=== PATIENT | male | born 1985 | race American Indian/Alaskan Native ===

== ENCOUNTER 2019-09-05 02:27 | Emergency (ER) | payer SELFPAY ==
[2019-09-05 03:09] LABS: Basophils % (Auto) 0.3 % (0.0-1.8); Eosinophils # (Auto) 0.1 K/mm3 (0.0-0.4); Eosinophils % (Auto) 2.5 % (0.0-4.3); Hematocrit 36.6 % (35.5-45.6); Hemoglobin 12.5 gm/dl (11.8-15.2); Lymphocytes # (Auto) 0.9 K/mm3 (1.2-5.4); Lymphocytes % (Auto) 14.6 % (13.4-35.0); Mean Corpuscular HGB Conc 34 % (32-34); Mean Corpuscular Volume 84 fl (84-94); Monocytes # (Auto) 0.4 K/mm3 (0.0-0.8); Monocytes % (Auto) 6.9 % (0.0-7.3); Platelet Count 213 K/mm3 (140-440); Red Blood Count 4.38 M/mm3 (3.65-5.03); Red Cell Distribution Width 14.6 % (13.2-15.2)
[2019-09-05 03:22] LABS: Alanine Aminotransferase 10 units/L (7-56); Albumin 4.4 g/dL (3.9-5); BUN/Creatinine Ratio 14; Blood Urea Nitrogen 10 mg/dL (9-20); Calcium 8.6 mg/dL (8.4-10.2); Hemolysis Index 5
[2019-09-05] MEDS ORDERED: SODIUM CHLORIDE 0.9% 1000 ML 1,000 ML IV ONE (03:49)
[2019-09-05] MEDS ORDERED: MORPHINE 2 MG/1 ML INJ IV ONE (03:49)
[2019-09-05] MEDS ORDERED: methylPREDNISolone Sod Succinate 125 MG/2 ML INJ IV ONE (03:49)
[2019-09-05] MEDS ORDERED: KETOROLAC 30 MG/1 ML INJ IV ONE (03:49)
--- NOTE | 2019-09-05 04:02 | Emergency Department Report ---
ED N/V/D HPI - General Chief complaint: Abdominal Pain Stated complaint: VOMITING,BOTH EAR PAIN,SORE NECK,WHITE STOOL Time Seen by Provider: 09/05/19 03:37 Source: patient Mode of arrival: Ambulatory Limitations: No Limitations - History of Present Illness Initial comments: 34-year-old male presents to ED with report of 2 week history of diarrhea. Antionette ent reports history of Crohn's disease and HIV. States he is not currently on treatment for his Crohn's or HIV. Unknown viral load and CD4 count. A reports left lower quadrant pain, nausea or vomiting. Denies fever. Patient reports that his diarrhea is white and frothy. No improvement with imodium. Patient denies history of any abdominal surgeries. MD complaint: nausea, vomiting, diarrhea, abdominal pain -: week(s) (2) Description of Vomiting: food contents, watery Description of Diarrhea: other (white and frothy) Associated Abdominal Pain: Yes Location: LLQ Radiation: none Severity: moderate Quality: cramping Consistency: intermittent Improves with: none Worsens with: none Context: other (hx of Crohn's) Associated Symptoms: nausea/vomiting. denies: fever/chills - Related Data Previous Rx's Medication Instructions Recorded Last Taken Type HYDROcodone/APAP 5-325 [Oakley 1 - 2 each PO Q6HR PRN #14 tablet 01/08/19 Unknown Rx 5/325] Prednisone [predniSONE 10 mg 10 mg PO .TAPER #1 tab.ds.pk 01/08/19 Unknown Rx (6-Day Pack, 21 Tabs)] Promethazine [Phenergan] 25 mg CO Q6HR PRN #5 supp.rect 01/08/19 Unknown Rx Dicyclomine [Bentyl] 20 mg PO QID PRN #20 tablet 09/05/19 Unknown Rx Diphenoxylate/Atropine [Lomotil] 2 tab PO QID PRN #30 tablet 09/05/19 Unknown Rx Promethazine [Phenergan] 25 mg PO Q6HR PRN #20 tab 09/05/19 Unknown Rx traMADol [Ultram] 50 mg PO Q6HR PRN #7 tablet 09/05/19 Unknown Rx Allergies Allergy/AdvReac Type Severity Reaction Status Date / Time ondansetron [From Zofran] AdvReac Unknown Verified 01/08/19 02:21 ED Review of Systems ROS: Stated complaint: VOMITING,BOTH EAR PAIN,SORE NECK,WHITE STOOL Other details as noted in HPI Comment: All other systems reviewed and negative Constitutional: denies: chills, fever Gastrointestinal: abdominal pain, nausea, vomiting, diarrhea ED Past Medical Hx - Past Medical History Previous Medical History?: Yes Hx HIV: Yes (unknown CD4 count) Additional medical history: Crohns Disease - Surgical History Additional Surgical History: Colonoscopy goes to [facility] - Social History Smoking Status: Current Every Day Smoker Substance Use Type: Marijuana - Medications Home Medications: Home Medications Medication Instructions Recorded Confirmed Last Taken Type HYDROcodone/APAP 5-325 [Oakley 1 - 2 each PO Q6HR PRN #14 tablet 01/08/19 Unknown Rx 5/325] Prednisone [predniSONE 10 mg 10 mg PO .TAPER #1 tab.ds.pk 01/08/19 Unknown Rx (6-Day Pack, 21 Tabs)] Promethazine [Phenergan] 25 mg CO Q6HR PRN #5 supp.rect 01/08/19 Unknown Rx Dicyclomine [Bentyl] 20 mg PO QID PRN #20 tablet 09/05/19 Unknown Rx Diphenoxylate/Atropine [Lomotil] 2 tab PO QID PRN #30 tablet 09/05/19 Unknown Rx Promethazine [Phenergan] 25 mg PO Q6HR PRN #20 tab 09/05/19 Unknown Rx traMADol [Ultram] 50 mg PO Q6HR PRN #7 tablet 09/05/19 Unknown Rx ED Physical Exam - General Limitations: No Limitations General appearance: alert, in no apparent distress - Head Head exam: Present: atraumatic, normocephalic - Eye Eye exam: Present: normal appearance - ENT ENT exam: Present: mucous membranes moist - Neck Neck exam: Present: normal inspection - Respiratory Respiratory exam: Present: normal lung sounds bilaterally. Absent: respiratory distress - Cardiovascular Cardiovascular Exam: Present: regular rate, normal rhythm - GI/Abdominal GI/Abdominal exam: Present: soft, tenderness (mild LLQ tenderness). Absent: distended, guarding, rebound - Extremities Exam Extremities exam: Present: normal inspection - Neurological Exam Neurological exam: Present: alert, oriented X3 - Psychiatric Psychiatric exam: Present: normal affect, normal mood - Skin Skin exam: Present: warm, dry, intact, normal color. Absent: rash ED Course Vital Signs 09/05/19 09/05/19 02:31 04:15 Temperature 98.2 F 98 F Pulse Rate 96 H 93 H Respiratory 18 20 Rate Blood Pressure 118/82 Blood Pressure 117/82 [Left] O2 Sat by Pulse 97 99 Oximetry ED Medical Decision Making - Lab Data Result diagrams: 09/05/19 02:48 09/05/19 02:48 - Radiology Data Radiology results: report reviewed, image reviewed - Medical Decision Making Patient is nontoxic appearing. Labs normal, CT scan unremarkable. Vital signs normal. Patient received IV fluids, pain medication here in the ED. Lomotil given. Stool culture sent. Will discharge at this time. Patient states he has a certified court/medical interpreter at [place] that he will be following up with. Return precautions given. - Differential Diagnosis Crohn's flare, cryptosporidia, bowel obstruction Critical care attestation.: If time is entered above; I have spent that time in minutes in the direct care of this critically ill patient, excluding procedure time. ED Disposition Clinical Impression: Vomiting and diarrhea, Abdominal pain Disposition: TO HOME OR SELFCARE Is pt being admited?: No Condition: Stable Instructions: Abdominal Pain (ED), Nutrition Tips for Relief of Diarrhea (ED), Acute Diarrhea (ED) Prescriptions: Dicyclomine [Bentyl] 20 mg PO QID PRN #20 tablet PRN Reason: abdominal pain Diphenoxylate/Atropine [Lomotil] 2 tab PO QID PRN #30 tablet PRN Reason: Diarrhea Promethazine [Phenergan] 25 mg PO Q6HR PRN #20 tab PRN Reason: Nausea traMADol [Ultram] 50 mg PO Q6HR PRN #7 tablet PRN Reason: Pain Referrals: PRIMARY CARE, [Primary Care Provider] - 3-5 Days [facility] [Provider Group] - 3-5 Days Time of Disposition: 05:25
--- NOTE | 2019-09-05 05:05 | Cat Scan Report ---
CT ABDOMEN AND PELVIS WITH CONTRAST INDICATION / CLINICAL INFORMATION: abd pain, diarrhea, hx Crohn's. TECHNIQUE: Axial CT images were obtained through the abdomen and pelvis after 100 mL Omnipaque [address] scans at this location are performed using CT dose reduction for ALARA by means of automated exposure control. COMPARISON: CT abdomen pelvis 01/08/2019 FINDINGS: LOWER CHEST: No significant abnormality. LIVER: No significant abnormality. BILIARY SYSTEM: No significant abnormality. PANCREAS: No significant abnormality. SPLEEN: No significant abnormality. ADRENALS: No significant abnormality. KIDNEYS and URETERS: No significant abnormality. STOMACH / BOWEL: The distal small bowel as well as the colon are prominent and fluid-filled with mild mucosal hyperenhancement. No significant wall thickening or pericolonic inflammatory change noted. T here is no evidence of bowel obstruction. No definite evidence for strictures. PERITONEUM: No free fluid. No free air. No fluid collection. LYMPH NODES: No significant adenopathy. VASCULAR STRUCTURES: No significant abnormality. URINARY BLADDER: No significant abnormality. REPRODUCTIVE ORGANS: No significant abnormality. ADDITIONAL FINDINGS: None. SKELETAL SYSTEM: No significant abnormality. IMPRESSION: 1. Prominent, fluid-filled loops of distal small bowel and colon. Findings may be seen in the setting of a diarrheal illness, which may be either infectious or inflammatory in etiology. No evidence of b owel obstruction or significant perienteric inflammation. Signer Name: Radha Díaz MD Signed: 09/05/2019 5:00 AM Workstation Name: [id number]
[2019-09-05] MEDS ORDERED: DIPHENOXYLATE/ATROPINE TAB PO ONE (05:26)
[2019-09-05 06:15] VITALS: BP 115/79
== END 2019-09-05 06:42 | disposition home or self-care (01) ==
LOC: ED 02:27
DX: R11.2 Nausea with vomiting, unspecified (principal); R19.7 Diarrhea, unspecified; R10.32 Left lower quadrant pain; F17.200 Nicotine dependence, unspecified, uncomplicated; F12.10 Cannabis abuse, uncomplicated; Z79.899 Other long term (current) drug therapy; Z21 Asymptomatic human immunodeficiency virus [HIV] infection status; Z88.8 Allergy status to other drugs, medicaments and biological substances
CPT/HCPCS: 36415; 74177; 80053; 85025; 96361; 96374; 96375; 99284; J1885; J2270; J2930; J7030; Q9967

== ENCOUNTER 2020-09-02 12:39 | Inpatient (IN) | payer MEDICARE ==
--- NOTE | 2020-09-02 14:50 | Emergency Department Report ---
ED Fever HPI - General Chief Complaint: Fever Stated Complaint: CHEST PAIN PUI?: No Time Seen by Provider: 09/02/20 13:02 Source: patient Exam Limitations: no limitations - History of Present Illness Initial Comments: This is a 35-year-old male with history of HIV/AIDS, methamphetamine abuse, Crohn's disease, ulcerative colitis, possible lymphoma who presents with fever chest pain dark stools, enlarged lymph nodes. Patient has been ill for 1 week. He has had intermittent chest pressure sensation, central moderate severity no radiation. Chest pain began 1 week ago. He also has enlarged inflamed lymph nodes in his axillary region and groin. He has had dark stools. According to EMR CD4 count 20. Timing/Duration: week (1) Fever Severity/Quality: subjective Associated Symptoms: chest pain, other (dark stools) ED Review of Systems ROS: Stated complaint: CHEST PAIN Other details as noted in HPI Comment: All other systems reviewed and negative Constitutional: fever, malaise Cardiovascular: chest pain Gastrointestinal: hematochezia. denies: abdominal pain, nausea, vomiting ED Past Medical Hx - Past Medical History Previous Medical History?: Yes Hx Congestive Heart Failure: No Hx Diabetes: No Hx Asthma: No Hx COPD: No Hx HIV: Yes Additional medical history: Crohns Disease. lyphoma - Surgical History Past Surgical History?: Yes Additional Surgical History: Colonoscopy goes to [facility] - Social History Smoking Status: Never Smoker Substance Use Type: None - Medications Home Medications: Home Medications Medication Instructions Recorded Confirmed Last Taken Type Fluconazole [Diflucan TAB] 200 mg PO QDAY #7 tablet 07/17/20 Unknown Rx Sulfamethoxazole/Trimethoprim 1 each PO DAILY #30 tablet 07/17/20 Unknown Rx [Bactrim DS TAB] ED Physical Exam - General Limitations: No Limitations General appearance: alert, in no apparent distress, other (Frail, dry skin, thin hair) - Head Head exam: Present: atraumatic, normocephalic - Eye Eye exam: Present: normal appearance - ENT ENT exam: Present: mucous membranes dry - Neck Neck exam: Present: normal inspection, full ROM - Respiratory Respiratory exam: Present: normal lung sounds bilaterally. Absent: respiratory distress, wheezes, rales, rhonchi - Cardiovascular Cardiovascular Exam: Present: regular rate, normal rhythm, normal heart sounds. Absent: systolic murmur, diastolic murmur, rubs, gallop - GI/Abdominal GI/Abdominal exam: Present: soft, normal bowel sounds. Absent: distended, tenderness, guarding, rebound - Rectal Rectal exam: Present: heme (-) stool (light brown stool) - Extremities Exam Extremities exam: Present: normal inspection - Neurological Exam Neurological exam: Present: alert, oriented X3 - Psychiatric Psychiatric exam: Present: normal affect, normal mood - Skin Skin exam: Present: pallor, other (Dry flaky skin on face). Absent: rash ED Course Vital Signs 09/02/20 12:54 Temperature 99.2 F Pulse Rate 98 H Respiratory 20 Rate Blood Pressure 102/72 O2 Sat by Pulse 96 Oximetry ED Medical Decision Making - Lab Data Result diagrams: 09/02/20 14:21 09/02/20 14:21 - EKG Data EKG shows normal: sinus rhythm, axis, intervals, QRS complexes Rate: normal - EKG Data Interpretation: pericarditis 09/02/20 14:49 EKG obtained 1259 EKG interpreted by me Normal sinus rhythm rate 95 bpm normal axis normal intervals diffuse ST patsy vation in the inferior lateral leads AL depression in the inferior leads - Medical Decision Making Mr. Hong is a 35-year-old male with history of AIDS CD4 count 20 who presents with chest pain, lymphadenopathy, dark stools. EKG shows signs of pericarditis, opportunistic pathogens are possible in this scenario. Echocardiogram cardiac Isis may be beneficial imaging will be beneficial History of dark stools, since December 2018 patient has had steady decline of hemoglobin hematocrit. Suspicious of chronic blood loss versus anemia of chronic disease. Today's stool light brown Hemoccult negative. Critical care attestation.: If time is entered above; I have spent that time in minutes in the direct care of this critically ill patient, excluding procedure time. ED Disposition Clinical Impression: Acute pericarditis, AIDS, Anemia, History of Crohn's disease Disposition: OP ADMIT IP TO THIS HOSP Is pt being admited?: Yes Does the pt Need Aspirin: No Condition: Stable
[2020-09-02 14:58] LABS: Mean Corpuscular HGB Conc 33 % (32-34); Mean Corpuscular Volume 85 fl (84-94); Platelet Count 191 K/mm3 (140-440); Red Blood Count 2.18 M/mm3 (3.65-5.03); Red Cell Distribution Width 14.8 % (13.2-15.2)
[2020-09-02 15:06] LABS: Alanine Aminotransferase 43 units/L (7-56); Albumin 2.9 g/dL (3.9-5); BUN/Creatinine Ratio 20; Blood Urea Nitrogen 12 mg/dL (9-20); Calcium 7.4 mg/dL (8.4-10.2); Hematocrit 18.5 % (35.5-45.6); Hemoglobin 6.2 gm/dl (11.8-15.2); Hemolysis Index 39
[2020-09-02] MEDS ORDERED: SODIUM CHLORIDE 0.9% 1000 ML 1,000 ML IV ONE (15:53)
[2020-09-02] MEDS ORDERED: HYDROcodone/ACETAMINOPHEN 5-325 MG TAB PO ONE (15:53)
--- NOTE | 2020-09-02 16:27 | XRay Report ---
CHEST 1 VIEW INDICATION / CLINICAL INFORMATION: fever HIV. FINDINGS: SUPPORT DEVICES: None. HEART / MEDIASTINUM: No significant abnormality. LUNGS / PLEURA: No significant pulmonary or pleural abnormality. No pneumothorax. ADDITIONAL FINDINGS: No significant additional findings. IMPRESSION: 1. No acute findings. Signer Name: Jarad Samuel MD Signed: 09/02/2020 4:23 PM Workstation Name: [id number]
[2020-09-02 17:24] LABS: Total Cells Counted 100
[2020-09-02 17:25] LABS: Anisocytosis Few
[2020-09-02] MEDS: KETOROLAC 30 MG/1 ML INJ IM PRN (21:17)
[2020-09-03] MEDS ORDERED: SODIUM CHLORIDE 0.9% 500 ML 500 ML IV ONE (02:33)
--- NOTE | 2020-09-03 02:49 | History and Physical Report ---
History of Present Illness Date of examination: 09/02/20 Date of admission: 09/02/20 15:55 Chief complaint: Fever and chest pain for 1 week History of present illness: 35-year-old male with history of HIV/AIDS, methamphetamine abuse, ulcerative colitis and Crohn's disease and possible lymphoma comes in with fever and left- sided chest pain for 1 week. Also dark stools. Chest pain is moderate nonradiating. No diaphoresis no shortness of breath. Is been intermittent and going on for 1 week. Low-grade fever present. No orthopnea. No exacerbating or precipitating factors. - Past Medical History Previous Medical History?: Yes Hx HIV: Yes Additional medical history: Crohns Disease. lymphoma - Surgical History Past Surgical History?: Yes Additional Surgical History: Colonoscopy goes to [facility] - Social History Smoking Status: Never Smoker Substance Use Type: None - Medications Home Medications: Home Medications Medication Instructions Recorded Confirmed Last Taken Type Fluconazole [Diflucan TAB] 200 mg PO QDAY #7 tablet 07/17/20 Unknown Rx Sulfamethoxazole/Trimethoprim 1 each PO DAILY #30 tablet 07/17/20 Unknown Rx [Bactrim DS TAB] Review of Systems ROS: Stated complaint: CHEST PAIN Other details as noted in HPI Comment: All other systems reviewed and negative Constitutional: fever, malaise Cardiovascular: chest pain Gastrointestinal: hematochezia. denies: abdominal pain, nausea, vomiting Medications and Allergies Allergies Allergy/AdvReac Type Severity Reaction Status Date / Time ondansetron [From Zofran] AdvReac Unknown Verified 01/08/19 02:21 Home Medications Medication Instructions Recorded Confirmed Last Taken Type No Known Home Medications [No 09/02/20 09/02/20 Unknown History Reported Home Medications] Active Meds: Active Medications Sodium Chloride (Nacl 0.9% 500 Ml) 500 mls @ 0 mls/hr IV ONCE ONE Stop: 09/03/20 02:34 Ketorolac Tromethamine (Toradol) 15 mg IM Q6HR PRN PRN Reason: Pain Stop: 09/07/20 20:55 Last Admin: 09/02/20 21:17 Dose: 15 mg Documented by: Exam - Constitutional Vitals: Temp Pulse Resp BP Pulse Ox 98.5 F 91 H 20 98/62 100 09/02/20 20:50 09/03/20 00:43 09/03/20 00:43 09/02/20 20:50 09/03/20 00:43 General appearance: Present: no acute distress, well-nourished - EENT Eyes: Present: PERRL ENT: hearing intact, clear oral mucosa - Neck Neck: Present: supple, normal ROM - Respiratory Respiratory effort: normal Respiratory: bilateral: CTA - Cardiovascular Heart rate: 78 Rhythm: regular Heart Sounds: Present: S1 & S2. Absent: rub, click - Extremities Extremities: pulses symmetrical, No edema Peripheral Pulses: within normal limits - Abdominal General gastrointestinal: Present: soft, non-tender, non-distended, normal bowel sounds Male genitourinary: Present: normal - Rectal Rectal Exam: stool brown - Integumentary Integumentary: Present: clear, warm, dry - Musculoskeletal Musculoskeletal: gait normal, strength equal bilaterally - Psychiatric Psychiatric: appropriate mood/affect, intact judgment & insight - Neurologic Neurologic: CNII-XII intact, moves all extremities - Allied Health Allied health notes reviewed: nursing, case management HEART Score - HEART Score History: Moderately suspicious Risk factors: No known risk factors Troponin: Troponin T < 0.010 ng/mL (0.00-0.029) 09/02/20 14:21 Troponin: < normal limit - Critical Actions Critical Actions: 4-6 pts:12-16.6% risk of adverse cardiac event. Should be admitted Results - Labs CBC & Chem 7: 09/02/20 14:21 09/02/20 14:21 Labs: Laboratory Last Values WBC 4.3 K/mm3 (4.5-11.0) L 09/02/20 14:21 RBC 2.18 M/mm3 (3.65-5.03) L 09/02/20 14:21 Hgb 6.2 gm/dl (11.8-15.2) L 09/02/20 14:21 Hct 18.5 % (35.5-45.6) L* 09/02/20 14:21 MCV 85 fl (84-94) 09/02/20 14:21 MCH 28 pg (28-32) 09/02/20 14:21 MCHC 33 % (32-34) 09/02/20 14:21 RDW 14.8 % (13.2-15.2) 09/02/20 14:21 Plt Count 191 K/mm3 (140-440) 09/02/20 14:21 [place] % (Auto) Direct Support Professional Caregiver 09/02/20 14:21 Add Manual Diff Complete 09/02/20 14:21 Total Counted 100 09/02/20 14:21 Seg Neuts % (Manual) 46.0 % (40.0-70.0) 09/02/20 14:21 Band Neutrophils % 0 % 09/02/20 14:21 Lymphocytes % (Manual) 29.0 % (13.4-35.0) 09/02/20 14:21 Reactive Lymphs % (Man) 0 % 09/02/20 14:21 Monocytes % (Manual) 16.0 % (0.0-7.3) H 09/02/20 14:21 Eosinophils % (Manual) 7.0 % (0.0-4.3) H 09/02/20 14:21 Basophils % (Manual) 2.0 % (0.0-1.8) H 09/02/20 14:21 Metamyelocytes % 0 % 09/02/20 14:21 Myelocytes % 0 % 09/02/20 14:21 Promyelocytes % 0 % 09/02/20 14:21 Blast Cells % 0 % 09/02/20 14:21 Nucleated RBC % Not Reportable 09/02/20 14:21 Seg Neutrophils # Man 2.0 K/mm3 (1.8-7.7) 09/02/20 14:21 Band Neutrophils # 0.0 K/mm3 09/02/20 14:21 Lymphocytes # (Manual) 1.2 K/mm3 (1.2-5.4) 09/02/20 14:21 Abs React Lymphs (Man) 0.0 K/mm3 09/02/20 14:21 Monocytes # (Manual) 0.7 K/mm3 (0.0-0.8) 09/02/20 14:21 Eosinophils # (Manual) 0.3 K/mm3 (0.0-0.4) 09/02/20 14:21 Basophils # (Manual) 0.1 K/mm3 (0.0-0.1) 09/02/20 14:21 Metamyelocytes # 0.0 K/mm3 09/02/20 14:21 Myelocytes # 0.0 K/mm3 09/02/20 14:21 Promyelocytes # 0.0 K/mm3 09/02/20 14:21 Blast Cells # 0.0 K/mm3 09/02/20 14:21 WBC Morphology Not Reportable 09/02/20 14:21 Hypersegmented Neuts Not Reportable 09/02/20 14:21 Hyposegmented Neuts Not Reportable 09/02/20 14:21 Hypogranular Neuts Not Reportable 09/02/20 14:21 Smudge Cells Not Reportable 09/02/20 14:21 Toxic Granulation Not Reportable 09/02/20 14:21 Toxic Vacuolation Not Reportable 09/02/20 14:21 Dohle Bodies Not Reportable 09/02/20 14:21 Pelger-Huet Anomaly Not Reportable 09/02/20 14:21 Leah Rods Not Reportable 09/02/20 14:21 Platelet Estimate Not Reportable 09/02/20 14:21 Clumped Platelets Not Reportable 09/02/20 14:21 Plt Clumps, EDTA Not Reportable 09/02/20 14:21 Large Platelets Not Reportable 09/02/20 14:21 Giant Platelets Not Reportable 09/02/20 14:21 Platelet Satelliting Not Reportable 09/02/20 14:21 Plt Morphology Comment Not Reportable 09/02/20 14:21 RBC Morphology Not Reportable 09/02/20 14:21 Dimorphic RBCs Not Reportable 09/02/20 14:21 Polychromasia Not Reportable 09/02/20 14:21 Hypochromasia Not Reportable 09/02/20 14:21 Poikilocytosis Not Reportable 09/02/20 14:21 Anisocytosis Few 09/02/20 14:21 Microcytosis Few 09/02/20 14:21 Macrocytosis Not Reportable 09/02/20 14:21 Spherocytes Not Reportable 09/02/20 14:21 Pappenheimer Bodies Not Reportable 09/02/20 14:21 Sickle Cells Not Reportable 09/02/20 14:21 Target Cells Not Reportable 09/02/20 14:21 Tear Drop Cells Not Reportable 09/02/20 14:21 Ovalocytes Not Reportable 09/02/20 14:21 Helmet Cells Not Reportable 09/02/20 14:21 [place] Bodies Not Reportable 09/02/20 14:21 [place] Rings Not Reportable 09/02/20 14:21 [place] Cells Not Reportable 09/02/20 14:21 Bite Cells Not Reportable 09/02/20 14:21 Crenated Cell Not Reportable 09/02/20 14:21 Elliptocytes Not Reportable 09/02/20 14:21 Acanthocytes (Spur) Not Reportable 09/02/20 14:21 Rouleaux Not Reportable 09/02/20 14:21 Hemoglobin C Crystals Not Reportable 09/02/20 14:21 Schistocytes Not Reportable 09/02/20 14:21 Malaria parasites Not Reportable 09/02/20 14:21 Praveen Bodies Not Reportable 09/02/20 14:21 Hem Pathologist Commnt No 09/02/20 14:21 Sodium 141 mmol/L (137-145) 09/02/20 14:21 Potassium 3.7 mmol/L (3.6-5.0) 09/02/20 14:21 Chloride 109.8 mmol/L (98-107) H 09/02/20 14:21 Carbon Dioxide 22 mmol/L (22-30) 09/02/20 14:21 Anion Gap 13 mmol/L 09/02/20 14:21 BUN 12 mg/dL (9-20) 09/02/20 14:21 Creatinine 0.6 mg/dL (0.8-1.3) L 09/02/20 14:21 Estimated GFR > 60 ml/min 09/02/20 14:21 BUN/Creatinine Ratio 20 % 09/02/20 14:21 Glucose 79 mg/dL (75-100) 09/02/20 14:21 Lactic Acid 1.00 mmol/L (0.7-2.0) 09/02/20 16:44 Calcium 7.4 mg/dL (8.4-10.2) L 09/02/20 14:21 Total Bilirubin 0.30 mg/dL (0.1-1.2) 09/02/20 14:21 AST 42 units/L (5-40) H 09/02/20 14:21 ALT 43 units/L (7-56) 09/02/20 14:21 Alkaline Phosphatase 176 units/L (35-129) H 09/02/20 14:21 Troponin T < 0.010 ng/mL (0.00-0.029) 09/02/20 14:21 Total Protein 6.5 g/dL (6.3-8.2) 09/02/20 14:21 Albumin 2.9 g/dL (3.9-5) L 09/02/20 14:21 Albumin/Globulin Ratio 0.8 % 09/02/20 14:21 Short CBC 09/02/20 Range/Units 14:21 WBC 4.3 L (4.5-11.0) K/mm3 Hgb 6.2 L (11.8-15.2) gm/dl Hct 18.5 L* (35.5-45.6) % Plt Count 191 (140-440) K/mm3 BMP 09/02/20 14:21 Sodium 141 Potassium 3.7 Chloride 109.8 H Carbon Dioxide 22 BUN 12 Creatinine 0.6 L Glucose 79 Calcium 7.4 L Cardiac Enzymes 09/02/20 Range/Units 14:21 Troponin T < 0.010 (0.00-0.029) ng/mL Liver Function 09/02/20 Range/Units 14:21 Total Bilirubin 0.30 (0.1-1.2) mg/dL AST 42 H (5-40) units/L ALT 43 (7-56) units/L Alkaline Phosphatase 176 H (35-129) units/L Albumin 2.9 L (3.9-5) g/dL Microbiology: Microbiology 09/02/20 14:25 Peripheral/Venous Blood Culture - Preliminary Culture in Progress 09/02/20 14:21 Peripheral/Venous Blood Culture - Preliminary Culture in Progress - Imaging and Cardiology Chest x-ray: report reviewed (No acute findings) Solis/IV: Voiding Method Urinal Assessment and Plan Advance Directives: Yes (Full code) VTE prophylaxis?: Chemical Plan of care discussed with patient/family: Yes - Patient Problems (1) SIRS (systemic inflammatory response syndrome) Current Visit: Yes Status: Acute Plan to address problem: Patient has been having fever for 1 day (2) GI bleed Current Visit: Yes Status: Acute Qualifiers: GI bleed type/associated pathology: melena Qualified Code(s): K92.1 - Melena Plan to address problem: Patient has been having dark stools. Possible upper GI bleed hemoglobin is low at 6.2 (3) Febrile illness, acute Current Visit: No Status: Acute Plan to address problem: Etiology unclear Possible pericarditis ID consult (4) Chest pain Current Visit: Yes Status: Acute Qualifiers: Chest pain type: unspecified Qualified Code(s): R07.9 - Chest pain, unspecified Plan to address problem: Serial troponins Nonsteroidal anti-inflammatories Differential diagnosis of pericarditis (5) HIV (human immunodeficiency virus infection) Current Visit: Yes Status: Chronic Qualifiers: HIV symptom status: unspecified Qualified Code(s): B20 - Human immunodeficiency virus [HIV] disease Plan to address problem: To continue antiretrovirals. Patient did not mention any home medications (6) History of Crohn's disease Current Visit: Yes Status: Chronic Plan to address problem: Not on any medication (7) Symptomatic anemia Current Visit: Yes Status: Acute Plan to address problem: Transfuse 1 unit of packed red blood cells GI consult (8) DVT prophylaxis Current Visit: No Status: Acute Plan to address problem: On heparin and GI prophylaxis
[2020-09-03] MEDS ORDERED: ONDANSETRON 4 MG/2 ML INJ IV PRN (02:56)
[2020-09-03] MEDS ORDERED: SODIUM CHLORIDE 0.9% 1000 ML 1,000 ML IV SCH (03:00)
[2020-09-03 03:11] LABS: Bilirubin,Urine NEG (Negative); Blood,Urine NEG (Negative); Color,Urine Yellow (Yellow); Mucus,Urine FEW /HPF
[2020-09-03] MEDS: HYDROmorphone 1 MG/1 ML INJ IV PRN ×3 (04:01→21:43)
[2020-09-03 05:37] LABS: Hematocrit 25.6 % (35.5-45.6); Hemoglobin 8.8 gm/dl (11.8-15.2); Mean Corpuscular HGB Conc 35 % (32-34); Mean Corpuscular Volume 84 fl (84-94); Platelet Count 228 K/mm3 (140-440); Red Blood Count 3.06 M/mm3 (3.65-5.03); Red Cell Distribution Width 14.7 % (13.2-15.2)
[2020-09-03 05:51] LABS: Alanine Aminotransferase 46 units/L (7-56); Albumin 3.1 g/dL (3.9-5); BUN/Creatinine Ratio 17; Blood Urea Nitrogen 10 mg/dL (9-20); Calcium 7.7 mg/dL (8.4-10.2); Hemolysis Index 5
[2020-09-03 06:50] LABS: Band Neutrophils # (Manual) 0.2 K/mm3; Basophils % (Manual) 0 % (0.0-1.8); Total Cells Counted 100
[2020-09-03 06:51] LABS: Anisocytosis Few; Platelet Estimate Consistent w Auto; Stomatocytes Few; Target Cells Few
--- NOTE | 2020-09-03 07:46 | Progress Note ---
Assessment and Plan Assessment and plan: --SIRS (systemic inflammatory response syndrome) Current Visit: Yes Status: Acute Plan to address problem: Patient has been having fever for 1 day Afebrile today closely monitor --GI bleed Current Visit: Yes Status: Acute Plan to address problem: Patient has been having dark stools. Possible upper GI bleed hemoglobin is low at 6.2-8.8 Possible EGD tomorrow --Symptomatic /acute versus chronic blood loss anemia Current Visit: Yes Status: Acute Plan to address problem: Hemoglobin 6.2 Improved to 8.8 Closely monitor, follow GI evaluation recommendation -- Febrile illness, acute Current Visit: No Status: Acute Plan to address problem: Etiology unclear Possible pericarditis ID consult -- Chest pain Current Visit: Yes Status: Acute Plan to address problem: Serial troponins Nonsteroidal anti-inflammatories Differential diagnosis of pericarditis -- HIV (human immunodeficiency virus infection) Current Visit: Yes Status: Chronic Plan to address problem: To continue antiretrovirals. Patient did not mention any home medications --History of Crohn's disease Current Visit: Yes Status: Chronic Plan to address problem: Not on any medication --DVT prophylaxis Current Visit: No Status: Acute Plan to address problem: On heparin and GI prophylaxis Follow clinical practice consultant recommendations Plan of care reviewed with the patient and his nurse History Interval history: I have seen and examined the patient at the bedside this morning Patient's chart and medications reviewed Patient complains of some black stool Pending GI evaluation Vital signs noted Hospitalist Physical - Constitutional Vitals: Temp Pulse Resp BP Pulse Ox 98.5 F 101 H 20 104/65 96 09/02/20 20:50 09/03/20 05:51 09/03/20 00:43 09/03/20 05:51 09/03/20 05:51 General appearance: Present: no acute distress, well-nourished - EENT Eyes: Present: PERRL, EOM intact - Neck Neck: Present: supple, normal ROM - Respiratory Respiratory effort: normal Respiratory: bilateral: diminished, negative: rales, rhonchi, wheezing - Cardiovascular Rhythm: regular Heart Sounds: Present: S1 & S2 - Extremities Extremities: no ischemia, No edema - Abdominal General gastrointestinal: soft, non-tender, non-distended, normal bowel sounds - Integumentary Integumentary: Present: clear, warm - Psychiatric Psychiatric: appropriate mood/affect, cooperative - Neurologic Neurologic: moves all extremities HEART Score - HEART Score Risk factors: No known risk factors Troponin: Troponin T < 0.010 ng/mL (0.00-0.029) 09/03/20 04:39 Troponin: < normal limit - Critical Actions Critical Actions: 4-6 pts:12-16.6% risk of adverse cardiac event. Should be admitted Results - Labs CBC & Chem 7: 09/03/20 04:39 09/03/20 04:39 Labs: Laboratory Last Values WBC 3.3 K/mm3 (4.5-11.0) L 09/03/20 04:39 RBC 3.06 M/mm3 (3.65-5.03) L 09/03/20 04:39 Hgb 8.8 gm/dl (11.8-15.2) L 09/03/20 04:39 Hct 25.6 % (35.5-45.6) L D 09/03/20 04:39 MCV 84 fl (84-94) 09/03/20 04:39 MCH 29 pg (28-32) 09/03/20 04:39 MCHC 35 % (32-34) H 09/03/20 04:39 RDW 14.7 % (13.2-15.2) 09/03/20 04:39 Plt Count 228 K/mm3 (140-440) 09/03/20 04:39 [place] % (Auto) Site Worker 09/03/20 04:39 Eos % (Auto) Site Worker 09/03/20 04:39 Baso % (Auto) Site Worker 09/03/20 04:39 Add Manual Diff Complete 09/03/20 04:39 Total Counted 100 09/03/20 04:39 Seg Neuts % (Manual) 48.0 % (40.0-70.0) 09/03/20 04:39 Band Neutrophils % 5.0 % 09/03/20 04:39 Lymphocytes % (Manual) 24.0 % (13.4-35.0) 09/03/20 04:39 Reactive Lymphs % (Man) 0 % 09/03/20 04:39 Monocytes % (Manual) 4.0 % (0.0-7.3) 09/03/20 04:39 Eosinophils % (Manual) 19.0 % (0.0-4.3) H 09/03/20 04:39 Basophils % (Manual) 0 % (0.0-1.8) 09/03/20 04:39 Metamyelocytes % 0 % 09/03/20 04:39 Myelocytes % 0 % 09/03/20 04:39 Promyelocytes % 0 % 09/03/20 04:39 Blast Cells % 0 % 09/03/20 04:39 Nucleated RBC % Not Reportable 09/03/20 04:39 Seg Neutrophils # Man 1.6 K/mm3 (1.8-7.7) L 09/03/20 04:39 Band Neutrophils # 0.2 K/mm3 09/03/20 04:39 Lymphocytes # (Manual) 0.8 K/mm3 (1.2-5.4) L 09/03/20 04:39 Abs React Lymphs (Man) 0.0 K/mm3 09/03/20 04:39 Monocytes # (Manual) 0.1 K/mm3 (0.0-0.8) 09/03/20 04:39 Eosinophils # (Manual) 0.6 K/mm3 (0.0-0.4) H 09/03/20 04:39 Basophils # (Manual) 0.0 K/mm3 (0.0-0.1) 09/03/20 04:39 Metamyelocytes # 0.0 K/mm3 09/03/20 04:39 Myelocytes # 0.0 K/mm3 09/03/20 04:39 Promyelocytes # 0.0 K/mm3 09/03/20 04:39 Blast Cells # 0.0 K/mm3 09/03/20 04:39 WBC Morphology Not Reportable 09/03/20 04:39 Hypersegmented Neuts Not Reportable 09/03/20 04:39 Hyposegmented Neuts Not Reportable 09/03/20 04:39 Hypogranular Neuts Not Reportable 09/03/20 04:39 Smudge Cells Not Reportable 09/03/20 04:39 Toxic Granulation Not Reportable 09/03/20 04:39 Toxic Vacuolation Not Reportable 09/03/20 04:39 Dohle Bodies Not Reportable 09/03/20 04:39 Pelger-Huet Anomaly Not Reportable 09/03/20 04:39 Leah Rods Not Reportable 09/03/20 04:39 Platelet Estimate Consistent w auto 09/03/20 04:39 Clumped Platelets Not Reportable 09/03/20 04:39 Plt Clumps, EDTA Not Reportable 09/03/20 04:39 Large Platelets Not Reportable 09/03/20 04:39 Giant Platelets Not Reportable 09/03/20 04:39 Platelet Satelliting Not Reportable 09/03/20 04:39 Plt Morphology Comment Not Reportable 09/03/20 04:39 RBC Morphology Not Reportable 09/03/20 04:39 Dimorphic RBCs Not Reportable 09/03/20 04:39 Polychromasia Not Reportable 09/03/20 04:39 Hypochromasia Not Reportable 09/03/20 04:39 Poikilocytosis Not Reportable 09/03/20 04:39 Anisocytosis Few 09/03/20 04:39 Microcytosis Not Reportable 09/03/20 04:39 Macrocytosis Not Reportable 09/03/20 04:39 Spherocytes Not Reportable 09/03/20 04:39 Pappenheimer Bodies Not Reportable 09/03/20 04:39 Sickle Cells Not Reportable 09/03/20 04:39 Target Cells Few 09/03/20 04:39 Tear Drop Cells Not Reportable 09/03/20 04:39 Ovalocytes Not Reportable 09/03/20 04:39 Stomatocytes Few 09/03/20 04:39 Helmet Cells Not Reportable 09/03/20 04:39 Masters-Smyer Bodies Not Reportable 09/03/20 04:39 [place] Rings Not Reportable 09/03/20 04:39 Kaylin Cells Not Reportable 09/03/20 04:39 Bite Cells Not Reportable 09/03/20 04:39 Crenated Cell Not Reportable 09/03/20 04:39 Elliptocytes Not Reportable 09/03/20 04:39 Acanthocytes (Spur) Not Reportable 09/03/20 04:39 Rouleaux Not Reportable 09/03/20 04:39 Hemoglobin C Crystals Not Reportable 09/03/20 04:39 Schistocytes Not Reportable 09/03/20 04:39 Malaria parasites Not Reportable 09/03/20 04:39 Praveen Bodies Not Reportable 09/03/20 04:39 Hem Pathologist Commnt No 09/03/20 04:39 Sodium 136 mmol/L (137-145) L 09/03/20 04:39 Potassium 3.7 mmol/L (3.6-5.0) 09/03/20 04:39 Chloride 100.9 mmol/L (98-107) 09/03/20 04:39 Carbon Dioxide 22 mmol/L (22-30) 09/03/20 04:39 Anion Gap 17 mmol/L 09/03/20 04:39 BUN 10 mg/dL (9-20) 09/03/20 04:39 Creatinine 0.6 mg/dL (0.8-1.3) L 09/03/20 04:39 Estimated GFR > 60 ml/min 09/03/20 04:39 BUN/Creatinine Ratio 17 % 09/03/20 04:39 Glucose 92 mg/dL (75-100) 09/03/20 04:39 Hemoglobin A1c 5.4 % (4-6) 09/03/20 04:39 Lactic Acid 1.00 mmol/L (0.7-2.0) 09/02/20 16:44 Calcium 7.7 mg/dL (8.4-10.2) L 09/03/20 04:39 Total Bilirubin 0.30 mg/dL (0.1-1.2) 09/03/20 04:39 AST 45 units/L (5-40) H 09/03/20 04:39 ALT 46 units/L (7-56) 09/03/20 04:39 Alkaline Phosphatase 211 units/L (35-129) H 09/03/20 04:39 Troponin T < 0.010 ng/mL (0.00-0.029) 09/03/20 04:39 Total Protein 7.0 g/dL (6.3-8.2) 09/03/20 04:39 Albumin 3.1 g/dL (3.9-5) L 09/03/20 04:39 Albumin/Globulin Ratio 0.8 % 09/03/20 04:39 Urine Color Yellow (Yellow) 09/02/20 Unknown Urine Turbidity Clear (Clear) 09/02/20 Unknown Urine pH 6.0 (5.0-7.0) 09/02/20 Unknown Ur Specific [place] 1.020 (1.003-1.030) 09/02/20 Unknown Urine Protein 30 mg/dl mg/dL (Negative) 09/02/20 Unknown Urine Glucose (UA) Neg mg/dL (Negative) 09/02/20 Unknown Urine Ketones Neg mg/dL (Negative) 09/02/20 Unknown Urine Blood Neg (Negative) 09/02/20 Unknown Urine Nitrite Neg (Negative) 09/02/20 Unknown Urine Bilirubin Neg (Negative) 09/02/20 Unknown Urine Urobilinogen 4.0 mg/dL (<2.0) 09/02/20 Unknown Ur Leukocyte Esterase Neg (Negative) 09/02/20 Unknown Urine WBC (Auto) 3.0 /HPF (0.0-6.0) 09/02/20 Unknown Urine RBC (Auto) 1.0 /HPF (0.0-6.0) 09/02/20 Unknown U Epithel Cells (Auto) < 1.0 /HPF (0-13.0) 09/02/20 Unknown Urine Mucus Few /HPF 09/02/20 Unknown Blood Type A POSITIVE 09/03/20 04:45 Antibody Screen Negative 09/03/20 04:45 Crossmatch See Detail 09/03/20 04:45 Microbiology: Microbiology 09/02/20 14:25 Peripheral/Venous Blood Culture - Preliminary Culture in Progress 09/02/20 14:21 Peripheral/Venous Blood Culture - Preliminary Culture in Progress Solis/IV: Voiding Method Urinal Active Medications - Current Medications Current Medications: Generic Name Dose Route Start Last Admin Trade Name Freq PRN Reason Stop Dose Admin Acetaminophen 650 mg 09/03/20 02:56 Tylenol PO Q4H PRN Pain MILD(1-3)/Fever >100.5/ALLEN Heparin Sodium (Porcine) 5,000 unit 09/03/20 10:00 Heparin SUB-Q Q12HR PEACE Hydromorphone HCl 0.5 mg 09/03/20 02:56 09/03/20 04:01 Dilaudid IV 0.5 mg Q3H PRN Administration Pain , Severe (7-10) Sodium Chloride 1,000 mls @ 75 mls/hr 09/03/20 03:00 09/03/20 04:02 Nacl 0.9% 1000 Ml IV 75 mls/hr DIRECT PEACE Administration Ketorolac Tromethamine 15 mg 09/02/20 20:56 09/02/20 21:17 Toradol IM 10/12/20 20:55 15 mg Q6HR PRN Administration Pain Metoclopramide HCl 10 mg 09/03/20 02:56 Reglan IV Q6H PRN Nausea And Vomiting Morphine Sulfate 2 mg 09/03/20 02:56 Morphine IV Q4H PRN Pain, Moderate (4-6) Sodium Chloride 10 ml 09/03/20 10:00 Sodium Chloride Flush Syringe 10 Ml IV BID PEACE Sodium Chloride 10 ml 09/03/20 02:56 Sodium Chloride Flush Syringe 10 Ml IV PRN PRN LINE FLUSH
[2020-09-03] MEDS: HEPARIN 5,000 UNIT/1 ML VIAL SUB-Q SCH ×2 (10:20→20:59)
[2020-09-03] MEDS: MORPHINE 2 MG/1 ML INJ IV PRN (10:32)
--- NOTE | 2020-09-03 11:15 | Consultation ---
History of Present Illness Consult date: 09/03/20 Requesting physician: RORO MCKINNEY Consult reason: other (pericarditis) History of present illness: The pt is a 35-year-old male with a past medical history of HIV/AIDS, methamphetamine abuse, ulcerative colitis and Crohn's disease and possible lymphoma. He is previously unknown to our practice. He presented with c/o fever and left-sided chest pain for 1 week. He describes his chest pain as an intermittent midsternal soreness. Pt also c/o dark stools. He denies any SOB, palpitations, n/v, diaphoresis, dizziness or syncope. Admission labwork significant for H/H 6.2/18.5. Past History Past Medical History: other (as per HPI) Medications and Allergies Allergies Allergy/AdvReac Type Severity Reaction Status Date / Time ondansetron [From Zofran] AdvReac Unknown Verified 01/08/19 02:21 Home Medications Medication Instructions Recorded Confirmed Last Taken Type No Known Home Medications [No 09/02/20 09/02/20 Unknown History Reported Home Medications] Active Meds: Active Medications Acetaminophen (Tylenol) 650 mg PO Q4H PRN PRN Reason: Pain MILD(1-3)/Fever >100.5/ALLEN Heparin Sodium (Porcine) (Heparin) 5,000 unit SUB-Q Q12HR PEACE Last Admin: 09/03/20 10:20 Dose: 5,000 unit Documented by: Hydromorphone HCl (Dilaudid) 0.5 mg IV Q3H PRN PRN Reason: Pain , Severe (7-10) Last Admin: 09/03/20 04:01 Dose: 0.5 mg Documented by: Sodium Chloride (Nacl 0.9% 1000 Ml) 1,000 mls @ 75 mls/hr IV DIRECT PEACE Last Admin: 09/03/20 04:02 Dose: 75 mls/hr Documented by: Ketorolac Tromethamine (Toradol) 15 mg IM Q6HR PRN PRN Reason: Pain Stop: 09/07/20 20:55 Last Admin: 09/02/20 21:17 Dose: 15 mg Documented by: Metoclopramide HCl (Reglan) 10 mg IV Q6H PRN PRN Reason: Nausea And Vomiting Morphine Sulfate (Morphine) 2 mg IV Q4H PRN PRN Reason: Pain, Moderate (4-6) Last Admin: 09/03/20 10:32 Dose: 2 mg Documented by: Sodium Chloride (Sodium Chloride Flush Syringe 10 Ml) 10 ml IV BID PEACE Last Admin: 09/03/20 10:20 Dose: 10 ml Documented by: Sodium Chloride (Sodium Chloride Flush Syringe 10 Ml) 10 ml IV PRN PRN PRN Reason: LINE FLUSH Review of Systems Constitutional: no weight loss, no weight gain, no fever, no chills, no sweats Ears, nose, mouth and throat: no ear pain, no nose pain, no sinus pressure, no sinus pain Cardiovascular: chest pain, no orthopnea, no palpitations, no rapid/irregular heart beat, no edema, no syncope, no lightheadedness, no shortness of breath, no dyspnea on exertion, no high blood pressure Respiratory: no cough, no shortness of breath, no dyspnea on exertion, no c ongestion, no wheezing, no pain on inspiration Gastrointestinal: melena, no abdominal pain, no nausea, no vomiting, no diarrhea, no constipation Genitourinary Male: no dysuria, no hematuria, no flank pain, no discharge, no urinary frequency, no urinary hesitancy Musculoskeletal: no neck stiffness, no neck pain, no shooting arm pain, no arm numbness/tingling, no low back pain, no shooting leg pain Integumentary: no rash, no pruritis, no redness, no sores, no wounds Neurological: no head injury, no paralysis, no weakness, no parathesias, no numbness, no tingling, no seizures, no syncope Psychiatric: no anxiety Endocrine: no cold intolerance, no heat intolerance Hematologic/Lymphatic: no easy bruising Allergic/Immunologic: no urticaria Physical Examination Vital Signs Temp Pulse Resp BP Pulse Ox 99.2 F 98 H 20 102/72 96 09/02/20 12:54 09/02/20 12:54 09/02/20 12:54 09/02/20 12:54 09/02/20 12:54 General appearance: no acute distress HEENT: Positive: PERRL, Normocephaly, Mucus Membranes Moist Neck: Positive: neck supple, trachea midline Cardiac: Positive: Reg Rate and Rhythm, S1/S2 Lungs: Positive: Decreased Breath Sounds Neuro: Positive: Grossly Intact Abdomen: Negative: Tender Skin: Negative: Rash Musculoskeletal: No Pain Extremities: Absent: edema Results 09/03/20 04:39 09/03/20 04:39 Cardiac Enzymes 09/02/20 09/03/20 Range/Units 14:21 04:39 AST 42 H 45 H (5-40) units/L CBC 09/02/20 09/03/20 Range/Units 14:21 04:39 WBC 4.3 L 3.3 L (4.5-11.0) K/mm3 RBC 2.18 L 3.06 L (3.65-5.03) M/mm3 Hgb 6.2 L 8.8 L (11.8-15.2) gm/dl Hct 18.5 L* 25.6 L D (35.5-45.6) % Plt Count 191 228 (140-440) K/mm3 Comprehensive Metabolic Panel 09/02/20 09/03/20 Range/Units 14:21 04:39 Sodium 141 136 L (137-145) mmol/L Potassium 3.7 3.7 (3.6-5.0) mmol/L Chloride 109.8 H 100.9 (98-107) mmol/L Carbon Dioxide 22 22 (22-30) mmol/L BUN 12 10 (9-20) mg/dL Creatinine 0.6 L 0.6 L (0.8-1.3) mg/dL Glucose 79 92 (75-100) mg/dL Calcium 7.4 L 7.7 L (8.4-10.2) mg/dL AST 42 H 45 H (5-40) units/L ALT 43 46 (7-56) units/L Alkaline Phosphatase 176 H 211 H (35-129) units/L Total Protein 6.5 7.0 (6.3-8.2) g/dL Albumin 2.9 L 3.1 L (3.9-5) g/dL - Imaging and Cardiology Echo: pending EKG: report reviewed, image reviewed EKG interpretations - Telemetry EKG Rhythm: Sinus Rhythm - EKG Sinus rhythms and dysrhythmias: sinus rhythm Repolarization changes or abnormalities: early repolarization (normal variant) Assessment and Plan Ned negative for AMI. ECG with NSR, ST changes c/w early repolarization, unchanged from ECG in 2019. Agree with present cardiac management. Obtain echo. Further eval/management of suspected GI bleed and anemia per primary and GI teams. Will follow. The patient has been seen in conjunction with Dr. Blakely who agrees with the assessment and plan of care. - Patient Problems (1) Chest pain Current Visit: Yes Status: Acute Qualifiers: Chest pain type: unspecified Qualified Code(s): R07.9 - Chest pain, unspecified (2) Symptomatic anemia Current Visit: Yes Status: Acute (3) Abnormal ECG Current Visit: Yes Status: Acute (4) GI bleed Current Visit: Yes Status: Acute Qualifiers: GI bleed type/associated pathology: melena Qualified Code(s): K92.1 - Melena (5) HIV (human immunodeficiency virus infection) Current Visit: Yes Status: Chronic Qualifiers: HIV symptom status: unspecified Qualified Code(s): B20 - Human immunodeficiency virus [HIV] disease (6) History of Crohn's disease Current Visit: Yes Status: Chronic
[2020-09-03] MEDS: KETOROLAC 30 MG/1 ML INJ IM PRN (12:48)
[2020-09-03] MEDS: METOCLOPRAMIDE 10 MG/2 ML INJ IV PRN (12:48)
--- NOTE | 2020-09-03 15:46 | Consultation ---
History of Present Illness - Reason for Consult Consult date: 09/03/20 Fever Requesting physician: RORO MCKINNEY - History of Present Illness The patient is a 35-year-old male with HIV/AIDS not on ART, IV methamphetamine abuse, ulcerative colitis, known to us from his previous hospitalization in June 2020. He presented to the emergency room yesterday with complaints of chest pain going on for about 2 weeks. Chest pain has been quite persistent, not positional, not exertional. He felt like he had a low-grade fever as well. On evaluation here, no fever. Chest x-ray did not reveal any pneumonia. EKG showed diffuse ST elevations concerning for acute pericarditis. He also complained of dark stools, labs showed anemia. GI has been consulted. ID was consulted due to fever, h/o HIV. Patient has not gone back to [place] to restart his ART. He used to be on Triumeq but hasn't taken it at least for 2 years. He cannot give me a reason for his noncompliance. For the last 2 weeks, he has also noticed a dry rash on his face, swollen lymph nodes in both his armpits and groin. He is not sexually active. He denies any more IVDU since the last 1 year. Denies smoking or alcohol. He states he lives with his mother. Review of Systems: General: Fever, none here HEENT: no new visual disturbance Respiratory: mild cough, no sputum, hemoptysis or shortness of breath Cardiovascular: + chest pain, no syncope Gastrointestinal: No nausea, vomiting or diarrhea. Reports dark stools Genitourinary: No dysuria or hematuria Musculoskeletal: No new or worsening neck pain or back pain Neurologic: No headaches, seizures Hematologic: No easy bruising or bleeding Endocrine: No night sweats or acute weight loss Skin: Dry scaly rash on face Psychiatric: No suicidal or homicidal ideation Past History Past Medical History: other (as per HPI) Medications and Allergies Allergies Allergy/AdvReac Type Severity Reaction Status Date / Time ondansetron [From Zofran] AdvReac Unknown Verified 01/08/19 02:21 Home Medications Medication Instructions Recorded Confirmed Last Taken Type No Known Home Medications [No 09/02/20 09/02/20 Unknown History Reported Home Medications] Active Meds: Active Medications Acetaminophen (Tylenol) 650 mg PO Q4H PRN PRN Reason: Pain MILD(1-3)/Fever >100.5/ALLEN Heparin Sodium (Porcine) (Heparin) 5,000 unit SUB-Q Q12HR PEACE Last Admin: 09/03/20 10:20 Dose: 5,000 unit Documented by: Hydromorphone HCl (Dilaudid) 0.5 mg IV Q3H PRN PRN Reason: Pain , Severe (7-10) Last Admin: 09/03/20 04:01 Dose: 0.5 mg Documented by: Sodium Chloride (Nacl 0.9% 1000 Ml) 1,000 mls @ 75 mls/hr IV DIRECT PEACE Last Admin: 09/03/20 04:02 Dose: 75 mls/hr Documented by: Fluconazole (Diflucan) 200 mls @ 100 mls/hr IV Q24HR PEACE; Protocol Stop: 09/24/20 15:59 Ketorolac Tromethamine (Toradol) 15 mg IM Q6HR PRN PRN Reason: Pain Stop: 09/07/20 20:55 Last Admin: 09/03/20 12:48 Dose: 15 mg Documented by: Metoclopramide HCl (Reglan) 10 mg IV Q6H PRN PRN Reason: Nausea And Vomiting Last Admin: 09/03/20 12:48 Dose: 10 mg Documented by: Morphine Sulfate (Morphine) 2 mg IV Q4H PRN PRN Reason: Pain, Moderate (4-6) Last Admin: 09/03/20 10:32 Dose: 2 mg Documented by: Sodium Chloride (Sodium Chloride Flush Syringe 10 Ml) 10 ml IV BID PEACE Last Admin: 09/03/20 10:20 Dose: 10 ml Documented by: Sodium Chloride (Sodium Chloride Flush Syringe 10 Ml) 10 ml IV PRN PRN PRN Reason: LINE FLUSH Physical Examination - Physical Exam Narrative exam: Physical Exam: Constitutional: Alert, cooperative. No acute distress Head, Ears, Nose: Normocephalic, atraumatic. External ears, nose normal Eyes: Conjunctivae/corneas clear. No icterus. No ptosis. Neck: Supple, no meningeal signs Oral: Extensive thrush around the uvula and pharynx Cardiovascular: S1, S2 normal. Respiratory: Good air entry, clear to auscultation bilaterally GI: Soft, non-tender; bowel sounds normal. No peritoneal signs Musculoskeletal: No pedal edema, no cyanosis. Skin: Dry scaly rash on face Hem/Lymphatic: Bilateral axillary and groin tender lymphadenopathy Psych: Mood ok. Affect flat Neurological: Awake, alert, oriented. No gross abnormality - Constitutional Vitals: Vital Signs Temp Pulse Resp BP Pulse Ox 98.0 F 96 H 20 107/72 99 09/03/20 11:40 09/03/20 11:40 09/03/20 12:48 09/03/20 11:40 09/03/20 11:40 Temperature -Last 24 Hours Temperature 98.0 F Temperature 98.5 F Results - Labs CBC & Chem 7: 09/03/20 04:39 09/03/20 04:39 Labs: Abnormal lab results 09/02/20 09/03/20 09/03/20 Range/Units 14:21 04:39 04:39 WBC 3.3 L (4.5-11.0) K/mm3 RBC 3.06 L (3.65-5.03) M/mm3 Hgb 8.8 L (11.8-15.2) gm/dl Hct 25.6 L D (35.5-45.6) % MCHC 35 H (32-34) % Monocytes % (Manual) 16.0 H (0.0-7.3) % Eosinophils % (Manual) 7.0 H 19.0 H (0.0-4.3) % Basophils % (Manual) 2.0 H (0.0-1.8) % Seg Neutrophils # Man 1.6 L (1.8-7.7) K/mm3 Lymphocytes # (Manual) 0.8 L (1.2-5.4) K/mm3 Eosinophils # (Manual) 0.6 H (0.0-0.4) K/mm3 Sodium 136 L (137-145) mmol/L Creatinine 0.6 L (0.8-1.3) mg/dL Calcium 7.7 L (8.4-10.2) mg/dL AST 45 H (5-40) units/L Alkaline Phosphatase 211 H (35-129) units/L Albumin 3.1 L (3.9-5) g/dL Crossmatch 09/03/20 Range/Units 04:45 WBC (4.5-11.0) K/mm3 RBC (3.65-5.03) M/mm3 Hgb (11.8-15.2) gm/dl Hct (35.5-45.6) % MCHC (32-34) % Monocytes % (Manual) (0.0-7.3) % Eosinophils % (Manual) (0.0-4.3) % Basophils % (Manual) (0.0-1.8) % Seg Neutrophils # Man (1.8-7.7) K/mm3 Lymphocytes # (Manual) (1.2-5.4) K/mm3 Eosinophils # (Manual) (0.0-0.4) K/mm3 Sodium (137-145) mmol/L Creatinine (0.8-1.3) mg/dL Calcium (8.4-10.2) mg/dL AST (5-40) units/L Alkaline Phosphatase (35-129) units/L Albumin (3.9-5) g/dL Crossmatch See Detail - Imaging and Cardiology Chest x-ray: report reviewed, image reviewed (no pneumonia) Assessment and Plan Cultures: 09/02/2020 blood culture: No growth A/P: 35-year-old male with HIV/AIDS not on ART, IV methamphetamine abuse, ulcerative colitis, known to us from his previous hospitalization in June 2020. He presented to the emergency room with complaints of chest pain going on for about 2 weeks: #Fever, acute pericarditis: Cardiology on board. Follow-up echocardiogram. Infectious v/s inflammatory #HIV/AIDS: Not on ART. Last viral load/HIV PCR in EMR was 622K in 06/2020 with CD4 count of 8 (3%). Originally diagnosed in 2006, has not gone back to [place] to restart his ART. He used to be on Triumeq but hasn't taken it at least for 2 years. He cannot give me a reason for his noncompliance. #Leukopenia: probably from AIDS. Rule out CMV viremia. #Polysubstance abuse: check Utox. Patient reports last use was 1 year ago. #Lymphadenopathy: will obtain CT chest, abdomen and pelvis with IV contrast to evaluate. Infectious v/s malignancy. Patient states a few years ago, in [facility], he was told he had lymphoma, was advised to follow up with an oncologist but never did. #Oropharyngeal candidiasis: severe, treat for possible esophagitis as well. #Cough: CXR without pneumonia, not hypoxic, so PJP less likely, f/u CT chest Recs: AFB blood culture TB QuantiFERON gold ordered Histoplasma urinary antigen Follow-up echocardiogram Serum cryptococcal antigen CMV DNA PCR quantitative recheck HIV RNA PCR, CD4 count, Genotype CT chest, abdomen, pelvis with IV contrast to eval lymphadenopathy Fluconazole 400 mg daily x 3 weeks Guarded prognosis Bassem Caballero MD, FACP [facility], [place] O: [phone] F: [phone]
--- NOTE | 2020-09-03 17:13 | Gastroenterology Consultation ---
History of Present Illness - Reason for Consult Consult date: 09/03/20 melena Requesting physician: RORO MCKINNEY - History of Present Illness This is a 35 yo male with pmh of HIV/AIDS not on ART, substance abuse, and Ulcerative colitis admitted overnight for chest pain and dark stools. Patient reports having chest pain for the past 2 weeks. Noticed dark stools for the past 2-3 days. Last stool this morning was brown. He has on-going low grade fever and felt swollen lymph nodes. Reports intermittent red blood in the stools for the past 1 year. Reports lower abdominal pain. He previously followed with GI clinic at [place] but has not seen them for over 1 year. Has never been on medication for UC. Last colonoscopy 3 years ago. Currently only take ibuprofen for bodyache daily. Denies any smoking or alcohol use. Lives with his mother. Medication list reviewed. Past History Past Medical History: other (as per HPI) Medications and Allergies Allergies Allergy/AdvReac Type Severity Reaction Status Date / Time ondansetron [From Zofran] AdvReac Unknown Verified 01/08/19 02:21 Home Medications Medication Instructions Recorded Confirmed Last Taken Type No Known Home Medications [No 09/02/20 09/02/20 Unknown History Reported Home Medications] Active Meds: Active Medications Acetaminophen (Tylenol) 650 mg PO Q4H PRN PRN Reason: Pain MILD(1-3)/Fever >100.5/ALLEN Heparin Sodium (Porcine) (Heparin) 5,000 unit SUB-Q Q12HR PEACE Last Admin: 09/03/20 10:20 Dose: 5,000 unit Documented by: Hydromorphone HCl (Dilaudid) 0.5 mg IV Q3H PRN PRN Reason: Pain , Severe (7-10) Last Admin: 09/03/20 04:01 Dose: 0.5 mg Documented by: Sodium Chloride (Nacl 0.9% 1000 Ml) 1,000 mls @ 75 mls/hr IV DIRECT PEACE Last Admin: 09/03/20 04:02 Dose: 75 mls/hr Documented by: Fluconazole (Diflucan) 200 mls @ 100 mls/hr IV Q24HR PEACE; Protocol Stop: 09/24/20 15:59 Ketorolac Tromethamine (Toradol) 15 mg IM Q6HR PRN PRN Reason: Pain Stop: 09/07/20 20:55 Last Admin: 09/03/20 12:48 Dose: 15 mg Documented by: Metoclopramide HCl (Reglan) 10 mg IV Q6H PRN PRN Reason: Nausea And Vomiting Last Admin: 09/03/20 12:48 Dose: 10 mg Documented by: Morphine Sulfate (Morphine) 2 mg IV Q4H PRN PRN Reason: Pain, Moderate (4-6) Last Admin: 09/03/20 10:32 Dose: 2 mg Documented by: Sodium Chloride (Sodium Chloride Flush Syringe 10 Ml) 10 ml IV BID PEACE Last Admin: 09/03/20 10:20 Dose: 10 ml Documented by: Sodium Chloride (Sodium Chloride Flush Syringe 10 Ml) 10 ml IV PRN PRN PRN Reason: LINE FLUSH Review of Systems - Review of Systems Constitutional: weight loss, anorexia, fatigue, weakness, poor appetite Cardiovascular: chest pain Gastrointestinal: abdominal pain, nausea, melena, hematochezia, no vomiting Rectal: pain, bleeding Neurological: weakness Psychiatric: anxiety Hematologic/Lymphatic: easy bruising Exam - Constitutional Vital Signs: Temp Pulse Resp BP Pulse Ox 98.0 F 96 H 20 107/72 99 09/03/20 11:40 09/03/20 11:40 09/03/20 12:48 09/03/20 11:40 09/03/20 11:40 General appearance: no acute distress - EENT Eyes: EOM intact ENT: hearing intact - Neck Neck: supple - Respiratory Respiratory effort: normal - Cardiovascular Rhythm: regular Heart Sounds: Present: S1 & S2 - Gastrointestinal General gastrointestinal: Present: soft, non-tender, non-distended - Neurologic Neurological: alert and oriented x3 - Labs CBC & Chem 7: 09/03/20 04:39 09/03/20 04:39 Lab Results: Laboratory Results - last 24 hr 09/02/20 09/02/20 09/02/20 14:21 16:44 Unknown WBC RBC Hgb Hct MCV MCH MCHC RDW Plt Count [place] % (Auto) Eos % (Auto) Baso % (Auto) Add Manual Diff Complete Total Counted 100 Seg Neuts % (Manual) 46.0 Band Neutrophils % 0 Lymphocytes % (Manual) 29.0 Reactive Lymphs % (Man) 0 Monocytes % (Manual) 16.0 H Eosinophils % (Manual) 7.0 H Basophils % (Manual) 2.0 H Metamyelocytes % 0 Myelocytes % 0 Promyelocytes % 0 Blast Cells % 0 Nucleated RBC % Not Reportable Seg Neutrophils # Man 2.0 Band Neutrophils # 0.0 Lymphocytes # (Manual) 1.2 Abs React Lymphs (Man) 0.0 Monocytes # (Manual) 0.7 Eosinophils # (Manual) 0.3 Basophils # (Manual) 0.1 Metamyelocytes # 0.0 Myelocytes # 0.0 Promyelocytes # 0.0 Blast Cells # 0.0 WBC Morphology Not Reportable Hypersegmented Neuts Not Reportable Hyposegmented Neuts Not Reportable Hypogranular Neuts Not Reportable Smudge Cells Not Reportable Toxic Granulation Not Reportable Toxic Vacuolation Not Reportable Dohle Bodies Not Reportable Pelger-Huet Anomaly Not Reportable Leah Rods Not Reportable Platelet Estimate Not Reportable Clumped Platelets Not Reportable Plt Clumps, EDTA Not Reportable Large Platelets Not Reportable Giant Platelets Not Reportable Platelet Satelliting Not Reportable Plt Morphology Comment Not Reportable RBC Morphology Not Reportable Dimorphic RBCs Not Reportable Polychromasia Not Reportable Hypochromasia Not Reportable Poikilocytosis Not Reportable Anisocytosis Few Microcytosis Few Macrocytosis Not Reportable Spherocytes Not Reportable Pappenheimer Bodies Not Reportable Sickle Cells Not Reportable Target Cells Not Reportable Tear Drop Cells Not Reportable Ovalocytes Not Reportable Stomatocytes Helmet Cells Not Reportable [place] Bodies Not Reportable [place] Rings Not Reportable [place] Cells Not Reportable Bite Cells Not Reportable Crenated Cell Not Reportable Elliptocytes Not Reportable Acanthocytes (Spur) Not Reportable Rouleaux Not Reportable Hemoglobin C Crystals Not Reportable Schistocytes Not Reportable Malaria parasites Not Reportable Praveen Bodies Not Reportable Hem Pathologist Commnt No Sodium Potassium Chloride Carbon Dioxide Anion Gap BUN Creatinine Estimated GFR BUN/Creatinine Ratio Glucose Hemoglobin A1c Lactic Acid 1.00 Calcium Total Bilirubin AST ALT Alkaline Phosphatase Troponin T Total Protein Albumin Albumin/Globulin Ratio Urine Color Yellow Urine Turbidity Clear Urine pH 6.0 Ur Specific [place] 1.020 Urine Protein 30 mg/dl Urine Glucose (UA) Neg Urine Ketones Neg Urine Blood Neg Urine Nitrite Neg Urine Bilirubin Neg Urine Urobilinogen 4.0 Ur Leukocyte Esterase Neg Urine WBC (Auto) 3.0 Urine RBC (Auto) 1.0 U Epithel Cells (Auto) < 1.0 Urine Mucus Few Blood Type Antibody Screen Crossmatch 09/03/20 09/03/20 09/03/20 04:39 04:39 04:39 WBC 3.3 L RBC 3.06 L Hgb 8.8 L Hct 25.6 L D MCV 84 MCH 29 MCHC 35 H RDW 14.7 Plt Count 228 [place] % (Auto) Office Machine Embossograph Operator Eos % (Auto) Office Machine Embossograph Operator Baso % (Auto) Office Machine Embossograph Operator Add Manual Diff Complete Total Counted 100 Seg Neuts % (Manual) 48.0 Band Neutrophils % 5.0 Lymphocytes % (Manual) 24.0 Reactive Lymphs % (Man) 0 Monocytes % (Manual) 4.0 Eosinophils % (Manual) 19.0 H Basophils % (Manual) 0 Metamyelocytes % 0 Myelocytes % 0 Promyelocytes % 0 Blast Cells % 0 Nucleated RBC % Not Reportable Seg Neutrophils # Man 1.6 L Band Neutrophils # 0.2 Lymphocytes # (Manual) 0.8 L Abs React Lymphs (Man) 0.0 Monocytes # (Manual) 0.1 Eosinophils # (Manual) 0.6 H Basophils # (Manual) 0.0 Metamyelocytes # 0.0 Myelocytes # 0.0 Promyelocytes # 0.0 Blast Cells # 0.0 WBC Morphology Not Reportable Hypersegmented Neuts Not Reportable Hyposegmented Neuts Not Reportable Hypogranular Neuts Not Reportable Smudge Cells Not Reportable Toxic Granulation Not Reportable Toxic Vacuolation Not Reportable Dohle Bodies Not Reportable Pelger-Huet Anomaly Not Reportable Leah Rods Not Reportable Platelet Estimate Consistent w auto Clumped Platelets Not Reportable Plt Clumps, EDTA Not Reportable Large Platelets Not Reportable Giant Platelets Not Reportable Platelet Satelliting Not Reportable Plt Morphology Comment Not Reportable RBC Morphology Not Reportable Dimorphic RBCs Not Reportable Polychromasia Not Reportable Hypochromasia Not Reportable Poikilocytosis Not Reportable Anisocytosis Few Microcytosis Not Reportable Macrocytosis Not Reportable Spherocytes Not Reportable Pappenheimer Bodies Not Reportable Sickle Cells Not Reportable Target Cells Few Tear Drop Cells Not Reportable Ovalocytes Not Reportable Stomatocytes Few Helmet Cells Not Reportable [place] Bodies Not Reportable [place] Rings Not Reportable [place] Cells Not Reportable Bite Cells Not Reportable Crenated Cell Not Reportable Elliptocytes Not Reportable Acanthocytes (Spur) Not Reportable Rouleaux Not Reportable Hemoglobin C Crystals Not Reportable Schistocytes Not Reportable Malaria parasites Not Reportable Praveen Bodies Not Reportable Hem Pathologist Commnt No Sodium 136 L Potassium 3.7 Chloride 100.9 Carbon Dioxide 22 Anion Gap 17 BUN 10 Creatinine 0.6 L Estimated GFR > 60 BUN/Creatinine Ratio 17 Glucose 92 Hemoglobin A1c 5.4 Lactic Acid Calcium 7.7 L Total Bilirubin 0.30 AST 45 H ALT 46 Alkaline Phosphatase 211 H Troponin T Total Protein 7.0 Albumin 3.1 L Albumin/Globulin Ratio 0.8 Urine Color Urine Turbidity Urine pH Ur Specific [place] Urine Protein Urine Glucose (UA) Urine Ketones Urine Blood Urine Nitrite Urine Bilirubin Urine Urobilinogen Ur Leukocyte Esterase Urine WBC (Auto) Urine RBC (Auto) U Epithel Cells (Auto) Urine Mucus Blood Type Antibody Screen Crossmatch 09/03/20 09/03/20 09/03/20 04:39 04:45 16:07 WBC RBC Hgb Hct MCV MCH MCHC RDW Plt Count [place] % (Auto) Eos % (Auto) Baso % (Auto) Add Manual Diff Total Counted Seg Neuts % (Manual) Band Neutrophils % Lymphocytes % (Manual) Reactive Lymphs % (Man) Monocytes % (Manual) Eosinophils % (Manual) Basophils % (Manual) Metamyelocytes % Myelocytes % Promyelocytes % Blast Cells % Nucleated RBC % Seg Neutrophils # Man Band Neutrophils # Lymphocytes # (Manual) Abs React Lymphs (Man) Monocytes # (Manual) Eosinophils # (Manual) Basophils # (Manual) Metamyelocytes # Myelocytes # Promyelocytes # Blast Cells # WBC Morphology Hypersegmented Neuts Hyposegmented Neuts Hypogranular Neuts Smudge Cells Toxic Granulation Toxic Vacuolation Dohle Bodies Pelger-Huet Anomaly Leah Rods Platelet Estimate Clumped Platelets Plt Clumps, EDTA Large Platelets Giant Platelets Platelet Satelliting Plt Morphology Comment RBC Morphology Dimorphic RBCs Polychromasia Hypochromasia Poikilocytosis Anisocytosis Microcytosis Macrocytosis Spherocytes Pappenheimer Bodies Sickle Cells Target Cells Tear Drop Cells Ovalocytes Stomatocytes Helmet Cells [place] Bodies [place] Rings [place] Cells Bite Cells Crenated Cell Elliptocytes Acanthocytes (Spur) Rouleaux Hemoglobin C Crystals Schistocytes Malaria parasites Praveen Bodies Hem Pathologist Commnt Sodium Potassium Chloride Carbon Dioxide Anion Gap BUN Creatinine Estimated GFR BUN/Creatinine Ratio Glucose Hemoglobin A1c Lactic Acid Calcium Total Bilirubin AST ALT Alkaline Phosphatase Troponin T < 0.010 < 0.010 Total Protein Albumin Albumin/Globulin Ratio Urine Color Urine Turbidity Urine pH Ur Specific [place] Urine Protein Urine Glucose (UA) Urine Ketones Urine Blood Urine Nitrite Urine Bilirubin Urine Urobilinogen Ur Leukocyte Esterase Urine WBC (Auto) Urine RBC (Auto) U Epithel Cells (Auto) Urine Mucus Blood Type A POSITIVE Antibody Screen Negative Crossmatch See Detail Assessment and Plan This is a 35 yo male with pmh of HIV/AIDS not on ART, substance abuse, and Ulcerative colitis admitted overnight for chest pain and dark stools. # Melena # Anemia - ddx including upper GI bleed, PUD, gastritis, infectious process. - patient getting CT chest/abdomen/pelvis for work up for possible lymphoma (per patient, he was diagnosed in the past). Patient also undergoing work up for possible pericarditis. - HD stable. - Hgb at 6.2 to 8. # Chest pain - cardiology on board for work up for possible pericarditis. # HIV/AIDS - noncompliance and no follow up. not on ARV - ID on board. Rec - cont with PPI IV - tentatively plan for EGD tomorrow. Will need to follow up on CT results. - NPO ELLEN.
[2020-09-03] MEDS: FLUCONAZOLE 400 MG 200 ML IV SCH (18:07)
[2020-09-03] MEDS: PANTOPRAZOLE 40 MG INJ IV SCH (20:59)
--- NOTE | 2020-09-03 21:34 | Cat Scan Report ---
CT CHEST, ABDOMEN, AND PELVIS WITH IV CONTRAST INDICATION / CLINICAL INFORMATION: AIDS, lymphadenopathy. TECHNIQUE: Axial CT images were obtained through the chest, abdomen, and pelvis after 100 cc Omnipaque [address] scans at this location are performed using CT dose reduction for ALARA by means of aut omated exposure control. COMPARISON: None available. FINDINGS: HEART: No significant abnormality. THORACIC AORTA: No significant abnormality. MEDIASTINUM and NEREIDA: Mild mucosal thickening involving the mid to distal esophagus. LUNGS: No acute air space or interstitial disease. PLEURA: No significant pleural effusion. No pneumothorax. ADDITIONAL CHEST FINDINGS: None. LIVER: No significant abnormality. GALLBLADDER: No significant abnormality. BILE DUCTS: No significant abnormality. PANCREAS: No significant abnormality. SPLEEN: No significant abnormality. ADRENALS: No significant abnormality. RIGHT KIDNEY / URETER: No significant abnormality. LEFT KIDNEY / URETER: No significant abnormality. STOMACH and SMALL BOWEL: No significant abnormality. COLON: No significant abnormality. Moderate rectal stool burden. APPENDIX: No significant abnormality. PERITONEUM: No free fluid. No free air. No fluid collection. LYMPH NODES: Prominent inguinal lymph nodes are seen bilaterally, the largest on the right measuring 1.1 cm in short axis. AORTA and ARTERIES: No significant abnormality. IVC and VEINS: No significant abnormality. URINARY BLADDER: No significant abnormality. REPRODUCTIVE ORGANS: No significant abnormality. ADDITIONAL FINDINGS: None. SKELETAL SYSTEM: No significant abnormality. No osseous lesion. IMPRESSION: 1. No acute abnormality within the chest, abdomen, or pelvis. 2. Prominent inguinal lymph nodes as described above. 3. Mild because of thickening involving the mid to distal esophagus, likely reflecting chronic gastro esophageal reflux. Signer Name: Glynn Guardado MD Signed: 09/03/2020 9:29 PM Workstation Name: [id number]
[2020-09-03] MEDS: ACETAMINOPHEN 325 MG TAB PO PRN (22:18)
[2020-09-04] MEDS: FLUCONAZOLE 400 MG 200 ML IV SCH (09:02)
[2020-09-04 09:14] LABS: Hematocrit 22.9 % (35.5-45.6); Hemoglobin 8.1 gm/dl (11.8-15.2); Mean Corpuscular HGB Conc 35 % (32-34); Mean Corpuscular Volume 81 fl (84-94); Platelet Count 232 K/mm3 (140-440); Red Blood Count 2.81 M/mm3 (3.65-5.03); Red Cell Distribution Width 14.7 % (13.2-15.2)
[2020-09-04 09:27] LABS: Blood Urea Nitrogen 7 mg/dL (9-20); Calcium 8.3 mg/dL (8.4-10.2); Hemolysis Index 6
[2020-09-04 09:30] LABS: BUN/Creatinine Ratio 10
--- NOTE | 2020-09-04 09:34 | Anesthesia Day of Surgery ---
Anesthesia Day of Surgery - Day of Surgery Patient Examined: Yes Patient H&P Reviewed: Yes Patient is NPO: Yes
--- NOTE | 2020-09-04 09:39 | Anesthesia Consultation ---
Anesthesia Consult and Med Hx Date of service: 09/04/20 - Airway Anesthetic Teeth Evaluation: Poor, Chipped ROM Head & Neck: Adequate Mental/Hyoid Distance: Adequate Mallampati Class: Class II Intubation Access Assessment: Probably Good - Pre-Operative Health Status ASA Pre-Surgery Classification: ASA3 Proposed Anesthetic Plan: MAC - Pulmonary Hx Asthma: No Hx Respiratory Symptoms: Yes SOB: Yes COPD: No Hx Pneumonia: No - Cardiovascular System Hx Angina: Yes (Has some chest pain-pericarditis? ECHO negative for pericardial effusion) - Central Nervous System Hx Seizures: Yes (Not on any meds.) Hx Back Pain: Yes Hx Psychiatric Problems: No - Gastrointestinal Hx Ulcer: Yes (GI bleed; ulcerative colitis) - Endocrine Hx End Stage Renal Disease: No Hx Thyroid Disease: Yes (Hyper in the past) - Hematic Hx Anemia: Yes (Came in Hgb 6.2 ) - Other Systems Hx Substance Use: Yes Hx Cancer: Yes (Lymphoma) - Additional Comments Anesthesia Medical History Comments: The pt is a 35-year-old male with a past medical history of HIV/AIDS, methamphetamine abuse, ulcerative colitis and Crohn's disease and possible lymphoma. He is previously unknown to our practice. He presented with c/o fever and left-sided chest pain for 1 week. He describes his chest pain as an intermittent midsternal soreness. Pt also c/o dark stools. He denies any SOB, palpitations, n/v, diaphoresis, dizziness or syncope. Admission labwork significant for H/H 6.2/18.5.
[2020-09-04] MEDS ORDERED: propofoL 200 MG/20 ML VIAL IV ONE ×2 (09:57→10:23)
[2020-09-04] MEDS ORDERED: LIDOCAINE MPF (2%) 20 MG/1 ML VIAL 5 ML ONE (09:57)
--- NOTE | 2020-09-04 10:00 | Progress Note ---
Assessment and Plan tte reviewed - EF 55-60%, borderline LVH, no pericardial effusion. Ned negative for AMI. ECG with NSR, ST changes c/w early repolarization, unchanged from ECG in 2019. No apparent clinical evidence of acute pericarditis at this time. Currently stable cardiac status. Further eval/management of suspected GI bleed and anemia per primary and GI teams. Nothing further to add from cardiac perspective at this time. Will sign off. Recommend pt follow up in our office with Dr. Blakely within 2 weeks of discharge ([phone]). The patient has been seen in conjunction with Dr. Blakely who agrees with the assessment and plan of care. - Patient Problems (1) Chest pain Current Visit: Yes Status: Acute Qualifiers: Chest pain type: unspecified Qualified Code(s): R07.9 - Chest pain, unspecified (2) Symptomatic anemia Current Visit: Yes Status: Acute (3) Abnormal ECG Current Visit: Yes Status: Acute (4) GI bleed Current Visit: Yes Status: Acute Qualifiers: GI bleed type/associated pathology: melena Qualified Code(s): K92.1 - Melena (5) HIV (human immunodeficiency virus infection) Current Visit: Yes Status: Chronic Qualifiers: HIV symptom status: unspecified Qualified Code(s): B20 - Human immunode ficiency virus [HIV] disease (6) History of Crohn's disease Current Visit: Yes Status: Chronic Subjective Date of service: 09/04/20 Principal diagnosis: anemia Interval history: pt for endoscopy today, no current complaints. tele reviewed - in SR HR 100s with bout of ST noted overnight. Objective Last Vital Signs Temp 98.7 F 09/04/20 05:37 Pulse 91 H 09/04/20 05:37 Resp 18 09/04/20 05:37 BP 100/62 09/04/20 05:37 Pulse Ox 95 09/04/20 05:37 - Physical Examination General: No Apparent Distress HEENT: Positive: PERRL, Normocephaly, Mucus Membranes Moist Neck: Positive: neck supple, trachea midline Cardiac: Positive: Reg Rate and Rhythm, S1/S2 Lungs: Positive: Decreased Breath Sounds Neuro: Positive: Grossly Intact Abdomen: Negative: Tender Skin: Negative: Rash Musculoskeletal: No Pain Extremities: Absent: edema - Labs and Meds CBC 09/04/20 Range/Units 08:56 WBC 2.9 L (4.5-11.0) K/mm3 RBC 2.81 L (3.65-5.03) M/mm3 Hgb 8.1 L (11.8-15.2) gm/dl Hct 22.9 L (35.5-45.6) % Plt Count 232 (140-440) K/mm3 Comprehensive Metabolic Panel 09/04/20 Range/Units 08:56 Sodium 137 (137-145) mmol/L Potassium 3.4 L (3.6-5.0) mmol/L Chloride 100.4 (98-107) mmol/L Carbon Dioxide 21 L (22-30) mmol/L BUN 7 L (9-20) mg/dL Creatinine 0.7 L (0.8-1.3) mg/dL Glucose 84 (75-100) mg/dL Calcium 8.3 L (8.4-10.2) mg/dL - Imaging and Cardiology EKG: report reviewed, image reviewed Echo: pending - EKG Sinus rhythms and dysrhythmias: sinus rhythm Repolarization changes or abnormalities: early repolarization (normal variant)
[2020-09-04 10:22] LABS: Band Neutrophils # (Manual) 0.4 K/mm3; Basophils % (Manual) 0 % (0.0-1.8); Dohle Bodies Few; Hypochromasia 1+; Large Platelets Few; Platelet Estimate Consistent w Auto; Target Cells Few; Total Cells Counted 100
--- NOTE | 2020-09-04 10:43 | Operative Report ---
Operative Report Operative Report: Date:09/04/2020 Pre procedure diagnosis:anemia, melena Post procedure diagnosis:gastritis, erosive esophagitis with esophageal ulcerations Procedure: Esophagogastroduodenoscopy Endoscopist: Carlin Goldberg MD Medications: Per anesthesia- see separate records for details Complications:none Estimated blood loss: None After careful discussion of the nature and purpose of the procedure, details of the technique, risks, benefits and alternatives, the patient gave consent. The patient was placed in the left lateral decubitus position and medicated by anesthesia- see separate records for details. The tip of the olympus video upper scope was passed per orum under direct view through the mouth and into the esophagus, stomach and duodenum. The scope was advanced to the secondportion of the duodenum without difficulty. The second portion of the duodenumwasnormal. The bulb revealed normal findings. The scope was withdrawn back into the stomach and the stomach gently insufflated with air. The antrum revealed erythematous mucosa with nonbleeding erosions. Biopsies obtained. The scope was then retroflexed and partially withdrawn to inspect the proximal stomach. The cardia, fundus and body were normal. The scope was then withdrawn in the forward view. The EG junction was at 40 cm. There was moderate erosive esophagitis with extensive overlying thick exudate material and underlying shallow ulcerations from 25 cm from the incisor to distal esophagus. No active bleeding noted. Multiple biopsies were obtained and brushing obtained. The procedure was well tolerated and the patient was observed in the GI recovery unit. IMPRESSION: 1. Mild antral erythema. 2. Moderate erosive esophagitis with extensive thick overlying exudate material and underlying shallow ulcerations. Biopsies and brushing obtained for pathology. Ddx including shima esophagitis vs viral including CMV vs HSV. 3. Normal duodenum exam. Plan: 1. Resume clear liquid diet. 2. Cont with PPI 3. Monitor H/H. 4. Follow up pathology results. 5. Patient already on treatment for shima. 6. Spoke with Dr. Caballero with ID regarding findings. Carlin Zurita (Annamarie Goldberg MD [facility]
--- NOTE | 2020-09-04 11:49 | Post Anesthesia Evaluation ---
- Post Anesthesia Evaluation Patient Participated: Yes Airway Patent: Yes Stable Respiratory Function: Yes Nausea/Vomiting: No Temp > 96.8F: Yes Pain Manageable: Yes Adequeate Hydration: Yes Anesthesia Complications: No Block Receding Appropriately: Not Applicable Patient on Ventilator: No
[2020-09-04] MEDS: PANTOPRAZOLE 40 MG INJ IV SCH ×2 (12:02→21:04)
[2020-09-04] MEDS: MORPHINE 2 MG/1 ML INJ IV PRN ×2 (12:03→21:13)
[2020-09-04] MEDS: METOCLOPRAMIDE 10 MG/2 ML INJ IV PRN ×2 (12:03→21:13)
[2020-09-04] MEDS: SODIUM CHLORIDE 0.9% 1000 ML 1,000 ML IV SCH (12:23)
[2020-09-04] MEDS: HEPARIN 5,000 UNIT/1 ML VIAL SUB-Q SCH ×2 (12:24→21:04)
--- NOTE | 2020-09-04 13:03 | Progress Note ---
Assessment and Plan Cultures: 09/02/2020 blood culture: No growth A/P: 35-year-old male with HIV/AIDS not on ART, IV methamphetamine abuse, ulcerative colitis, known to us from his previous hospitalization in June 2020. He presented to the emergency room with complaints of chest pain going on for about 2 weeks: #Fever, ?acute pericarditis: Cardiology on board. TTE unremarkable, not consist ent with pericarditis, EKG findings thought to be chronic and early re- polarization. Chest pain probably from severe esophagitis. #HIV/AIDS: Not on ART. Last viral load/HIV PCR in EMR was 622K in 06/2020 with CD4 count of 8 (3%). Originally diagnosed in 2006, has not gone back to [place] to restart his ART. He used to be on Triumeq but hasn't taken it at least for 2 years. He cannot give me a reason for his noncompliance. #Leukopenia: probably from AIDS. Rule out CMV viremia. #Polysubstance abuse: check Utox. Patient reports last use was 1 year ago. #Lymphadenopathy: Patient states a few years ago, in [facility], he was told he had lymphoma, was advised to follow up with an oncologist but never did. CT chest abdomen pelvis here only showed mild inguinal lymphadenopathy, no other concerning findings. ?from untreated HIV in which case it should improve with treatment. Can watch for now, patient denies any weight loss. #Oropharyngeal candidiasis / ulcerative esophagitis: severe, treat for possible esophagitis as well. S/P EGD by GI, discussed findings, "erosive esophagitis with extensive thick overlying exudate material and underlying shallow ulcerations. Biopsies and brushing obtained for pathology. Ddx including shima esophagitis vs viral including CMV vs HSV" #Cough: CXR without pneumonia, not hypoxic, so PJP less likely. Recs: F/U AFB blood culture, TB QuantiFERON gold, Histoplasma urinary antigen, Serum cryptococcal antigen f/u CMV DNA PCR quantitative f/u HIV RNA PCR, CD4 count, Genotype Continue IV Fluconazole 400 mg daily x 3 weeks IV Ganciclovir 5 mg/kg q12 hrs started (empiric coverage for CMV and HSV) F/U EGD biopsies, brushings and immunohistochemical staining Guarded prognosis Bassem Caballero MD, FACP [facility] ([facility] O: [phone] F: [phone] Subjective Date of service: 09/04/20 Principal diagnosis: anemia Interval history: No fever. Had EGD. Chest pain still present. Objective - Exam Narrative Exam: Physical Exam: Constitutional: Alert, cooperative. No acute distress Head, Ears, Nose: Normocephalic, atraumatic. External ears, nose normal Eyes: Conjunctivae/corneas clear. No icterus. No ptosis. Neck: Supple, no meningeal signs Oral: Extensive thrush around the uvula and pharynx Cardiovascular: S1, S2 normal. Respiratory: Good air entry, clear to auscultation bilaterally GI: Soft, non-tender; bowel sounds normal. No peritoneal signs Musculoskeletal: No pedal edema, no cyanosis. Skin: Dry scaly rash on face Hem/Lymphatic: Bilateral axillary and groin tender lymphadenopathy Psych: Mood ok. Affect flat Neurological: Awake, alert, oriented. No gross abnormality - Constitutional Vitals: Vital Signs Temp Pulse Resp BP Pulse Ox 98.1 F 97 H 20 106/70 98 09/04/20 10:33 09/04/20 11:00 09/04/20 12:03 09/04/20 11:00 09/04/20 11:00 Temperature -Last 24 Hours Temperature 98.1 F Temperature 98.8 F Temperature 98.8 F Temperature 98.7 F Temperature 100.7 F Temperature 99.0 F - Labs CBC & Chem 7: 09/04/20 08:56 09/04/20 08:56 Labs: Abnormal lab results 09/04/20 09/04/20 Range/Units 08:56 08:56 WBC 2.9 L (4.5-11.0) K/mm3 RBC 2.81 L (3.65-5.03) M/mm3 Hgb 8.1 L (11.8-15.2) gm/dl Hct 22.9 L (35.5-45.6) % MCV 81 L (84-94) fl MCHC 35 H (32-34) % Eosinophils % (Manual) 5.0 H (0.0-4.3) % Seg Neutrophils # Man 1.7 L (1.8-7.7) K/mm3 Lymphocytes # (Manual) 0.5 L (1.2-5.4) K/mm3 Potassium 3.4 L (3.6-5.0) mmol/L Carbon Dioxide 21 L (22-30) mmol/L BUN 7 L (9-20) mg/dL Creatinine 0.7 L (0.8-1.3) mg/dL Calcium 8.3 L (8.4-10.2) mg/dL
[2020-09-04] MEDS: ACETAMINOPHEN 325 MG TAB PO PRN ×2 (15:09→21:24)
[2020-09-04] MEDS: GANCICLOVIR SODIUM IV SCH ×2 (15:11→22:00)
[2020-09-04] MEDS: SODIUM CHLORIDE 0.9% IV SCH ×2 (15:11→22:00)
[2020-09-04] MEDS: SULFAMETHOXAZOLE/TRIMETHOPRIM 800/160MG DS TAB PO SCH (15:11)
--- NOTE | 2020-09-04 17:00 | Progress Note ---
Assessment and Plan Assessment and plan: --SIRS (systemic inflammatory response syndrome) Current Visit: Yes Status: Acute Plan to address problem: Patient has been having fever for 1 day Afebrile today closely monitor --GI bleed Current Visit: Yes Status: Acute Plan to address problem: Patient has been having dark stools. Possible upper GI bleed hemoglobin is low at 6.2-8.8 s/p EGD; -Mild antral erythema -Moderate erosive esophagitis with shallow ulcerations Biopsies done, possible [place] esophagitis versus viral CMV versus HSV Normal duodenum --Oropharyngeal candidiasis: Ulcerative esophagitis; Current Visit: Yes Status: Acute Plan to address problem: I will continue IV Protonix twice daily IV fluconazole 400 daily x 3 weeks IV ganciclovir, pretreatment for CMV/HSV per ID --Symptomatic /acute versus chronic blood loss anemia Current Visit: Yes Status: Acute Plan to address problem: Hemoglobin 6.2 Improved to 8.8-8.1 Closely monitor H/H, transfuse as needed -- Febrile illness, acute Current Visit: No Status: Acute Plan to address problem: Secondary to an underlying HIV -- Chest pain Current Visit: Yes Status: Acute Plan to address problem: Serial troponins Nonsteroidal anti-inflammatories Differential diagnosis of pericarditis -- HIV (human immunodeficiency virus infection) Current Visit: Yes Status: Chronic Plan to address problem: Management per ID --History of Crohn's disease Current Visit: Yes Status: Chronic Plan to address problem: Not on any medication GI following --DVT prophylaxis Current Visit: No Status: Acute Plan to address problem: On heparin and GI prophylaxis Closely monitor the patient and adjust management as needed Patient is critically ill with multiple medical problems Poor prognosis Consults and recommendations noted and appreciated Plan of care reviewed with the patient and his nurse History Interval history: I have seen and examined the patient at the bedside Patient's chart and medications reviewed Patient feels slightly better Had EGD today erosive esophagitis, biopsied for CMV and HSV Vital signs noted Hospitalist Physical - Constitutional Vitals: Temp Pulse Resp BP Pulse Ox 99.5 F 109 H 18 110/72 100 09/04/20 15:09 09/04/20 15:09 09/04/20 15:09 09/04/20 15:09 09/04/20 15:09 General appearance: Present: no acute distress, cachectic - EENT Eyes: Present: PERRL, EOM intact - Neck Neck: Present: supple, normal ROM - Respiratory Respiratory effort: normal Respiratory: bilateral: diminished, rhonchi, negative: rales, wheezing - Cardiovascular Rhythm: regular Heart Sounds: Present: S1 & S2 - Extremities Extremities: no ischemia, No edema - Abdominal General gastrointestinal: soft, non-tender, non-distended, normal bowel sounds - Integumentary Integumentary: Present: clear, warm - Psychiatric Psychiatric: appropriate mood/affect, cooperative - Neurologic Neurologic: moves all extremities HEART Score - HEART Score Risk factors: No known risk factors Troponin: Troponin T < 0.010 ng/mL (0.00-0.029) 09/03/20 16:07 Troponin: < normal limit - Critical Actions Critical Actions: 4-6 pts:12-16.6% risk of adverse cardiac event. Should be admitted Results - Labs CBC & Chem 7: 09/04/20 08:56 10 08:56 Labs: Laboratory Last Values WBC 2.9 K/mm3 (4.5-11.0) L 09/04/20 08:56 RBC 2.81 M/mm3 (3.65-5.03) L 09/04/20 08:56 Hgb 8.1 gm/dl (11.8-15.2) L 09/04/20 08:56 Hct 22.9 % (35.5-45.6) L 09/04/20 08:56 MCV 81 fl (84-94) L 09/04/20 08:56 MCH 29 pg (28-32) 09/04/20 08:56 MCHC 35 % (32-34) H 09/04/20 08:56 RDW 14.7 % (13.2-15.2) 09/04/20 08:56 Plt Count 232 K/mm3 (140-440) 09/04/20 08:56 [place] % (Auto) Lug Breaker And Wire Puller 09/04/20 08:56 Eos % (Auto) Lug Breaker And Wire Puller 09/03/20 04:39 Baso % (Auto) Lug Breaker And Wire Puller 09/03/20 04:39 Add Manual Diff Complete 09/04/20 08:56 Total Counted 100 09/04/20 08:56 Seg Neuts % (Manual) 57.0 % (40.0-70.0) 09/04/20 08:56 Band Neutrophils % 15.0 % 09/04/20 08:56 Lymphocytes % (Manual) 17.0 % (13.4-35.0) 09/04/20 08:56 Reactive Lymphs % (Man) 0 % 09/04/20 08:56 Monocytes % (Manual) 6.0 % (0.0-7.3) 09/04/20 08:56 Eosinophils % (Manual) 5.0 % (0.0-4.3) H 09/04/20 08:56 Basophils % (Manual) 0 % (0.0-1.8) 09/04/20 08:56 Metamyelocytes % 0 % 09/04/20 08:56 Myelocytes % 0 % 09/04/20 08:56 Promyelocytes % 0 % 09/04/20 08:56 Blast Cells % 0 % 09/04/20 08:56 Nucleated RBC % Not Reportable 09/04/20 08:56 Seg Neutrophils # Man 1.7 K/mm3 (1.8-7.7) L 09/04/20 08:56 Band Neutrophils # 0.4 K/mm3 09/04/20 08:56 Lymphocytes # (Manual) 0.5 K/mm3 (1.2-5.4) L 09/04/20 08:56 Abs React Lymphs (Man) 0.0 K/mm3 09/04/20 08:56 Monocytes # (Manual) 0.2 K/mm3 (0.0-0.8) 09/04/20 08:56 Eosinophils # (Manual) 0.1 K/mm3 (0.0-0.4) 09/04/20 08:56 Basophils # (Manual) 0.0 K/mm3 (0.0-0.1) 09/04/20 08:56 Metamyelocytes # 0.0 K/mm3 09/04/20 08:56 Myelocytes # 0.0 K/mm3 09/04/20 08:56 Promyelocytes # 0.0 K/mm3 09/04/20 08:56 Blast Cells # 0.0 K/mm3 09/04/20 08:56 WBC Morphology Not Reportable 09/04/20 08:56 Hypersegmented Neuts Not Reportable 09/04/20 08:56 Hyposegmented Neuts Not Reportable 09/04/20 08:56 Hypogranular Neuts Not Reportable 09/04/20 08:56 Smudge Cells Not Reportable 09/04/20 08:56 Toxic Granulation Not Reportable 09/04/20 08:56 Toxic Vacuolation Not Reportable 09/04/20 08:56 Dohle Bodies Few 09/04/20 08:56 Pelger-Huet Anomaly Not Reportable 09/04/20 08:56 Leah Rods Not Reportable 09/04/20 08:56 Platelet Estimate Consistent w auto 09/04/20 08:56 Clumped Platelets Not Reportable 09/04/20 08:56 Plt Clumps, EDTA Not Reportable 09/04/20 08:56 Large Platelets Few 09/04/20 08:56 Giant Platelets Not Reportable 09/04/20 08:56 Platelet Satelliting Not Reportable 09/04/20 08:56 Plt Morphology Comment Not Reportable 09/04/20 08:56 RBC Morphology Not Reportable 09/04/20 08:56 Dimorphic RBCs Not Reportable 09/04/20 08:56 Polychromasia Not Reportable 09/04/20 08:56 Hypochromasia 1+ 09/04/20 08:56 Poikilocytosis Not Reportable 09/04/20 08:56 Anisocytosis Not Reportable 09/04/20 08:56 Microcytosis Not Reportable 09/04/20 08:56 Macrocytosis Not Reportable 09/04/20 08:56 Spherocytes Not Reportable 09/04/20 08:56 Pappenheimer Bodies Not Reportable 09/04/20 08:56 Sickle Cells Not Reportable 09/04/20 08:56 Target Cells Few 09/04/20 08:56 Tear Drop Cells Not Reportable 09/04/20 08:56 Ovalocytes Not Reportable 09/04/20 08:56 Stomatocytes Few 09/03/20 04:39 Helmet Cells Not Reportable 09/04/20 08:56 Masters-[place] Bodies Not Reportable 09/04/20 08:56 [place] Rings Not Reportable 09/04/20 08:56 [place] Cells Not Reportable 09/04/20 08:56 Bite Cells Not Reportable 09/04/20 08:56 Crenated Cell Not Reportable 09/04/20 08:56 Elliptocytes Not Reportable 09/04/20 08:56 Acanthocytes (Spur) Not Reportable 09/04/20 08:56 Rouleaux Not Reportable 09/04/20 08:56 Hemoglobin C Crystals Not Reportable 09/04/20 08:56 Schistocytes Not Reportable 09/04/20 08:56 Malaria parasites Not Reportable 09/04/20 08:56 Praveen Bodies Not Reportable 09/04/20 08:56 Hem Pathologist Commnt No 09/04/20 08:56 Sodium 137 mmol/L (137-145) 09/04/20 08:56 Potassium 3.4 mmol/L (3.6-5.0) L 09/04/20 08:56 Chloride 100.4 mmol/L (98-107) 09/04/20 08:56 Carbon Dioxide 21 mmol/L (22-30) L 09/04/20 08:56 Anion Gap 19 mmol/L 09/04/20 08:56 BUN 7 mg/dL (9-20) L 09/04/20 08:56 Creatinine 0.7 mg/dL (0.8-1.3) L 09/04/20 08:56 Estimated GFR > 60 ml/min 09/04/20 08:56 BUN/Creatinine Ratio 10 % 09/04/20 08:56 Glucose 84 mg/dL (75-100) 09/04/20 08:56 Hemoglobin A1c 5.4 % (4-6) 09/03/20 04:39 Lactic Acid 1.00 mmol/L (0.7-2.0) 09/02/20 16:44 Calcium 8.3 mg/dL (8.4-10.2) L 09/04/20 08:56 Total Bilirubin 0.30 mg/dL (0.1-1.2) 09/03/20 04:39 AST 45 units/L (5-40) H 09/03/20 04:39 ALT 46 units/L (7-56) 09/03/20 04:39 Alkaline Phosphatase 211 units/L (35-129) H 09/03/20 04:39 Troponin T < 0.010 ng/mL (0.00-0.029) 09/03/20 16:07 Total Protein 7.0 g/dL (6.3-8.2) 09/03/20 04:39 Albumin 3.1 g/dL (3.9-5) L 09/03/20 04:39 Albumin/Globulin Ratio 0.8 % 09/03/20 04:39 Urine Color Yellow (Yellow) 09/02/20 Unknown Urine Turbidity Clear (Clear) 09/02/20 Unknown Urine pH 6.0 (5.0-7.0) 09/02/20 Unknown Ur Specific [place] 1.020 (1.003-1.030) 09/02/20 Unknown Urine Protein 30 mg/dl mg/dL (Negative) 09/02/20 Unknown Urine Glucose (UA) Neg mg/dL (Negative) 09/02/20 Unknown Urine Ketones Neg mg/dL (Negative) 09/02/20 Unknown Urine Blood Neg (Negative) 09/02/20 Unknown Urine Nitrite Neg (Negative) 09/02/20 Unknown Urine Bilirubin Neg (Negative) 09/02/20 Unknown Urine Urobilinogen 4.0 mg/dL (<2.0) 09/02/20 Unknown Ur Leukocyte Esterase Neg (Negative) 09/02/20 Unknown Urine WBC (Auto) 3.0 /HPF (0.0-6.0) 09/02/20 Unknown Urine RBC (Auto) 1.0 /HPF (0.0-6.0) 09/02/20 Unknown U Epithel Cells (Auto) < 1.0 /HPF (0-13.0) 09/02/20 Unknown Urine Mucus Few /HPF 09/02/20 Unknown Nasal Screen MRSA (PCR) Negative (Negative) 09/03/20 16:15 Blood Type A POSITIVE 09/03/20 04:45 Antibody Screen Negative 09/03/20 04:45 Crossmatch See Detail 09/03/20 04:45 Microbiology: Microbiology 09/02/20 14:21 Peripheral/Venous Blood Culture - Preliminary NO GROWTH AFTER 48 HOURS 09/02/20 14:25 Peripheral/Venous Blood Culture - Preliminary NO GROWTH AFTER 48 HOURS 09/03/20 Unknown Serum Cryptococcal Antigen - Final - Diagnostic Impressions Diagnostic Impressions: Echocardiogram 09/03/20 03:02 Transthoracic Echocardiogram Indication: Chest pain BP: 104/65 HR: 99 Conclusions *EF 55-60% *BORDERLINE LVH * " DILITATION OF ASCENDING AORTA Findings Left Ventricle: The left ventricular chamber size is normal. Global left ventricular wall motion and contractility are within normal limits. Global left ventricular systolic function is normal. The estimated ejection fraction is 55-60%. Left Atrium: The left atrial chamber size is normal. Right Ventricle: The right ventricular cavity size is normal. Right Atrium: The right atrial cavity size is normal. Aortic Valve: The aortic valve leaflets are mildly thickened. There is no evidence of aortic regurgitation. Mitral Valve: The mitral valve leaflets are mildly thickened. There is trace of mitral regurgitation. Tricuspid Valve: The tricuspid valve leaflets are normal. There is trace tricuspid regurgitation. Pulmonic Valve: The pulmonic valve appears normal. Pericardium: There is no pericardial effusion. Aorta: The aorta appears normal. Venous: The inferior vena cava appears normal. Measurements Chambers 2D Name Value Normal Range IVSd (2D) 0.97 cm (0.6 - 1.1) LVPWd (2D) 0.92 cm (0.6 - 1.1) LVIDd (2D) 4.82 cm (3.7 - 5.6) LVIDs (2D) 3.72 cm (2 - 3.8) LV FS (2D) 22.74 % - EF Teichholz (2D) 45.64 % - Ao root diameter (2D) 3.28 cm (2 - 3.7) Volumes/Mass Name Value Normal Range LA ESV SP 4CH (A/L) 16.99 ml - LA ESV SP 2CH (A/L) 26.74 ml - LA ESV BP (A/L) 21.5 ml - LA ESV BP (A/L) index 11.69 ml/m2 - LA ESV SP 4CH (MOD) 14.97 ml - LA ESV SP 2CH (MOD) 26.16 ml - LA ESV BP (MOD) 19.6 ml - LA ESV BP (MOD) index 10.65 ml/m2 - Diastolic/Systolic Function Name Value Normal Range MV E-wave Vmax 0.76 m/sec - MV deceleration time 201.48 msec - MV A-wave Vmax 0.59 m/sec - MV E:A ratio 1.29 ratio - Aortic Valve Name Value Normal Range AV Vmax 1.46 m/sec - AV VTI 24.66 cm - AV peak gradient 8.49 mmHg - AV mean gradient 5.25 mmHg - LVOT diameter 2.1 cm - LVOT Vmax 1.17 m/sec - LVOT VTI 19.28 cm - LVOT peak gradient 5.44 mmHg - LVOT mean gradient 3.38 mmHg - SV LVOT 66.49 ml - KOLE (continuity Vmax) 2.76 cm2 - KOLE (continuity VTI) 2.7 cm2 - Pulmonic Valve/Qp:Qs Name Value Normal Range PV Vmax 0.86 m/sec - PV peak gradient 2.98 mmHg - PV acceleration time 110.37 msec - Solis/IV: Voiding Method Toilet Active Medications - Current Medications Current Medications: Generic Name Dose Route Start Last Admin Trade Name Freq PRN Reason Stop Dose Admin Acetaminophen 650 mg 09/03/20 02:56 09/04/20 15:09 Tylenol PO 650 mg Q4H PRN Administration Pain MILD(1-3)/Fever >100.5/ALLEN Heparin Sodium (Porcine) 5,000 unit 09/03/20 10:00 09/04/20 12:24 Heparin SUB-Q 5,000 unit Q12HR PEACE Administration Hydromorphone HCl 0.5 mg 09/03/20 02:56 09/03/20 21:43 Dilaudid IV 0.5 mg Q3H PRN Administration Pain , Severe (7-10) Fluconazole 200 mls @ 100 mls/hr 09/03/20 16:00 09/04/20 09:02 Diflucan IV 09/24/20 15:59 100 mls/hr Q24HR PEACE Administration Protocol Sodium Chloride 1,000 mls @ 50 mls/hr 09/04/20 10:00 09/04/20 12:23 Nacl 0.9% 1000 Ml IV 50 mls/hr DIRECT PEACE Administration Ganciclovir Sodium 350 mg/ 250 mls @ 100 mls/hr 09/04/20 14:00 09/04/20 15:11 Sodium Chloride IV 100 mls/hr Q12HR PEACE Administration Ketorolac Tromethamine 15 mg 09/02/20 20:56 09/03/20 12:48 Toradol IM 09/07/20 20:55 15 mg Q6HR PRN Administration Pain Metoclopramide HCl 10 mg 09/03/20 02:56 09/04/20 12:03 Reglan IV 10 mg Q6H PRN Administration Nausea And Vomiting Morphine Sulfate 2 mg 09/03/20 02:56 10/09/20 12:03 Morphine IV 2 mg Q4H PRN Administration Pain, Moderate (4-6) Pantoprazole Sodium 40 mg 09/03/20 22:00 09/04/20 12:02 Protonix IV 40 mg BID PEACE Administration Sodium Chloride 10 ml 09/03/20 10:00 09/04/20 12:03 Sodium Chloride Flush Syringe 10 Ml IV 10 ml BID PEACE Administration Sodium Chloride 10 ml 09/03/20 02:56 Sodium Chloride Flush Syringe 10 Ml IV PRN PRN LINE FLUSH Trimethoprim/Sulfamethoxazole 1 each 09/04/20 14:00 09/04/20 15:11 Bactrim Ds PO 1 each DAILY PEACE Administration
[2020-09-04] MEDS: HYDROmorphone 1 MG/1 ML INJ IV PRN (18:16)
[2020-09-05] MEDS: HYDROmorphone 1 MG/1 ML INJ IV PRN (07:46)
[2020-09-05] MEDS: MORPHINE 2 MG/1 ML INJ IV PRN ×4 (07:53→20:17)
[2020-09-05] MEDS: ACETAMINOPHEN 325 MG TAB PO PRN ×4 (07:58→20:16)
[2020-09-05] MEDS: METOCLOPRAMIDE 10 MG/2 ML INJ IV PRN ×2 (08:25→20:55)
[2020-09-05] MEDS: HEPARIN 5,000 UNIT/1 ML VIAL SUB-Q SCH ×2 (09:15→21:00)
[2020-09-05] MEDS: PANTOPRAZOLE 40 MG INJ IV SCH ×2 (09:15→21:00)
[2020-09-05] MEDS: SULFAMETHOXAZOLE/TRIMETHOPRIM 800/160MG DS TAB PO SCH (09:15)
--- NOTE | 2020-09-05 09:20 | Gastroenterology Progress Note ---
Assessment and Plan 1. Odynophagia/chest pain 2. HIV/AIDS 3. Anemia/melena - stable H/H without signs of overt gi bleeding EGD with severe esophagitis with ulcerations suggestive of infectious etiology especially in setting of IC state. f/u path from endoscopy. ID following and on empiric tx for shima, cmv and hsv. cont clears/diet as tolerated. will sign off, please call as needed. Subjective Date of service: 09/05/20 Principal diagnosis: anemia Interval history: pt with continued odynophagia/chest/abd pain with oral intake. no overt gi bleeding Objective - Constitutional Vitals: Temp Pulse Resp BP Pulse Ox 98.4 F 88 17 94/56 98 09/05/20 04:46 09/05/20 04:46 09/05/20 04:46 09/05/20 04:46 09/05/20 04:46 General appearance: no acute distress - Respiratory Respiratory effort: normal Respiratory: bilateral: CTA - Cardiovascular Rhythm: regular Heart Sounds: Present: S1 & S2 - Gastrointestinal General gastrointestinal: Present: soft, non-tender, non-distended - Labs CBC & Chem 7: 09/04/20 08:56 09/04/20 08:56 Labs: Laboratory Results - last 24 hr 09/03/20 09/04/20 09/04/20 04:45 08:56 08:56 Add Manual Diff Complete Total Counted 100 Seg Neuts % (Manual) 57.0 Band Neutrophils % 15.0 Lymphocytes % (Manual) 17.0 Reactive Lymphs % (Man) 0 Monocytes % (Manual) 6.0 Eosinophils % (Manual) 5.0 H Basophils % (Manual) 0 Metamyelocytes % 0 Myelocytes % 0 Promyelocytes % 0 Blast Cells % 0 Nucleated RBC % Not Reportable Seg Neutrophils # Man 1.7 L Band Neutrophils # 0.4 Lymphocytes # (Manual) 0.5 L Abs React Lymphs (Man) 0.0 Monocytes # (Manual) 0.2 Eosinophils # (Manual) 0.1 Basophils # (Manual) 0.0 Metamyelocytes # 0.0 Myelocytes # 0.0 Promyelocytes # 0.0 Blast Cells # 0.0 WBC Morphology Not Reportable Hypersegmented Neuts Not Reportable Hyposegmented Neuts Not Reportable Hypogranular Neuts Not Reportable Smudge Cells Not Reportable Toxic Granulation Not Reportable Toxic Vacuolation Not Reportable Dohle Bodies Few Pelger-Huet Anomaly Not Reportable Leah Rods Not Reportable Platelet Estimate Consistent w auto Clumped Platelets Not Reportable Plt Clumps, EDTA Not Reportable Large Platelets Few Giant Platelets Not Reportable Platelet Satelliting Not Reportable Plt Morphology Comment Not Reportable RBC Morphology Not Reportable Dimorphic RBCs Not Reportable Polychromasia Not Reportable Hypochromasia 1+ Poikilocytosis Not Reportable Anisocytosis Not Reportable Microcytosis Not Reportable Macrocytosis Not Reportable Spherocytes Not Reportable Pappenheimer Bodies Not Reportable Sickle Cells Not Reportable Target Cells Few Tear Drop Cells Not Reportable Ovalocytes Not Reportable Helmet Cells Not Reportable [place] Bodies Not Reportable [place] Rings Not Reportable [place] Cells Not Reportable Bite Cells Not Reportable Crenated Cell Not Reportable Elliptocytes Not Reportable Acanthocytes (Spur) Not Reportable Rouleaux Not Reportable Hemoglobin C Crystals Not Reportable Schistocytes Not Reportable Malaria parasites Not Reportable Praveen Bodies Not Reportable Hem Pathologist Commnt No Sodium 137 Potassium 3.4 L Chloride 100.4 Carbon Dioxide 21 L Anion Gap 19 BUN 7 L Creatinine 0.7 L Estimated GFR > 60 BUN/Creatinine Ratio 10 Glucose 84 Calcium 8.3 L Crossmatch See Detail
[2020-09-05] MEDS: FLUCONAZOLE 400 MG 200 ML IV SCH (09:23)
--- NOTE | 2020-09-05 09:40 | Progress Note ---
Assessment and Plan Assessment and plan: --SIRS (systemic inflammatory response syndrome) Current Visit: Yes Status: Acute Plan to address problem: Patient has been having fever for 1 day Afebrile today closely monitor --GI bleed Current Visit: Yes Status: Acute Plan to address problem: Patient has been having dark stools. Possible upper GI bleed hemoglobin is low at 6.2-8.8 s/p EGD; -Mild antral erythema -Moderate erosive esophagitis with shallow ulcerations Biopsies done, possible [place] esophagitis versus viral CMV versus HSV Normal duodenum --Oropharyngeal candidiasis: Ulcerative esophagitis; Current Visit: Yes Status: Acute Plan to address problem: I will continue IV Protonix twice daily IV fluconazole 400 daily x 3 weeks IV ganciclovir, pretreatment for CMV/HSV per ID --Symptomatic /acute versus chronic blood loss anemia Current Visit: Yes Status: Acute Plan to address problem: Hemoglobin 6.2 Improved to 8.8-8.1 Closely monitor H/H, transfuse as needed -- Febrile illness, acute Current Visit: No Status: Acute Plan to address problem: Secondary to an underlying HIV -- Chest pain Current Visit: Yes Status: Acute Plan to address problem: Serial troponins Nonsteroidal anti-inflammatories Differential diagnosis of pericarditis -- HIV (human immunodeficiency virus infection) Current Visit: Yes Status: Chronic Plan to address problem: Management per ID --History of Crohn's disease Current Visit: Yes Status: Chronic Plan to address problem: Not on any medication GI following --DVT prophylaxis Current Visit: No Status: Acute Plan to address problem: On heparin and GI prophylaxis Closely monitor the patient and adjust management as needed Patient is critically ill with multiple medical problems Poor prognosis Consults and recommendations noted and appreciated Plan of care reviewed with the patient and his nurse History Interval history: I have seen and examined the patient at the bedside this morning Patient's chart and medications reviewed Patient complains of some pain asked for more pain medications Vital signs noted Hospitalist Physical - Constitutional Vitals: Temp Pulse Resp BP Pulse Ox 98.4 F 88 17 94/56 98 09/05/20 04:46 09/05/20 04:46 09/05/20 04:46 09/05/20 04:46 09/05/20 04:46 General appearance: Present: no acute distress, cachectic - EENT Eyes: Present: PERRL, EOM intact - Neck Neck: Present: supple, normal ROM - Respiratory Respiratory effort: normal Respiratory: bilateral: diminished, rhonchi, negative: rales, wheezing - Cardiovascular Rhythm: regular Heart Sounds: Present: S1 & S2 - Extremities Extremities: no ischemia, No edema - Abdominal General gastrointestinal: soft, non-tender, non-distended, normal bowel sounds - Integumentary Integumentary: Present: clear, warm - Psychiatric Psychiatric: appropriate mood/affect, cooperative - Neurologic Neurologic: moves all extremities HEART Score - HEART Score Risk factors: No known risk factors Troponin: Troponin T < 0.010 ng/mL (0.00-0.029) 09/03/20 16:07 Troponin: < normal limit - Critical Actions Critical Actions: 4-6 pts:12-16.6% risk of adverse cardiac event. Should be admitted Results - Labs CBC & Chem 7: 09/04/20 08:56 09/04/20 08:56 Labs: Laboratory Last Values WBC 2.9 K/mm3 (4.5-11.0) L 09/04/20 08:56 RBC 2.81 M/mm3 (3.65-5.03) L 09/04/20 08:56 Hgb 8.1 gm/dl (11.8-15.2) L 09/04/20 08:56 Hct 22.9 % (35.5-45.6) L 09/04/20 08:56 MCV 81 fl (84-94) L 09/04/20 08:56 MCH 29 pg (28-32) 09/04/20 08:56 MCHC 35 % (32-34) H 09/04/20 08:56 RDW 14.7 % (13.2-15.2) 09/04/20 08:56 Plt Count 232 K/mm3 (140-440) 09/04/20 08:56 Schleicher % (Auto) Pool Hand 09/04/20 08:56 Eos % (Auto) Pool Hand 09/03/20 04:39 Baso % (Auto) Pool Hand 09/03/20 04:39 Add Manual Diff Complete 09/04/20 08:56 Total Counted 100 09/04/20 08:56 Seg Neuts % (Manual) 57.0 % (40.0-70.0) 09/04/20 08:56 Band Neutrophils % 15.0 % 09/04/20 08:56 Lymphocytes % (Manual) 17.0 % (13.4-35.0) 09/04/20 08:56 Reactive Lymphs % (Man) 0 % 09/04/20 08:56 Monocytes % (Manual) 6.0 % (0.0-7.3) 09/04/20 08:56 Eosinophils % (Manual) 5.0 % (0.0-4.3) H 09/04/20 08:56 Basophils % (Manual) 0 % (0.0-1.8) 09/04/20 08:56 Metamyelocytes % 0 % 09/04/20 08:56 Myelocytes % 0 % 09/04/20 08:56 Promyelocytes % 0 % 09/04/20 08:56 Blast Cells % 0 % 09/04/20 08:56 Nucleated RBC % Not Reportable 09/04/20 08:56 Seg Neutrophils # Man 1.7 K/mm3 (1.8-7.7) L 09/04/20 08:56 Band Neutrophils # 0.4 K/mm3 09/04/20 08:56 Lymphocytes # (Manual) 0.5 K/mm3 (1.2-5.4) L 09/04/20 08:56 Abs React Lymphs (Man) 0.0 K/mm3 09/04/20 08:56 Monocytes # (Manual) 0.2 K/mm3 (0.0-0.8) 09/04/20 08:56 Eosinophils # (Manual) 0.1 K/mm3 (0.0-0.4) 09/04/20 08:56 Basophils # (Manual) 0.0 K/mm3 (0.0-0.1) 09/04/20 08:56 Metamyelocytes # 0.0 K/mm3 09/04/20 08:56 Myelocytes # 0.0 K/mm3 09/04/20 08:56 Promyelocytes # 0.0 K/mm3 09/04/20 08:56 Blast Cells # 0.0 K/mm3 09/04/20 08:56 WBC Morphology Not Reportable 09/04/20 08:56 Hypersegmented Neuts Not Reportable 09/04/20 08:56 Hyposegmented Neuts Not Reportable 09/04/20 08:56 Hypogranular Neuts Not Reportable 09/04/20 08:56 Smudge Cells Not Reportable 09/04/20 08:56 Toxic Granulation Not Reportable 09/04/20 08:56 Toxic Vacuolation Not Reportable 09/04/20 08:56 Dohle Bodies Few 09/04/20 08:56 Pelger-Huet Anomaly Not Reportable 09/04/20 08:56 Leah Rods Not Reportable 09/04/20 08:56 Platelet Estimate Consistent w auto 09/04/20 08:56 Clumped Platelets Not Reportable 09/04/20 08:56 Plt Clumps, EDTA Not Reportable 09/04/20 08:56 Large Platelets Few 09/04/20 08:56 Giant Platelets Not Reportable 09/04/20 08:56 Platelet Satelliting Not Reportable 09/04/20 08:56 Plt Morphology Comment Not Reportable 09/04/20 08:56 RBC Morphology Not Reportable 09/04/20 08:56 Dimorphic RBCs Not Reportable 09/04/20 08:56 Polychromasia Not Reportable 09/04/20 08:56 Hypochromasia 1+ 09/04/20 08:56 Poikilocytosis Not Reportable 09/04/20 08:56 Anisocytosis Not Reportable 09/04/20 08:56 Microcytosis Not Reportable 09/04/20 08:56 Macrocytosis Not Reportable 09/04/20 08:56 Spherocytes Not Reportable 09/04/20 08:56 Pappenheimer Bodies Not Reportable 09/04/20 08:56 Sickle Cells Not Reportable 09/04/20 08:56 Target Cells Few 09/04/20 08:56 Tear Drop Cells Not Reportable 09/04/20 08:56 Ovalocytes Not Reportable 09/04/20 08:56 Stomatocytes Few 09/03/20 04:39 Helmet Cells Not Reportable 09/04/20 08:56 Masters-Dennison Bodies Not Reportable 09/04/20 08:56 [place] Rings Not Reportable 09/04/20 08:56 Potter Cells Not Reportable 09/04/20 08:56 Bite Cells Not Reportable 09/04/20 08:56 Crenated Cell Not Reportable 09/04/20 08:56 Elliptocytes Not Reportable 09/04/20 08:56 Acanthocytes (Spur) Not Reportable 09/04/20 08:56 Rouleaux Not Reportable 09/04/20 08:56 Hemoglobin C Crystals Not Reportable 09/04/20 08:56 Schistocytes Not Reportable 09/04/20 08:56 Malaria parasites Not Reportable 09/04/20 08:56 Praveen Bodies Not Reportable 09/04/20 08:56 Hem Pathologist Commnt No 09/04/20 08:56 Sodium 137 mmol/L (137-145) 09/04/20 08:56 Potassium 3.4 mmol/L (3.6-5.0) L 09/04/20 08:56 Chloride 100.4 mmol/L (98-107) 09/04/20 08:56 Carbon Dioxide 21 mmol/L (22-30) L 09/04/20 08:56 Anion Gap 19 mmol/L 09/04/20 08:56 BUN 7 mg/dL (9-20) L 09/04/20 08:56 Creatinine 0.7 mg/dL (0.8-1.3) L 09/04/20 08:56 Estimated GFR > 60 ml/min 09/04/20 08:56 BUN/Creatinine Ratio 10 % 09/04/20 08:56 Glucose 84 mg/dL (75-100) 09/04/20 08:56 Hemoglobin A1c 5.4 % (4-6) 09/03/20 04:39 Lactic Acid 1.00 mmol/L (0.7-2.0) 09/02/20 16:44 Calcium 8.3 mg/dL (8.4-10.2) L 09/04/20 08:56 Total Bilirubin 0.30 mg/dL (0.1-1.2) 09/03/20 04:39 AST 45 units/L (5-40) H 09/03/20 04:39 ALT 46 units/L (7-56) 09/03/20 04:39 Alkaline Phosphatase 211 units/L (35-129) H 09/03/20 04:39 Troponin T < 0.010 ng/mL (0.00-0.029) 09/03/20 16:07 Total Protein 7.0 g/dL (6.3-8.2) 09/03/20 04:39 Albumin 3.1 g/dL (3.9-5) L 09/03/20 04:39 Albumin/Globulin Ratio 0.8 % 09/03/20 04:39 Urine Color Yellow (Yellow) 09/02/20 Unknown Urine Turbidity Clear (Clear) 09/02/20 Unknown Urine pH 6.0 (5.0-7.0) 09/02/20 Unknown Ur Specific [place] 1.020 (1.003-1.030) 09/02/20 Unknown Urine Protein 30 mg/dl mg/dL (Negative) 09/02/20 Unknown Urine Glucose (UA) Neg mg/dL (Negative) 09/02/20 Unknown Urine Ketones Neg mg/dL (Negative) 09/02/20 Unknown Urine Blood Neg (Negative) 09/02/20 Unknown Urine Nitrite Neg (Negative) 09/02/20 Unknown Urine Bilirubin Neg (Negative) 09/02/20 Unknown Urine Urobilinogen 4.0 mg/dL (<2.0) 09/02/20 Unknown Ur Leukocyte Esterase Neg (Negative) 09/02/20 Unknown Urine WBC (Auto) 3.0 /HPF (0.0-6.0) 09/02/20 Unknown Urine RBC (Auto) 1.0 /HPF (0.0-6.0) 09/02/20 Unknown U Epithel Cells (Auto) < 1.0 /HPF (0-13.0) 09/02/20 Unknown Urine Mucus Few /HPF 09/02/20 Unknown Nasal Screen MRSA (PCR) Negative (Negative) 09/03/20 16:15 Blood Type A POSITIVE 09/03/20 04:45 Antibody Screen Negative 09/03/20 04:45 Crossmatch See Detail 09/03/20 04:45 Microbiology: Microbiology 09/02/20 14:21 Peripheral/Venous Blood Culture - Preliminary NO GROWTH AFTER 48 HOURS 09/02/20 14:25 Peripheral/Venous Blood Culture - Preliminary NO GROWTH AFTER 48 HOURS 09/03/20 Unknown Serum Cryptococcal Antigen - Final - Diagnostic Impressions Diagnostic Impressions: Echocardiogram 09/03/20 03:02 Transthoracic Echocardiogram Indication: Chest pain BP: 104/65 HR: 99 Conclusions *EF 55-60% *BORDERLINE LVH * " DILITATION OF ASCENDING AORTA Findings Left Ventricle: The left ventricular chamber size is normal. Global left ventricular wall motion and contractility are within normal limits. Global left ventricular systolic function is normal. The estimated ejection fraction is 55-60%. Left Atrium: The left atrial chamber size is normal. Right Ventricle: The right ventricular cavity size is normal. Right Atrium: The right atrial cavity size is normal. Aortic Valve: The aortic valve leaflets are mildly thickened. There is no evidence of aortic regurgitation. Mitral Valve: The mitral valve leaflets are mildly thickened. There is trace of mitral regurgitation. Tricuspid Valve: The tricuspid valve leaflets are normal. There is trace tricuspid regurgitation. Pulmonic Valve: The pulmonic valve appears normal. Pericardium: There is no pericardial effusion. Aorta: The aorta appears normal. Venous: The inferior vena cava appears normal. Measurements Chambers 2D Name Value Normal Range IVSd (2D) 0.97 cm (0.6 - 1.1) LVPWd (2D) 0.92 cm (0.6 - 1.1) LVIDd (2D) 4.82 cm (3.7 - 5.6) LVIDs (2D) 3.72 cm (2 - 3.8) LV FS (2D) 22.74 % - EF Teichholz (2D) 45.64 % - Ao root diameter (2D) 3.28 cm (2 - 3.7) Volumes/Mass Name Value Normal Range LA ESV SP 4CH (A/L) 16.99 ml - LA ESV SP 2CH (A/L) 26.74 ml - LA ESV BP (A/L) 21.5 ml - LA ESV BP (A/L) index 11.69 ml/m2 - LA ESV SP 4CH (MOD) 14.97 ml - LA ESV SP 2CH (MOD) 26.16 ml - LA ESV BP (MOD) 19.6 ml - LA ESV BP (MOD) index 10.65 ml/m2 - Diastolic/Systolic Function Name Value Normal Range MV E-wave Vmax 0.76 m/sec - MV deceleration time 201.48 msec - MV A-wave Vmax 0.59 m/sec - MV E:A ratio 1.29 ratio - Aortic Valve Name Value Normal Range AV Vmax 1.46 m/sec - AV VTI 24.66 cm - AV peak gradient 8.49 mmHg - AV mean gradient 5.25 mmHg - LVOT diameter 2.1 cm - LVOT Vmax 1.17 m/sec - LVOT VTI 19.28 cm - LVOT peak gradient 5.44 mmHg - LVOT mean gradient 3.38 mmHg - SV LVOT 66.49 ml - KOLE (continuity Vmax) 2.76 cm2 - KOLE (continuity VTI) 2.7 cm2 - Pulmonic Valve/Qp:Qs Name Value Normal Range PV Vmax 0.86 m/sec - PV peak gradient 2.98 mmHg - PV acceleration time 110.37 msec - Solis/IV: Voiding Method Diaper IV Catheter Type [Right Peripheral IV Forearm] Active Medications - Current Medications Current Medications: Generic Name Dose Route Start Last Admin Trade Name Freq PRN Reason Stop Dose Admin Acetaminophen 650 mg 09/03/20 02:56 09/05/20 07:58 Tylenol PO 650 mg Q4H PRN Administration Pain MILD(1-3)/Fever >100.5/ALLEN Heparin Sodium (Porcine) 5,000 unit 09/03/20 10:00 09/05/20 09:15 Heparin SUB-Q 5,000 unit Q12HR PEACE Administration Hydromorphone HCl 0.5 mg 09/03/20 02:56 09/04/20 18:16 Dilaudid IV 0.5 mg Q3H PRN Administration Pain , Severe (7-10) Fluconazole 200 mls @ 100 mls/hr 09/03/20 16:00 09/05/20 09:23 Diflucan IV 09/24/20 15:59 100 mls/hr Q24HR PEACE Administration Protocol Sodium Chloride 1,000 mls @ 50 mls/hr 09/04/20 10:00 09/04/20 12:23 Nacl 0.9% 1000 Ml IV 50 mls/hr DIRECT PEACE Administration Ganciclovir Sodium 350 mg/ 250 mls @ 100 mls/hr 09/04/20 14:00 09/04/20 22:00 Sodium Chloride IV 100 mls/hr Q12HR PEACE Administration Ketorolac Tromethamine 15 mg 09/02/20 20:56 09/03/20 12:48 Toradol IM 09/07/20 20:55 15 mg Q6HR PRN Administration Pain Metoclopramide HCl 10 mg 09/03/20 02:56 09/05/20 08:25 Reglan IV 10 mg Q6H PRN Administration Nausea And Vomiting Morphine Sulfate 2 mg 09/03/20 02:56 10/10/20 07:53 Morphine IV 2 mg Q4H PRN Administration Pain, Moderate (4-6) Pantoprazole Sodium 40 mg 09/03/20 22:00 09/05/20 09:15 Protonix IV 40 mg BID PEACE Administration Sodium Chloride 10 ml 09/03/20 10:00 09/04/20 12:03 Sodium Chloride Flush Syringe 10 Ml IV 10 ml BID PEACE Administration Sodium Chloride 10 ml 09/03/20 02:56 Sodium Chloride Flush Syringe 10 Ml IV PRN PRN LINE FLUSH Trimethoprim/Sulfamethoxazole 1 each 09/04/20 14:00 09/05/20 09:15 Bactrim Ds PO 1 each DAILY PEACE Administration
[2020-09-05] MEDS: GANCICLOVIR SODIUM IV SCH ×2 (12:08→21:01)
[2020-09-05] MEDS: SODIUM CHLORIDE 0.9% IV SCH ×2 (12:08→21:01)
[2020-09-06] MEDS: MORPHINE 2 MG/1 ML INJ IV PRN ×5 (02:15→22:30)
[2020-09-06] MEDS: SODIUM CHLORIDE 0.9% 1000 ML 1,000 ML IV SCH (02:19)
[2020-09-06] MEDS: ACETAMINOPHEN 325 MG TAB PO PRN ×4 (04:19→20:02)
[2020-09-06 06:20] LABS: Hematocrit 25.5 % (35.5-45.6); Hemoglobin 8.6 gm/dl (11.8-15.2); Mean Corpuscular HGB Conc 34 % (32-34); Mean Corpuscular Volume 83 fl (84-94); Platelet Count 262 K/mm3 (140-440); Red Blood Count 3.07 M/mm3 (3.65-5.03); Red Cell Distribution Width 14.5 % (13.2-15.2)
[2020-09-06 06:27] LABS: Blood Urea Nitrogen 6 mg/dL (9-20); Calcium 8.3 mg/dL (8.4-10.2); Hemolysis Index 16
[2020-09-06 06:36] LABS: BUN/Creatinine Ratio 9
[2020-09-06 07:23] LABS: Anisocytosis 1+; Band Neutrophils # (Manual) 0.3 K/mm3; Basophils % (Manual) 0 % (0.0-1.8); Platelet Estimate Consistent w Auto; Target Cells 1+; Total Cells Counted 100
[2020-09-06] MEDS: FLUCONAZOLE 400 MG 200 ML IV SCH (09:34)
[2020-09-06] MEDS: HEPARIN 5,000 UNIT/1 ML VIAL SUB-Q SCH ×2 (09:36→22:32)
[2020-09-06] MEDS: PANTOPRAZOLE 40 MG INJ IV SCH ×2 (09:36→22:32)
[2020-09-06] MEDS: SULFAMETHOXAZOLE/TRIMETHOPRIM 800/160MG DS TAB PO SCH (09:36)
[2020-09-06] MEDS ORDERED: POTASSIUM CHLORIDE ER 20 MEQ TAB PO ONE (11:07)
--- NOTE | 2020-09-06 11:14 | Progress Note ---
Assessment and Plan Assessment and plan: --Hypokalemia; Current Visit: Yes Status: Acute Plan to address problem: Replenish with oral KCl follow electrolytes -Hyponatremia; Current Visit: Yes Status: Acute Plan to address problem: Gentle hydration, monitor electrolytes --SIRS (systemic inflammatory response syndrome) Current Visit: Yes Status: Acute Plan to address problem: Patient has been having fever for 1 day. Afebrile today closely monitor --GI bleed Current Visit: Yes Status: Acute Plan to address problem: Patient has been having dark stools. Possible upper GI bleed hemoglobin is low at 6.2-8.8 s/p EGD; -Mild antral erythema -Moderate erosive esophagitis with shallow ulcerations Biopsies done, possible [place] esophagitis versus viral CMV versus HSV Normal duodenum --Oropharyngeal candidiasis: Ulcerative esophagitis; Current Visit: Yes Status: Acute Plan to address problem: I will continue IV Protonix twice daily IV fluconazole 400 daily x 3 weeks IV ganciclovir, pretreatment for CMV/HSV per ID --Symptomatic /acute versus chronic blood loss anemia Current Visit: Yes Status: Acute Plan to address problem: Hemoglobin 6.2 Improved to 8.8-8.1 Closely monitor H/H, transfuse as needed -- Febrile illness, acute Current Visit: No Status: Acute Plan to address problem: Secondary to an underlying HIV -- Chest pain Current Visit: Yes Status: Acute Plan to address problem: Serial troponins Nonsteroidal anti-inflammatories Differential diagnosis of pericarditis -- HIV (human immunodeficiency virus infection) Current Visit: Yes Status: Chronic Plan to address problem: Management per ID --History of Crohn's disease Current Visit: Yes Status: Chronic Plan to address problem: Not on any medication GI following --DVT prophylaxis Current Visit: No Status: Acute Plan to address problem: On heparin and GI prophylaxis Closely monitor the patient and adjust management as needed Patient is critically ill with multiple medical problems Poor prognosis Consults and recommendations noted and appreciated Plan of care reviewed with the patient and his nurse 09/06; hypokalemia corrected with KCl, hyponatremia, gentle hydration with normal saline Monitor electrolytes, patient is on ganciclovir and IV Diflucan for total 3 weeks per ID History Interval history: I have seen and examined the patient at the bedside this morning Patient's chart and medications reviewed Patient feels better, mild hypokalemia and hyponatremia on labs Vital signs noted Hospitalist Physical - Constitutional Vitals: Temp Pulse Resp BP Pulse Ox 99.1 F 99 H 18 118/75 98 09/06/20 04:14 09/06/20 04:15 09/06/20 04:14 09/06/20 04:14 09/06/20 04:15 General appearance: Present: no acute distress, cachectic - EENT Eyes: Present: PERRL, EOM intact - Neck Neck: Present: supple, normal ROM - Respiratory Respiratory effort: normal Respiratory: bilateral: diminished, rales, rhonchi, negative: wheezing - Cardiovascular Rhythm: regular Heart Sounds: Present: S1 & S2 - Extremities Extremities: no ischemia, No edema - Abdominal General gastrointestinal: soft, non-tender, non-distended, normal bowel sounds - Integumentary Integumentary: Present: clear, warm - Psychiatric Psychiatric: appropriate mood/affect - Neurologic Neurologic: moves all extremities HEART Score - HEART Score Risk factors: No known risk factors Troponin: Troponin T < 0.010 ng/mL (0.00-0.029) 09/03/20 16:07 Troponin: < normal limit - Critical Actions Critical Actions: 4-6 pts:12-16.6% risk of adverse cardiac event. Should be admitted Results - Labs CBC & Chem 7: 09/06/20 05:04 09/06/20 05:04 Labs: Laboratory Last Values WBC 3.3 K/mm3 (4.5-11.0) L 09/06/20 05:04 RBC 3.07 M/mm3 (3.65-5.03) L 09/06/20 05:04 Hgb 8.6 gm/dl (11.8-15.2) L 09/06/20 05:04 Hct 25.5 % (35.5-45.6) L 09/06/20 05:04 MCV 83 fl (84-94) L 09/06/20 05:04 MCH 28 pg (28-32) 09/06/20 05:04 MCHC 34 % (32-34) 09/06/20 05:04 RDW 14.5 % (13.2-15.2) 09/06/20 05:04 Plt Count 262 K/mm3 (140-440) 09/06/20 05:04 [place] % (Auto) Chrome Cleaner 09/06/20 05:04 Eos % (Auto) Chrome Cleaner 09/03/20 04:39 Baso % (Auto) Chrome Cleaner 09/03/20 04:39 Add Manual Diff Complete 09/06/20 05:04 Total Counted 100 09/06/20 05:04 Seg Neuts % (Manual) 51.0 % (40.0-70.0) 09/06/20 05:04 Band Neutrophils % 8.0 % 09/06/20 05:04 Lymphocytes % (Manual) 19.0 % (13.4-35.0) 09/06/20 05:04 Reactive Lymphs % (Man) 0 % 09/06/20 05:04 Monocytes % (Manual) 18.0 % (0.0-7.3) H 09/06/20 05:04 Eosinophils % (Manual) 4.0 % (0.0-4.3) 09/06/20 05:04 Basophils % (Manual) 0 % (0.0-1.8) 09/06/20 05:04 Metamyelocytes % 0 % 09/06/20 05:04 Myelocytes % 0 % 09/06/20 05:04 Promyelocytes % 0 % 09/06/20 05:04 Blast Cells % 0 % 09/06/20 05:04 Nucleated RBC % Not Reportable 09/06/20 05:04 Seg Neutrophils # Man 1.7 K/mm3 (1.8-7.7) L 09/06/20 05:04 Band Neutrophils # 0.3 K/mm3 09/06/20 05:04 Lymphocytes # (Manual) 0.6 K/mm3 (1.2-5.4) L 09/06/20 05:04 Abs React Lymphs (Man) 0.0 K/mm3 09/06/20 05:04 Monocytes # (Manual) 0.6 K/mm3 (0.0-0.8) 09/06/20 05:04 Eosinophils # (Manual) 0.1 K/mm3 (0.0-0.4) 09/06/20 05:04 Basophils # (Manual) 0.0 K/mm3 (0.0-0.1) 09/06/20 05:04 Metamyelocytes # 0.0 K/mm3 09/06/20 05:04 Myelocytes # 0.0 K/mm3 09/06/20 05:04 Promyelocytes # 0.0 K/mm3 09/06/20 05:04 Blast Cells # 0.0 K/mm3 09/06/20 05:04 WBC Morphology Not Reportable 09/06/20 05:04 Hypersegmented Neuts Not Reportable 09/06/20 05:04 Hyposegmented Neuts Not Reportable 09/06/20 05:04 Hypogranular Neuts Not Reportable 09/06/20 05:04 Smudge Cells Not Reportable 09/06/20 05:04 Toxic Granulation Not Reportable 09/06/20 05:04 Toxic Vacuolation Not Reportable 09/06/20 05:04 Dohle Bodies Not Reportable 09/06/20 05:04 Pelger-Huet Anomaly Not Reportable 09/06/20 05:04 Leah Rods Not Reportable 09/06/20 05:04 Platelet Estimate Consistent w auto 09/06/20 05:04 Clumped Platelets Not Reportable 09/06/20 05:04 Plt Clumps, EDTA Not Reportable 09/06/20 05:04 Large Platelets Not Reportable 09/06/20 05:04 Giant Platelets Not Reportable 09/06/20 05:04 Platelet Satelliting Not Reportable 09/06/20 05:04 Plt Morphology Comment Not Reportable 09/06/20 05:04 RBC Morphology Not Reportable 09/06/20 05:04 Dimorphic RBCs Not Reportable 09/06/20 05:04 Polychromasia Not Reportable 09/06/20 05:04 Hypochromasia Not Reportable 09/06/20 05:04 Poikilocytosis Not Reportable 09/06/20 05:04 Anisocytosis 1+ 09/06/20 05:04 Microcytosis Not Reportable 09/06/20 05:04 Macrocytosis Not Reportable 09/06/20 05:04 Spherocytes Not Reportable 09/06/20 05:04 Pappenheimer Bodies Not Reportable 09/06/20 05:04 Sickle Cells Not Reportable 09/06/20 05:04 Target Cells 1+ 09/06/20 05:04 Tear Drop Cells Not Reportable 09/06/20 05:04 Ovalocytes Not Reportable 09/06/20 05:04 Stomatocytes Few 09/03/20 04:39 Helmet Cells Not Reportable 09/06/20 05:04 [place] Bodies Not Reportable 09/06/20 05:04 [place] Rings Not Reportable 09/06/20 05:04 [place] Cells Not Reportable 09/06/20 05:04 Bite Cells Not Reportable 09/06/20 05:04 Crenated Cell Not Reportable 09/06/20 05:04 Elliptocytes Not Reportable 09/06/20 05:04 Acanthocytes (Spur) Not Reportable 09/06/20 05:04 Rouleaux Not Reportable 09/06/20 05:04 Hemoglobin C Crystals Not Reportable 09/06/20 05:04 Schistocytes Not Reportable 09/06/20 05:04 Malaria parasites Not Reportable 09/06/20 05:04 Praveen Bodies Not Reportable 09/06/20 05:04 Hem Pathologist Commnt No 09/06/20 05:04 Sodium 132 mmol/L (137-145) L 09/06/20 05:04 Potassium 3.3 mmol/L (3.6-5.0) L 09/06/20 05:04 Chloride 96.4 mmol/L (98-107) L 09/06/20 05:04 Carbon Dioxide 22 mmol/L (22-30) 09/06/20 05:04 Anion Gap 17 mmol/L 09/06/20 05:04 BUN 6 mg/dL (9-20) L 09/06/20 05:04 Creatinine 0.7 mg/dL (0.8-1.3) L 09/06/20 05:04 Estimated GFR > 60 ml/min 09/06/20 05:04 BUN/Creatinine Ratio 9 % 09/06/20 05:04 Glucose 84 mg/dL (75-100) 09/06/20 05:04 Hemoglobin A1c 5.4 % (4-6) 09/03/20 04:39 Lactic Acid 1.00 mmol/L (0.7-2.0) 09/02/20 16:44 Calcium 8.3 mg/dL (8.4-10.2) L 09/06/20 05:04 Total Bilirubin 0.30 mg/dL (0.1-1.2) 09/03/20 04:39 AST 45 units/L (5-40) H 09/03/20 04:39 ALT 46 units/L (7-56) 09/03/20 04:39 Alkaline Phosphatase 211 units/L (35-129) H 09/03/20 04:39 Troponin T < 0.010 ng/mL (0.00-0.029) 09/03/20 16:07 Total Protein 7.0 g/dL (6.3-8.2) 09/03/20 04:39 Albumin 3.1 g/dL (3.9-5) L 09/03/20 04:39 Albumin/Globulin Ratio 0.8 % 09/03/20 04:39 Urine Color Yellow (Yellow) 09/02/20 Unknown Urine Turbidity Clear (Clear) 09/02/20 Unknown Urine pH 6.0 (5.0-7.0) 09/02/20 Unknown Ur Specific [place] 1.020 (1.003-1.030) 09/02/20 Unknown Urine Protein 30 mg/dl mg/dL (Negative) 09/02/20 Unknown Urine Glucose (UA) Neg mg/dL (Negative) 09/02/20 Unknown Urine Ketones Neg mg/dL (Negative) 09/02/20 Unknown Urine Blood Neg (Negative) 09/02/20 Unknown Urine Nitrite Neg (Negative) 09/02/20 Unknown Urine Bilirubin Neg (Negative) 09/02/20 Unknown Urine Urobilinogen 4.0 mg/dL (<2.0) 09/02/20 Unknown Ur Leukocyte Esterase Neg (Negative) 09/02/20 Unknown Urine WBC (Auto) 3.0 /HPF (0.0-6.0) 09/02/20 Unknown Urine RBC (Auto) 1.0 /HPF (0.0-6.0) 09/02/20 Unknown U Epithel Cells (Auto) < 1.0 /HPF (0-13.0) 09/02/20 Unknown Urine Mucus Few /HPF 09/02/20 Unknown Nasal Screen MRSA (PCR) Negative (Negative) 09/03/20 16:15 Blood Type A POSITIVE 09/03/20 04:45 Antibody Screen Negative 09/03/20 04:45 Crossmatch See Detail 09/03/20 04:45 Microbiology: Microbiology 09/02/20 14:25 Peripheral/Venous Blood Culture - Preliminary NO GROWTH AFTER 72 HOURS 09/02/20 14:21 Peripheral/Venous Blood Culture - Preliminary NO GROWTH AFTER 72 HOURS - Diagnostic Impressions Diagnostic Impressions: Echocardiogram 09/03/20 03:02 Transthoracic Echocardiogram Indication: Chest pain BP: 104/65 HR: 99 Conclusions *EF 55-60% *BORDERLINE LVH * " DILITATION OF ASCENDING AORTA Findings Left Ventricle: The left ventricular chamber size is normal. Global left ventricular wall motion and contractility are within normal limits. Global left ventricular systolic function is normal. The estimated ejection fraction is 55-60%. Left Atrium: The left atrial chamber size is normal. Right Ventricle: The right ventricular cavity size is normal. Right Atrium: The right atrial cavity size is normal. Aortic Valve: The aortic valve leaflets are mildly thickened. There is no evidence of aortic regurgitation. Mitral Valve: The mitral valve leaflets are mildly thickened. There is trace of mitral regurgitation. Tricuspid Valve: The tricuspid valve leaflets are normal. There is trace tricuspid regurgitation. Pulmonic Valve: The pulmonic valve appears normal. Pericardium: There is no pericardial effusion. Aorta: The aorta appears normal. Venous: The inferior vena cava appears normal. Measurements Chambers 2D Name Value Normal Range IVSd (2D) 0.97 cm (0.6 - 1.1) LVPWd (2D) 0.92 cm (0.6 - 1.1) LVIDd (2D) 4.82 cm (3.7 - 5.6) LVIDs (2D) 3.72 cm (2 - 3.8) LV FS (2D) 22.74 % - EF Teichholz (2D) 45.64 % - Ao root diameter (2D) 3.28 cm (2 - 3.7) Volumes/Mass Name Value Normal Range LA ESV SP 4CH (A/L) 16.99 ml - LA ESV SP 2CH (A/L) 26.74 ml - LA ESV BP (A/L) 21.5 ml - LA ESV BP (A/L) index 11.69 ml/m2 - LA ESV SP 4CH (MOD) 14.97 ml - LA ESV SP 2CH (MOD) 26.16 ml - LA ESV BP (MOD) 19.6 ml - LA ESV BP (MOD) index 10.65 ml/m2 - Diastolic/Systolic Function Name Value Normal Range MV E-wave Vmax 0.76 m/sec - MV deceleration time 201.48 msec - MV A-wave Vmax 0.59 m/sec - MV E:A ratio 1.29 ratio - Aortic Valve Name Value Normal Range AV Vmax 1.46 m/sec - AV VTI 24.66 cm - AV peak gradient 8.49 mmHg - AV mean gradient 5.25 mmHg - LVOT diameter 2.1 cm - LVOT Vmax 1.17 m/sec - LVOT VTI 19.28 cm - LVOT peak gradient 5.44 mmHg - LVOT mean gradient 3.38 mmHg - SV LVOT 66.49 ml - KOLE (continuity Vmax) 2.76 cm2 - KOLE (continuity VTI) 2.7 cm2 - Pulmonic Valve/Qp:Qs Name Value Normal Range PV Vmax 0.86 m/sec - PV peak gradient 2.98 mmHg - PV acceleration time 110.37 msec - Solis/IV: Voiding Method Urinal IV Catheter Type [Right Peripheral IV Forearm] Active Medications - Current Medications Current Medications: Generic Name Dose Route Start Last Admin Trade Name Freq PRN Reason Stop Dose Admin Acetaminophen 650 mg 09/03/20 02:56 09/06/20 08:29 Tylenol PO 650 mg Q4H PRN Administration Pain MILD(1-3)/Fever >100.5/ALLEN Heparin Sodium (Porcine) 5,000 unit 09/03/20 10:00 09/06/20 09:36 Heparin SUB-Q 5,000 unit Q12HR PEACE Administration Hydromorphone HCl 0.5 mg 09/03/20 02:56 09/04/20 18:16 Dilaudid IV 0.5 mg Q3H PRN Administration Pain , Severe (7-10) Fluconazole 200 mls @ 100 mls/hr 09/03/20 16:00 09/06/20 09:34 Diflucan IV 09/24/20 15:59 100 mls/hr Q24HR PEACE Administration Protocol Sodium Chloride 1,000 mls @ 100 mls/hr 09/04/20 10:00 09/06/20 02:19 Nacl 0.9% 1000 Ml IV 50 mls/hr DIRECT PEACE Administration Ganciclovir Sodium 350 mg/ 250 mls @ 100 mls/hr 09/04/20 14:00 09/05/20 21:01 Sodium Chloride IV 100 mls/hr Q12HR PEACE Administration Ketorolac Tromethamine 15 mg 09/02/20 20:56 09/03/20 12:48 Toradol IM 09/07/20 20:55 15 mg Q6HR PRN Administration Pain Metoclopramide HCl 10 mg 09/03/20 02:56 09/05/20 20:55 Reglan IV 10 mg Q6H PRN Administration Nausea And Vomiting Morphine Sulfate 2 mg 09/03/20 02:56 09/06/20 08:29 Morphine IV 2 mg Q4H PRN Administration Pain, Moderate (4-6) Pantoprazole Sodium 40 mg 09/03/20 22:00 09/06/20 09:36 Protonix IV 40 mg BID PEACE Administration Potassium Chloride 40 meq 09/06/20 11:07 K-Dur PO 09/06/20 11:08 ONCE ONE Sodium Chloride 10 ml 09/03/20 10:00 09/05/20 21:12 Sodium Chloride Flush Syringe 10 Ml IV 10 ml BID PEACE Administration Sodium Chloride 10 ml 09/03/20 02:56 Sodium Chloride Flush Syringe 10 Ml IV PRN PRN LINE FLUSH Trimethoprim/Sulfamethoxazole 1 each 09/04/20 14:00 09/06/20 09:36 Bactrim Ds PO 1 each DAILY PEACE Administration
[2020-09-06] MEDS: SODIUM CHLORIDE 0.9% IV SCH ×2 (11:36→22:31)
[2020-09-06] MEDS: GANCICLOVIR SODIUM IV SCH ×2 (11:36→22:31)
[2020-09-06] MEDS: METOCLOPRAMIDE 10 MG/2 ML INJ IV PRN (18:09)
[2020-09-07] MEDS: SODIUM CHLORIDE 0.9% 1000 ML 1,000 ML IV SCH ×2 (01:39→22:36)
[2020-09-07] MEDS: ACETAMINOPHEN 325 MG TAB PO PRN ×3 (01:56→11:38)
[2020-09-07] MEDS: MORPHINE 2 MG/1 ML INJ IV PRN ×3 (04:33→19:33)
[2020-09-07] MEDS: KETOROLAC 30 MG/1 ML INJ IM PRN ×2 (07:36→17:26)
--- NOTE | 2020-09-07 08:27 | Progress Note ---
Assessment and Plan Assessment and plan: --Hypokalemia; Current Visit: Yes Status: Acute Plan to address problem: Replenish with oral KCl follow electrolytes -Hyponatremia; Current Visit: Yes Status: Acute Plan to address problem: Gentle hydration, monitor electrolytes --SIRS (systemic inflammatory response syndrome) Current Visit: Yes Status: Acute Plan to address problem: Patient has been having fever for 1 day. Afebrile today closely monitor --GI bleed Current Visit: Yes Status: Acute Plan to address problem: Patient has been having dark stools. Possible upper GI bleed hemoglobin is low at 6.2-8.8 s/p EGD; -Mild antral erythema -Moderate erosive esophagitis with shallow ulcerations Biopsies done, possible [place] esophagitis versus viral CMV versus HSV Normal duodenum --Oropharyngeal candidiasis: Ulcerative esophagitis; Current Visit: Yes Status: Acute Plan to address problem: I will continue IV Protonix twice daily IV fluconazole 400 daily x 3 weeks IV ganciclovir, pretreatment for CMV/HSV per ID --Symptomatic /acute versus chronic blood loss anemia Current Visit: Yes Status: Acute Plan to address problem: Hemoglobin 6.2 Improved to 8.8-8.1 Closely monitor H/H, transfuse as needed -- Febrile illness, acute Current Visit: No Status: Acute Plan to address problem: Secondary to an underlying HIV -- Chest pain/noncardiac, probably secondary to GERD Current Visit: Yes Status: Acute Plan to address problem: Elevated by cardiology Noncardiac chest pain Probably secondary to GERD,Protonix No evidence of pericarditis -- HIV/AIDS Current Visit: Yes Status: Chronic Plan to address problem: Management per ID --History of Crohn's disease Current Visit: Yes Status: Chronic Plan to address problem: Not on any medication GI following --DVT prophylaxis Current Visit: No Status: Acute Plan to address problem: On heparin and GI prophylaxis Closely monitor the patient and adjust management as needed Patient is critically ill with multiple medical problems Poor prognosis Consults and recommendations noted and appreciated Plan of care reviewed with the patient and his nurse 09/06; hypokalemia corrected with KCl, hyponatremia, gentle hydration with normal saline Monitor electrolytes, patient is on ganciclovir and IV Diflucan for total 3 weeks per ID 09/07; patient feels slightly better, receiving ganciclovir and Diflucan, for total 3 weeks Check with case management, discharge planning ID following History Interval history: I have seen and examined the patient at the bedside Patient's chart and medications reviewed Patient feels slightly better No new complaints Vital signs noted Hospitalist Physical - Constitutional Vitals: Temp Pulse Resp BP Pulse Ox 98.8 F 87 18 96/55 99 09/07/20 04:21 09/07/20 04:21 09/07/20 05:03 09/07/20 04:21 09/07/20 04:21 General appearance: Present: no acute distress, cachectic - EENT Eyes: Present: PERRL, EOM intact - Neck Neck: Present: supple, normal ROM - Respiratory Respiratory effort: normal Respiratory: bilateral: diminished, negative: rales, rhonchi, wheezing - Cardiovascular Rhythm: regular Heart Sounds: Present: S1 & S2 - Extremities Extremities: no ischemia, No edema - Abdominal General gastrointestinal: soft, non-tender, non-distended, normal bowel sounds - Integumentary Integumentary: Present: clear, warm - Psychiatric Psychiatric: appropriate mood/affect, cooperative - Neurologic Neurologic: moves all extremities HEART Score - HEART Score Risk factors: No known risk factors Troponin: Troponin T < 0.010 ng/mL (0.00-0.029) 09/03/20 16:07 Troponin: < normal limit - Critical Actions Critical Actions: 4-6 pts:12-16.6% risk of adverse cardiac event. Should be admitted Results - Labs CBC & Chem 7: 09/06/20 05:04 09/06/20 05:04 Labs: Laboratory Last Values WBC 3.3 K/mm3 (4.5-11.0) L 09/06/20 05:04 RBC 3.07 M/mm3 (3.65-5.03) L 09/06/20 05:04 Hgb 8.6 gm/dl (11.8-15.2) L 09/06/20 05:04 Hct 25.5 % (35.5-45.6) L 09/06/20 05:04 MCV 83 fl (84-94) L 09/06/20 05:04 MCH 28 pg (28-32) 09/06/20 05:04 MCHC 34 % (32-34) 09/06/20 05:04 RDW 14.5 % (13.2-15.2) 09/06/20 05:04 Plt Count 262 K/mm3 (140-440) 09/06/20 05:04 Butts % (Auto) Director Video 09/06/20 05:04 Eos % (Auto) Director Video 09/03/20 04:39 Baso % (Auto) Director Video 09/03/20 04:39 Add Manual Diff Complete 09/06/20 05:04 Total Counted 100 09/06/20 05:04 Seg Neuts % (Manual) 51.0 % (40.0-70.0) 09/06/20 05:04 Band Neutrophils % 8.0 % 09/06/20 05:04 Lymphocytes % (Manual) 19.0 % (13.4-35.0) 09/06/20 05:04 Reactive Lymphs % (Man) 0 % 09/06/20 05:04 Monocytes % (Manual) 18.0 % (0.0-7.3) H 09/06/20 05:04 Eosinophils % (Manual) 4.0 % (0.0-4.3) 09/06/20 05:04 Basophils % (Manual) 0 % (0.0-1.8) 09/06/20 05:04 Metamyelocytes % 0 % 09/06/20 05:04 Myelocytes % 0 % 09/06/20 05:04 Promyelocytes % 0 % 09/06/20 05:04 Blast Cells % 0 % 09/06/20 05:04 Nucleated RBC % Not Reportable 09/06/20 05:04 Seg Neutrophils # Man 1.7 K/mm3 (1.8-7.7) L 09/06/20 05:04 Band Neutrophils # 0.3 K/mm3 09/06/20 05:04 Lymphocytes # (Manual) 0.6 K/mm3 (1.2-5.4) L 09/06/20 05:04 Abs React Lymphs (Man) 0.0 K/mm3 09/06/20 05:04 Monocytes # (Manual) 0.6 K/mm3 (0.0-0.8) 09/06/20 05:04 Eosinophils # (Manual) 0.1 K/mm3 (0.0-0.4) 09/06/20 05:04 Basophils # (Manual) 0.0 K/mm3 (0.0-0.1) 09/06/20 05:04 Metamyelocytes # 0.0 K/mm3 09/06/20 05:04 Myelocytes # 0.0 K/mm3 09/06/20 05:04 Promyelocytes # 0.0 K/mm3 09/06/20 05:04 Blast Cells # 0.0 K/mm3 09/06/20 05:04 WBC Morphology Not Reportable 09/06/20 05:04 Hypersegmented Neuts Not Reportable 09/06/20 05:04 Hyposegmented Neuts Not Reportable 09/06/20 05:04 Hypogranular Neuts Not Reportable 09/06/20 05:04 Smudge Cells Not Reportable 09/06/20 05:04 Toxic Granulation Not Reportable 09/06/20 05:04 Toxic Vacuolation Not Reportable 09/06/20 05:04 Dohle Bodies Not Reportable 09/06/20 05:04 Pelger-Huet Anomaly Not Reportable 09/06/20 05:04 Leah Rods Not Reportable 09/06/20 05:04 Platelet Estimate Consistent w auto 09/06/20 05:04 Clumped Platelets Not Reportable 09/06/20 05:04 Plt Clumps, EDTA Not Reportable 09/06/20 05:04 Large Platelets Not Reportable 09/06/20 05:04 Giant Platelets Not Reportable 09/06/20 05:04 Platelet Satelliting Not Reportable 09/06/20 05:04 Plt Morphology Comment Not Reportable 09/06/20 05:04 RBC Morphology Not Reportable 09/06/20 05:04 Dimorphic RBCs Not Reportable 09/06/20 05:04 Polychromasia Not Reportable 09/06/20 05:04 Hypochromasia Not Reportable 09/06/20 05:04 Poikilocytosis Not Reportable 09/06/20 05:04 Anisocytosis 1+ 09/06/20 05:04 Microcytosis Not Reportable 09/06/20 05:04 Macrocytosis Not Reportable 09/06/20 05:04 Spherocytes Not Reportable 09/06/20 05:04 Pappenheimer Bodies Not Reportable 09/06/20 05:04 Sickle Cells Not Reportable 09/06/20 05:04 Target Cells 1+ 09/06/20 05:04 Tear Drop Cells Not Reportable 09/06/20 05:04 Ovalocytes Not Reportable 09/06/20 05:04 Stomatocytes Few 09/03/20 04:39 Helmet Cells Not Reportable 09/06/20 05:04 Masters-Blacklake Bodies Not Reportable 09/06/20 05:04 [place] Rings Not Reportable 09/06/20 05:04 Kaylin Cells Not Reportable 09/06/20 05:04 Bite Cells Not Reportable 09/06/20 05:04 Crenated Cell Not Reportable 09/06/20 05:04 Elliptocytes Not Reportable 09/06/20 05:04 Acanthocytes (Spur) Not Reportable 09/06/20 05:04 Rouleaux Not Reportable 09/06/20 05:04 Hemoglobin C Crystals Not Reportable 09/06/20 05:04 Schistocytes Not Reportable 09/06/20 05:04 Malaria parasites Not Reportable 09/06/20 05:04 Praveen Bodies Not Reportable 09/06/20 05:04 Hem Pathologist Commnt No 09/06/20 05:04 Sodium 132 mmol/L (137-145) L 09/06/20 05:04 Potassium 3.3 mmol/L (3.6-5.0) L 09/06/20 05:04 Chloride 96.4 mmol/L (98-107) L 09/06/20 05:04 Carbon Dioxide 22 mmol/L (22-30) 09/06/20 05:04 Anion Gap 17 mmol/L 09/06/20 05:04 BUN 6 mg/dL (9-20) L 09/06/20 05:04 Creatinine 0.7 mg/dL (0.8-1.3) L 09/06/20 05:04 Estimated GFR > 60 ml/min 09/06/20 05:04 BUN/Creatinine Ratio 9 % 09/06/20 05:04 Glucose 84 mg/dL (75-100) 09/06/20 05:04 Hemoglobin A1c 5.4 % (4-6) 09/03/20 04:39 Lactic Acid 1.00 mmol/L (0.7-2.0) 09/02/20 16:44 Calcium 8.3 mg/dL (8.4-10.2) L 09/06/20 05:04 Total Bilirubin 0.30 mg/dL (0.1-1.2) 09/03/20 04:39 AST 45 units/L (5-40) H 09/03/20 04:39 ALT 46 units/L (7-56) 09/03/20 04:39 Alkaline Phosphatase 211 units/L (35-129) H 09/03/20 04:39 Troponin T < 0.010 ng/mL (0.00-0.029) 09/03/20 16:07 Total Protein 7.0 g/dL (6.3-8.2) 09/03/20 04:39 Albumin 3.1 g/dL (3.9-5) L 09/03/20 04:39 Albumin/Globulin Ratio 0.8 % 09/03/20 04:39 Urine Color Yellow (Yellow) 09/02/20 Unknown Urine Turbidity Clear (Clear) 09/02/20 Unknown Urine pH 6.0 (5.0-7.0) 09/02/20 Unknown Ur Specific [place] 1.020 (1.003-1.030) 09/02/20 Unknown Urine Protein 30 mg/dl mg/dL (Negative) 09/02/20 Unknown Urine Glucose (UA) Neg mg/dL (Negative) 09/02/20 Unknown Urine Ketones Neg mg/dL (Negative) 09/02/20 Unknown Urine Blood Neg (Negative) 09/02/20 Unknown Urine Nitrite Neg (Negative) 09/02/20 Unknown Urine Bilirubin Neg (Negative) 09/02/20 Unknown Urine Urobilinogen 4.0 mg/dL (<2.0) 09/02/20 Unknown Ur Leukocyte Esterase Neg (Negative) 09/02/20 Unknown Urine WBC (Auto) 3.0 /HPF (0.0-6.0) 09/02/20 Unknown Urine RBC (Auto) 1.0 /HPF (0.0-6.0) 09/02/20 Unknown U Epithel Cells (Auto) < 1.0 /HPF (0-13.0) 09/02/20 Unknown Urine Mucus Few /HPF 09/02/20 Unknown Nasal Screen MRSA (PCR) Negative (Negative) 09/03/20 16:15 Blood Type A POSITIVE 09/03/20 04:45 Antibody Screen Negative 09/03/20 04:45 Crossmatch See Detail 09/03/20 04:45 Microbiology: Microbiology 09/02/20 14:25 Peripheral/Venous Blood Culture - Preliminary NO GROWTH AFTER 4 DAYS 09/02/20 14:21 Peripheral/Venous Blood Culture - Preliminary NO GROWTH AFTER 4 DAYS - Diagnostic Impressions Diagnostic Impressions: Echocardiogram 09/03/20 03:02 Transthoracic Echocardiogram Indication: Chest pain BP: 104/65 HR: 99 Conclusions *EF 55-60% *BORDERLINE LVH * " DILITATION OF ASCENDING AORTA Findings Left Ventricle: The left ventricular chamber size is normal. Global left ventricular wall motion and contractility are within normal limits. Global left ventricular systolic function is normal. The estimated ejection fraction is 55-60%. Left Atrium: The left atrial chamber size is normal. Right Ventricle: The right ventricular cavity size is normal. Right Atrium: The right atrial cavity size is normal. Aortic Valve: The aortic valve leaflets are mildly thickened. There is no evidence of aortic regurgitation. Mitral Valve: The mitral valve leaflets are mildly thickened. There is trace of mitral regurgitation. Tricuspid Valve: The tricuspid valve leaflets are normal. There is trace tricuspid regurgitation. Pulmonic Valve: The pulmonic valve appears normal. Pericardium: There is no pericardial effusion. Aorta: The aorta appears normal. Venous: The inferior vena cava appears normal. Measurements Chambers 2D Name Value Normal Range IVSd (2D) 0.97 cm (0.6 - 1.1) LVPWd (2D) 0.92 cm (0.6 - 1.1) LVIDd (2D) 4.82 cm (3.7 - 5.6) LVIDs (2D) 3.72 cm (2 - 3.8) LV FS (2D) 22.74 % - EF Teichholz (2D) 45.64 % - Ao root diameter (2D) 3.28 cm (2 - 3.7) Volumes/Mass Name Value Normal Range LA ESV SP 4CH (A/L) 16.99 ml - LA ESV SP 2CH (A/L) 26.74 ml - LA ESV BP (A/L) 21.5 ml - LA ESV BP (A/L) index 11.69 ml/m2 - LA ESV SP 4CH (MOD) 14.97 ml - LA ESV SP 2CH (MOD) 26.16 ml - LA ESV BP (MOD) 19.6 ml - LA ESV BP (MOD) index 10.65 ml/m2 - Diastolic/Systolic Function Name Value Normal Range MV E-wave Vmax 0.76 m/sec - MV deceleration time 201.48 msec - MV A-wave Vmax 0.59 m/sec - MV E:A ratio 1.29 ratio - Aortic Valve Name Value Normal Range AV Vmax 1.46 m/sec - AV VTI 24.66 cm - AV peak gradient 8.49 mmHg - AV mean gradient 5.25 mmHg - LVOT diameter 2.1 cm - LVOT Vmax 1.17 m/sec - LVOT VTI 19.28 cm - LVOT peak gradient 5.44 mmHg - LVOT mean gradient 3.38 mmHg - SV LVOT 66.49 ml - KOLE (continuity Vmax) 2.76 cm2 - KOLE (continuity VTI) 2.7 cm2 - Pulmonic Valve/Qp:Qs Name Value Normal Range PV Vmax 0.86 m/sec - PV peak gradient 2.98 mmHg - PV acceleration time 110.37 msec - Solis/IV: Voiding Method Urinal IV Catheter Type [Right Peripheral IV Forearm] Active Medications - Current Medications Current Medications: Generic Name Dose Route Start Last Admin Trade Name Freq PRN Reason Stop Dose Admin Acetaminophen 650 mg 09/03/20 02:56 09/07/20 07:26 Tylenol PO 650 mg Q4H PRN Administration Pain MILD(1-3)/Fever >100.5/ALLEN Heparin Sodium (Porcine) 5,000 unit 09/03/20 10:00 09/06/20 22:32 Heparin SUB-Q 5,000 unit Q12HR PEACE Administration Hydromorphone HCl 0.5 mg 09/03/20 02:56 09/04/20 18:16 Dilaudid IV 0.5 mg Q3H PRN Administration Pain , Severe (7-10) Fluconazole 200 mls @ 100 mls/hr 09/03/20 16:00 09/06/20 09:34 Diflucan IV 09/24/20 15:59 100 mls/hr Q24HR PEACE Administration Protocol Sodium Chloride 1,000 mls @ 100 mls/hr 09/04/20 10:00 09/07/20 01:39 Nacl 0.9% 1000 Ml IV 50 mls/hr DIRECT PEACE Administration Ganciclovir Sodium 350 mg/ 250 mls @ 100 mls/hr 09/04/20 14:00 09/06/20 22:31 Sodium Chloride IV 100 mls/hr Q12HR PEACE Administration Ketorolac Tromethamine 15 mg 09/02/20 20:56 09/07/20 07:36 Toradol IM 09/07/20 20:55 15 mg Q6HR PRN Administration Pain Metoclopramide HCl 10 mg 09/03/20 02:56 09/06/20 18:09 Reglan IV 10 mg Q6H PRN Administration Nausea And Vomiting Morphine Sulfate 2 mg 09/03/20 02:56 09/07/20 04:33 Morphine IV 2 mg Q4H PRN Administration Pain, Moderate (4-6) Pantoprazole Sodium 40 mg 09/03/20 22:00 09/06/20 22:32 Protonix IV 40 mg BID PEACE Administration Sodium Chloride 10 ml 09/03/20 10:00 09/06/20 22:32 Sodium Chloride Flush Syringe 10 Ml IV 10 ml BID PEACE Administration Sodium Chloride 10 ml 09/03/20 02:56 Sodium Chloride Flush Syringe 10 Ml IV PRN PRN LINE FLUSH Trimethoprim/Sulfamethoxazole 1 each 09/04/20 14:00 09/06/20 09:36 Bactrim Ds PO 1 each DAILY PEACE Administration
[2020-09-07] MEDS: SODIUM CHLORIDE 0.9% IV SCH ×2 (10:00→22:32)
[2020-09-07] MEDS: GANCICLOVIR SODIUM IV SCH ×2 (10:00→22:32)
[2020-09-07] MEDS: HEPARIN 5,000 UNIT/1 ML VIAL SUB-Q SCH ×2 (10:01→22:30)
[2020-09-07] MEDS: SULFAMETHOXAZOLE/TRIMETHOPRIM 800/160MG DS TAB PO SCH (10:01)
[2020-09-07] MEDS: PANTOPRAZOLE 40 MG TAB PO SCH ×2 (10:01→15:56)
[2020-09-07] MEDS: FLUCONAZOLE 400 MG 200 ML IV SCH (11:38)
--- NOTE | 2020-09-07 13:05 | Progress Note ---
Assessment and Plan Cultures: 09/02/2020 blood culture: No growth A/P: 35-year-old male with HIV/AIDS not on ART, IV methamphetamine abuse, ulcerative colitis, known to us from his previous hospitalization in June 2020. He presented to the emergency room with complaints of chest pain going on for about 2 weeks: #Fever, ?acute pericarditis: Cardiology on board. TTE unremarkable, not consist ent with pericarditis, EKG findings thought to be chronic and early re- polarization. Chest pain probably from severe esophagitis. #HIV/AIDS: Not on ART. Last viral load/HIV PCR in EMR was 622K in 06/2020 with CD4 count of 8 (3%). Originally diagnosed in 2006, has not gone back to [place] to restart his ART. He used to be on Triumeq but hasn't taken it at least for 2 years. He cannot give me a reason for his noncompliance. #Leukopenia: probably from AIDS. Rule out CMV viremia. #Polysubstance abuse: check Utox. Patient reports last use was 1 year ago. #Lymphadenopathy: Patient states a few years ago, in [facility], he was told he had lymphoma, was advised to follow up with an oncologist but never did. CT chest abdomen pelvis here only showed mild inguinal lymphadenopathy, no other concerning findings. ?from untreated HIV in which case it should improve with treatment. Can watch for now, patient denies any weight loss. #Oropharyngeal candidiasis / ulcerative esophagitis: severe, treat for possible esophagitis as well. S/P EGD by GI, discussed findings, "erosive esophagitis with extensive thick overlying exudate material and underlying shallow ulcerations. Biopsies and brushing obtained for pathology. Ddx including shima esophagitis vs viral including CMV vs HSV" #Cough: CXR without pneumonia, not hypoxic, so PJP less likely. Recs: F/U AFB blood culture, TB QuantiFERON gold, Histoplasma urinary antigen. f/u CMV DNA PCR quantitative f/u HIV RNA PCR, CD4 count, Genotype Continue IV Fluconazole 400 mg daily x 3 weeks IV Ganciclovir 5 mg/kg q12 hrs started (empiric coverage for CMV and HSV). Could DC with valganciclovir if patient improved. F/U EGD biopsies, brushings and immunohistochemical staining Guarded prognosis Patient should follow up with Dr. Caballero or myself in clinic to establish care for HIV treatment. Juan Diaz MD [facility] ([facility]) M: [phone] O: [phone] F: [phone] Subjective Date of service: 09/07/20 Principal diagnosis: anemia Interval history: Afebrile, normal white count. No acute change today. Objective - Exam Narrative Exam: Constitutional: Alert, cooperative. No acute distress Head, Ears, Nose: Normocephalic, atraumatic. Eyes: Conjunctivae/corneas clear. No icterus. No ptosis. Neck: Supple, no meningeal signs Oral: Extensive thrush around the uvula and pharynx Cardiovascular: S1, S2 normal. Respiratory: Good air entry, clear to auscultation bilaterally GI: Soft, non-tender; bowel sounds normal. No peritoneal signs Musculoskeletal: No pedal edema, no cyanosis. Skin: Dry scaly rash on face Hem/Lymphatic: Bilateral axillary and groin tender lymphadenopathy Psych: Mood ok. Affect flat Neurological: Awake, alert, oriented. No gross abnormality - Constitutional Vitals: Vital Signs Temp Pulse Resp BP Pulse Ox 98.8 F 87 18 96/55 99 09/07/20 04:21 09/07/20 04:21 09/07/20 05:03 09/07/20 04:21 09/07/20 04:21 Temperature -Last 24 Hours Temperature 98.8 F Temperature 98.5 F Temperature 98.3 F - Labs CBC & Chem 7: 09/06/20 05:04 09/06/20 05:04
[2020-09-07] MEDS ORDERED: MAGNESIUM HYDROXIDE (MOM) ORAL LIQD UDC PO ONE (16:00)
[2020-09-07] MEDS: METOCLOPRAMIDE 10 MG/2 ML INJ IV PRN (17:27)
[2020-09-07] MEDS: HYDROmorphone 1 MG/1 ML INJ IV PRN (22:35)
[2020-09-08] MEDS ORDERED: MAGNESIUM HYDROXIDE (MOM) ORAL LIQD UDC PO PRN (00:32)
[2020-09-08] MEDS: PANTOPRAZOLE 40 MG TAB PO SCH ×2 (08:05→15:30)
[2020-09-08] MEDS: SULFAMETHOXAZOLE/TRIMETHOPRIM 800/160MG DS TAB PO SCH (09:36)
[2020-09-08] MEDS: FLUCONAZOLE 400 MG 200 ML IV SCH (09:37)
[2020-09-08] MEDS: HEPARIN 5,000 UNIT/1 ML VIAL SUB-Q SCH ×2 (09:44→21:37)
[2020-09-08] MEDS: MORPHINE 2 MG/1 ML INJ IV PRN ×2 (10:00→21:36)
--- NOTE | 2020-09-08 10:10 | Progress Note ---
Assessment and Plan Cultures: 09/02/2020 blood culture: No growth Serum Crypto negative A/P: 35-year-old male with HIV/AIDS not on ART, IV methamphetamine abuse, ulcerative colitis, known to us from his previous hospitalization in June 2020. He presented to the emergency room with complaints of chest pain going on for about 2 weeks: #Fever, ?acute pericarditis: Cardiology on board. TTE unremarkable, not consistent with pericarditis, EKG findings thought to be chronic and early re-polarization. Chest pain probably from severe esophagitis. #HIV/AIDS: Not on ART. Last viral load/HIV PCR in EMR was 622K in 06/2020 with CD4 count of 8 (3%). Originally diagnosed in 2006, has not gone back to [place] to restart his ART. He used to be on Triumeq but hasn't taken it at least for 2 years. He cannot give me a reason for his noncompliance. #Leukopenia: probably from AIDS. Rule out CMV viremia. #Polysubstance abuse: check Utox. Patient reports last use was 1 year ago. #Lymphadenopathy: Patient states a few years ago, in [facility], he was told he had lymphoma, was advised to follow up with an oncologist but never did. CT chest abdomen pelvis here only showed mild inguinal lymphadenopathy, no other concerning findings. ?from untreated HIV in which case it should improve with treatment. Can watch for now, patient denies any weight loss. #Oropharyngeal candidiasis / ulcerative esophagitis: severe, treat for possible esophagitis as well. S/P EGD by GI, discussed findings, pathology with numerous bacteria and some spores and hyphae #Cough: CXR without pneumonia, not hypoxic, so PJP less likely. Recs: F/U AFB blood culture, TB QuantiFERON gold, Histoplasma urinary antigen. f/u CMV DNA PCR quantitative f/u HIV RNA PCR, CD4 count, Genotype Continue IV Fluconazole 400 mg daily x 3 weeks IV Ganciclovir 5 mg/kg q12 hrs started (empiric coverage for CMV and HSV). Could DC with valganciclovir if patient improved, still awaiting immunohistochemical stains Added Augmentin due to bacterial colonies present. F/U EGD biopsies, brushings and immunohistochemical staining Guarded prognosis If patient tolerating PO ok to DC on fluconazole PO 400mg q24h, valganciclovir 900mg q12h, and Augmentin 875/125mg q12h to complete 3 weeks therapy and discharge. Patient should follow up with Dr. Caballero or myself in clinic to establish care for HIV treatment. Juan Diaz MD [facility] ([facility]) M: [phone] O: [phone] F: [phone] Subjective Date of service: 09/08/20 Principal diagnosis: anemia Interval history: Afebrile, stable mild leukopenia 3.3. No other complaints at this time. Objective - Exam Narrative Exam: Constitutional: Alert, cooperative. No acute distress Head, Ears, Nose: Normocephalic, atraumatic. Eyes: Conjunctivae/corneas clear. No icterus. No ptosis. Neck: Supple, no meningeal signs Oral: Extensive thrush around the uvula and pharynx Cardiovascular: S1, S2 normal. Respiratory: Good air entry, clear to auscultation bilaterally GI: Soft, non-tender; bowel sounds normal. No peritoneal signs Musculoskeletal: No pedal edema, no cyanosis, R underarm excoriation Skin: Dry scaly rash on face Hem/Lymphatic: Bilateral axillary and groin tender lymphadenopathy Psych: Mood ok. Affect flat Neurological: Awake, alert, oriented. No gross abnormality - Constitutional Vitals: Vital Signs Temp Pulse Resp BP Pulse Ox 98.3 F 80 20 102/62 99 09/08/20 04:29 09/08/20 04:29 09/08/20 10:00 09/08/20 04:29 09/08/20 04:29 Temperature -Last 24 Hours Temperature 98.3 F Temperature 99.0 F Temperature 99.0 F Temperature 98.4 F - Labs CBC & Chem 7: 09/06/20 05:04 09/06/20 05:04
--- NOTE | 2020-09-08 10:30 | Progress Note ---
Assessment and Plan Assessment and plan: --Hypokalemia; Current Visit: Yes Status: Acute Plan to address problem: Replenish with oral KCl follow electrolytes -Hyponatremia; Current Visit: Yes Status: Acute Plan to address problem: Gentle hydration, monitor electrolytes --SIRS (systemic inflammatory response syndrome) Current Visit: Yes Status: Acute Plan to address problem: Patient has been having fever for 1 day. Afebrile today closely monitor --GI bleed Current Visit: Yes Status: Acute Plan to address problem: Patient has been having dark stools. Possible upper GI bleed hemoglobin is low at 6.2-8.8 s/p EGD; -Mild antral erythema -Moderate erosive esophagitis with shallow ulcerations Biopsies done, possible [place] esophagitis versus viral CMV versus HSV Normal duodenum --Oropharyngeal candidiasis: Ulcerative esophagitis; Current Visit: Yes Status: Acute Plan to address problem: I will continue IV Protonix twice daily IV fluconazole 400 daily x 3 weeks IV ganciclovir, pretreatment for CMV/HSV per ID --Symptomatic /acute versus chronic blood loss anemia Current Visit: Yes Status: Acute Plan to address problem: Hemoglobin 6.2 Improved to 8.8-8.1 Closely monitor H/H, transfuse as needed -- Febrile illness, acute Current Visit: No Status: Acute Plan to address problem: Secondary to an underlying HIV -- Chest pain/noncardiac, probably secondary to GERD Current Visit: Yes Status: Acute Plan to address problem: Elevated by cardiology Noncardiac chest pain Probably secondary to GERD,Protonix No evidence of pericarditis -- HIV/AIDS Current Visit: Yes Status: Chronic Plan to address problem: Management per ID --History of Crohn's disease Current Visit: Yes Status: Chronic Plan to address problem: Not on any medication GI following --DVT prophylaxis Current Visit: No Status: Acute Plan to address problem: On heparin and GI prophylaxis Closely monitor the patient and adjust management as needed Patient is critically ill with multiple medical problems Poor prognosis Consults and recommendations noted and appreciated Plan of care reviewed with the patient and his nurse 09/06; hypokalemia corrected with KCl, hyponatremia, gentle hydration with normal saline Monitor electrolytes, patient is on ganciclovir and IV Diflucan for total 3 weeks per ID 09/07; patient feels slightly better, receiving ganciclovir and Diflucan, for total 3 weeks Check with case management, discharge planning ID following 09/08; patient is on IV ganciclovir and Diflucan History Interval history: I have seen and examined the patient at the bedside Patient's chart and medications reviewed Patient feels slightly better complains of some pain all over the body Vital signs noted Hospitalist Physical - Constitutional Vitals: Temp Pulse Resp BP Pulse Ox 98.3 F 80 20 102/62 99 09/08/20 04:29 09/08/20 04:29 09/08/20 10:00 09/08/20 04:29 09/08/20 04:29 General appearance: Present: no acute distress, well-nourished - EENT Eyes: Present: PERRL, EOM intact - Neck Neck: Present: supple, normal ROM - Respiratory Respiratory effort: normal Respiratory: bilateral: diminished, negative: rales, rhonchi, wheezing - Cardiovascular Rhythm: regular Heart Sounds: Present: S1 & S2 - Extremities Extremities: no ischemia, No edema - Abdominal General gastrointestinal: soft, non-tender, non-distended, normal bowel sounds - Integumentary Integumentary: Present: clear, warm - Psychiatric Psychiatric: appropriate mood/affect, cooperative - Neurologic Neurologic: moves all extremities HEART Score - HEART Score Risk factors: No known risk factors Troponin: Troponin T < 0.010 ng/mL (0.00-0.029) 09/03/20 16:07 Troponin: < normal limit - Critical Actions Critical Actions: 4-6 pts:12-16.6% risk of adverse cardiac event. Should be admitted Results - Labs CBC & Chem 7: 09/08/20 14:01 09/08/20 14:01 Labs: Laboratory Last Values WBC 3.3 K/mm3 (4.5-11.0) L 09/06/20 05:04 RBC 3.07 M/mm3 (3.65-5.03) L 09/06/20 05:04 Hgb 8.6 gm/dl (11.8-15.2) L 09/06/20 05:04 Hct 25.5 % (35.5-45.6) L 09/06/20 05:04 MCV 83 fl (84-94) L 09/06/20 05:04 MCH 28 pg (28-32) 09/06/20 05:04 MCHC 34 % (32-34) 09/06/20 05:04 RDW 14.5 % (13.2-15.2) 09/06/20 05:04 Plt Count 262 K/mm3 (140-440) 09/06/20 05:04 Chase % (Auto) Weaver Needle Loom 09/06/20 05:04 Eos % (Auto) Weaver Needle Loom 09/03/20 04:39 Baso % (Auto) Weaver Needle Loom 09/03/20 04:39 Add Manual Diff Complete 09/06/20 05:04 Total Counted 100 09/06/20 05:04 Seg Neuts % (Manual) 51.0 % (40.0-70.0) 09/06/20 05:04 Band Neutrophils % 8.0 % 09/06/20 05:04 Lymphocytes % (Manual) 19.0 % (13.4-35.0) 09/06/20 05:04 Reactive Lymphs % (Man) 0 % 09/06/20 05:04 Monocytes % (Manual) 18.0 % (0.0-7.3) H 09/06/20 05:04 Eosinophils % (Manual) 4.0 % (0.0-4.3) 09/06/20 05:04 Basophils % (Manual) 0 % (0.0-1.8) 09/06/20 05:04 Metamyelocytes % 0 % 09/06/20 05:04 Myelocytes % 0 % 09/06/20 05:04 Promyelocytes % 0 % 09/06/20 05:04 Blast Cells % 0 % 09/06/20 05:04 Nucleated RBC % Not Reportable 09/06/20 05:04 Seg Neutrophils # Man 1.7 K/mm3 (1.8-7.7) L 09/06/20 05:04 Band Neutrophils # 0.3 K/mm3 09/06/20 05:04 Lymphocytes # (Manual) 0.6 K/mm3 (1.2-5.4) L 09/06/20 05:04 Abs React Lymphs (Man) 0.0 K/mm3 09/06/20 05:04 Monocytes # (Manual) 0.6 K/mm3 (0.0-0.8) 09/06/20 05:04 Eosinophils # (Manual) 0.1 K/mm3 (0.0-0.4) 09/06/20 05:04 Basophils # (Manual) 0.0 K/mm3 (0.0-0.1) 09/06/20 05:04 Metamyelocytes # 0.0 K/mm3 09/06/20 05:04 Myelocytes # 0.0 K/mm3 09/06/20 05:04 Promyelocytes # 0.0 K/mm3 09/06/20 05:04 Blast Cells # 0.0 K/mm3 09/06/20 05:04 WBC Morphology Not Reportable 09/06/20 05:04 Hypersegmented Neuts Not Reportable 09/06/20 05:04 Hyposegmented Neuts Not Reportable 09/06/20 05:04 Hypogranular Neuts Not Reportable 09/06/20 05:04 Smudge Cells Not Reportable 09/06/20 05:04 Toxic Granulation Not Reportable 09/06/20 05:04 Toxic Vacuolation Not Reportable 09/06/20 05:04 Dohle Bodies Not Reportable 09/06/20 05:04 Pelger-Huet Anomaly Not Reportable 09/06/20 05:04 Leah Rods Not Reportable 09/06/20 05:04 Platelet Estimate Consistent w auto 09/06/20 05:04 Clumped Platelets Not Reportable 09/06/20 05:04 Plt Clumps, EDTA Not Reportable 09/06/20 05:04 Large Platelets Not Reportable 09/06/20 05:04 Giant Platelets Not Reportable 09/06/20 05:04 Platelet Satelliting Not Reportable 09/06/20 05:04 Plt Morphology Comment Not Reportable 09/06/20 05:04 RBC Morphology Not Reportable 09/06/20 05:04 Dimorphic RBCs Not Reportable 09/06/20 05:04 Polychromasia Not Reportable 09/06/20 05:04 Hypochromasia Not Reportable 09/06/20 05:04 Poikilocytosis Not Reportable 09/06/20 05:04 Anisocytosis 1+ 09/06/20 05:04 Microcytosis Not Reportable 09/06/20 05:04 Macrocytosis Not Reportable 09/06/20 05:04 Spherocytes Not Reportable 09/06/20 05:04 Pappenheimer Bodies Not Reportable 09/06/20 05:04 Sickle Cells Not Reportable 09/06/20 05:04 Target Cells 1+ 09/06/20 05:04 Tear Drop Cells Not Reportable 09/06/20 05:04 Ovalocytes Not Reportable 09/06/20 05:04 Stomatocytes Few 09/03/20 04:39 Helmet Cells Not Reportable 09/06/20 05:04 Masters-Pierson Bodies Not Reportable 09/06/20 05:04 [place] Rings Not Reportable 09/06/20 05:04 [place] Cells Not Reportable 09/06/20 05:04 Bite Cells Not Reportable 09/06/20 05:04 Crenated Cell Not Reportable 09/06/20 05:04 Elliptocytes Not Reportable 09/06/20 05:04 Acanthocytes (Spur) Not Reportable 09/06/20 05:04 Rouleaux Not Reportable 09/06/20 05:04 Hemoglobin C Crystals Not Reportable 09/06/20 05:04 Schistocytes Not Reportable 09/06/20 05:04 Malaria parasites Not Reportable 09/06/20 05:04 Praveen Bodies Not Reportable 09/06/20 05:04 Hem Pathologist Commnt No 09/06/20 05:04 Sodium 132 mmol/L (137-145) L 09/06/20 05:04 Potassium 3.3 mmol/L (3.6-5.0) L 09/06/20 05:04 Chloride 96.4 mmol/L (98-107) L 09/06/20 05:04 Carbon Dioxide 22 mmol/L (22-30) 09/06/20 05:04 Anion Gap 17 mmol/L 09/06/20 05:04 BUN 6 mg/dL (9-20) L 09/06/20 05:04 Creatinine 0.7 mg/dL (0.8-1.3) L 09/06/20 05:04 Estimated GFR > 60 ml/min 09/06/20 05:04 BUN/Creatinine Ratio 9 % 09/06/20 05:04 Glucose 84 mg/dL (75-100) 09/06/20 05:04 Hemoglobin A1c 5.4 % (4-6) 09/03/20 04:39 Lactic Acid 1.00 mmol/L (0.7-2.0) 09/02/20 16:44 Calcium 8.3 mg/dL (8.4-10.2) L 09/06/20 05:04 Total Bilirubin 0.30 mg/dL (0.1-1.2) 09/03/20 04:39 AST 45 units/L (5-40) H 09/03/20 04:39 ALT 46 units/L (7-56) 09/03/20 04:39 Alkaline Phosphatase 211 units/L (35-129) H 09/03/20 04:39 Troponin T < 0.010 ng/mL (0.00-0.029) 09/03/20 16:07 Total Protein 7.0 g/dL (6.3-8.2) 09/03/20 04:39 Albumin 3.1 g/dL (3.9-5) L 09/03/20 04:39 Albumin/Globulin Ratio 0.8 % 09/03/20 04:39 Urine Color Yellow (Yellow) 09/02/20 Unknown Urine Turbidity Clear (Clear) 09/02/20 Unknown Urine pH 6.0 (5.0-7.0) 09/02/20 Unknown Ur Specific [place] 1.020 (1.003-1.030) 09/02/20 Unknown Urine Protein 30 mg/dl mg/dL (Negative) 09/02/20 Unknown Urine Glucose (UA) Neg mg/dL (Negative) 09/02/20 Unknown Urine Ketones Neg mg/dL (Negative) 09/02/20 Unknown Urine Blood Neg (Negative) 09/02/20 Unknown Urine Nitrite Neg (Negative) 09/02/20 Unknown Urine Bilirubin Neg (Negative) 09/02/20 Unknown Urine Urobilinogen 4.0 mg/dL (<2.0) 09/02/20 Unknown Ur Leukocyte Esterase Neg (Negative) 09/02/20 Unknown Urine WBC (Auto) 3.0 /HPF (0.0-6.0) 09/02/20 Unknown Urine RBC (Auto) 1.0 /HPF (0.0-6.0) 09/02/20 Unknown U Epithel Cells (Auto) < 1.0 /HPF (0-13.0) 09/02/20 Unknown Urine Mucus Few /HPF 09/02/20 Unknown Nasal Screen MRSA (PCR) Negative (Negative) 09/03/20 16:15 Blood Type A POSITIVE 09/03/20 04:45 Antibody Screen Negative 09/03/20 04:45 Crossmatch See Detail 09/03/20 04:45 Microbiology: Microbiology 09/02/20 14:21 Peripheral/Venous Blood Culture - Final NO GROWTH AFTER 5 DAYS 09/02/20 14:25 Peripheral/Venous Blood Culture - Final NO GROWTH AFTER 5 DAYS - Diagnostic Impressions Diagnostic Impressions: Echocardiogram 09/03/20 03:02 Transthoracic Echocardiogram Indication: Chest pain BP: 104/65 HR: 99 Conclusions *EF 55-60% *BORDERLINE LVH * " DILITATION OF ASCENDING AORTA Findings Left Ventricle: The left ventricular chamber size is normal. Global left ventricular wall motion and contractility are within normal limits. Global left ventricular systolic function is normal. The estimated ejection fraction is 55-60%. Left Atrium: The left atrial chamber size is normal. Right Ventricle: The right ventricular cavity size is normal. Right Atrium: The right atrial cavity size is normal. Aortic Valve: The aortic valve leaflets are mildly thickened. There is no evidence of aortic regurgitation. Mitral Valve: The mitral valve leaflets are mildly thickened. There is trace of mitral regurgitation. Tricuspid Valve: The tricuspid valve leaflets are normal. There is trace tricuspid regurgitation. Pulmonic Valve: The pulmonic valve appears normal. Pericardium: There is no pericardial effusion. Aorta: The aorta appears normal. Venous: The inferior vena cava appears normal. Measurements Chambers 2D Name Value Normal Range IVSd (2D) 0.97 cm (0.6 - 1.1) LVPWd (2D) 0.92 cm (0.6 - 1.1) LVIDd (2D) 4.82 cm (3.7 - 5.6) LVIDs (2D) 3.72 cm (2 - 3.8) LV FS (2D) 22.74 % - EF Teichholz (2D) 45.64 % - Ao root diameter (2D) 3.28 cm (2 - 3.7) Volumes/Mass Name Value Normal Range LA ESV SP 4CH (A/L) 16.99 ml - LA ESV SP 2CH (A/L) 26.74 ml - LA ESV BP (A/L) 21.5 ml - LA ESV BP (A/L) index 11.69 ml/m2 - LA ESV SP 4CH (MOD) 14.97 ml - LA ESV SP 2CH (MOD) 26.16 ml - LA ESV BP (MOD) 19.6 ml - LA ESV BP (MOD) index 10.65 ml/m2 - Diastolic/Systolic Function Name Value Normal Range MV E-wave Vmax 0.76 m/sec - MV deceleration time 201.48 msec - MV A-wave Vmax 0.59 m/sec - MV E:A ratio 1.29 ratio - Aortic Valve Name Value Normal Range AV Vmax 1.46 m/sec - AV VTI 24.66 cm - AV peak gradient 8.49 mmHg - AV mean gradient 5.25 mmHg - LVOT diameter 2.1 cm - LVOT Vmax 1.17 m/sec - LVOT VTI 19.28 cm - LVOT peak gradient 5.44 mmHg - LVOT mean gradient 3.38 mmHg - SV LVOT 66.49 ml - KOLE (continuity Vmax) 2.76 cm2 - KOLE (continuity VTI) 2.7 cm2 - Pulmonic Valve/Qp:Qs Name Value Normal Range PV Vmax 0.86 m/sec - PV peak gradient 2.98 mmHg - PV acceleration time 110.37 msec - Solis/IV: Voiding Method Urinal IV Catheter Type [Right Peripheral IV Forearm] Active Medications - Current Medications Current Medications: Generic Name Dose Route Start Last Admin Trade Name Freq PRN Reason Stop Dose Admin Acetaminophen 650 mg 09/03/20 02:56 09/07/20 11:38 Tylenol PO 650 mg Q4H PRN Administration Pain MILD(1-3)/Fever >100.5/ALLEN Heparin Sodium (Porcine) 5,000 unit 09/03/20 10:00 09/08/20 09:44 Heparin SUB-Q 5,000 unit Q12HR PEACE Administration Hydromorphone HCl 0.5 mg 09/03/20 02:56 09/07/20 22:35 Dilaudid IV 0.5 mg Q3H PRN Administration Pain , Severe (7-10) Fluconazole 200 mls @ 100 mls/hr 09/03/20 16:00 09/08/20 09:37 Diflucan IV 09/24/20 11:59 100 mls/hr Q24HR PEACE Administration Protocol Sodium Chloride 1,000 mls @ 100 mls/hr 09/04/20 10:00 09/07/20 22:36 Nacl 0.9% 1000 Ml IV 50 mls/hr DIRECT PEACE Administration Ganciclovir Sodium 350 mg/ 250 mls @ 100 mls/hr 09/04/20 14:00 09/07/20 22:32 Sodium Chloride IV 100 mls/hr Q12HR PEACE Administration Magnesium Hydroxide 30 ml 09/08/20 00:32 09/08/20 00:39 Milk Of Magnesia PO 30 ml Q4H PRN Administration Constipation Metoclopramide HCl 10 mg 09/03/20 02:56 09/07/20 17:27 Reglan IV 10 mg Q6H PRN Administration Nausea And Vomiting Morphine Sulfate 2 mg 09/03/20 02:56 09/08/20 10:00 Morphine IV 2 mg Q4H PRN Administration Pain, Moderate (4-6) Pantoprazole Sodium 40 mg 09/07/20 10:00 09/08/20 08:05 Protonix PO 40 mg BIDAC PEACE Administration Sodium Chloride 10 ml 09/03/20 10:00 09/08/20 10:02 Sodium Chloride Flush Syringe 10 Ml IV 10 ml BID PEACE Administration Sodium Chloride 10 ml 09/03/20 02:56 09/07/20 19:33 Sodium Chloride Flush Syringe 10 Ml IV 10 ml PRN PRN Administration LINE FLUSH Trimethoprim/Sulfamethoxazole 1 each 09/04/20 14:00 09/08/20 09:36 Bactrim Ds PO 1 each DAILY PEACE Administration
[2020-09-08] MEDS: AMOXICILLIN/K CLAV 875/125MG TAB PO SCH ×2 (11:39→21:37)
[2020-09-08] MEDS: SODIUM CHLORIDE 0.9% IV SCH ×2 (11:40→21:38)
[2020-09-08] MEDS: GANCICLOVIR SODIUM IV SCH ×2 (11:40→21:38)
[2020-09-08 14:33] LABS: Hematocrit 24.5 % (35.5-45.6); Hemoglobin 8.4 gm/dl (11.8-15.2); Mean Corpuscular HGB Conc 34 % (32-34); Mean Corpuscular Volume 82 fl (84-94); Platelet Count 311 K/mm3 (140-440); Red Blood Count 2.99 M/mm3 (3.65-5.03); Red Cell Distribution Width 14.6 % (13.2-15.2)
[2020-09-08 14:46] LABS: Calcium 7.9 mg/dL (8.4-10.2); Hemolysis Index 7
[2020-09-08 15:39] LABS: BUN/Creatinine Ratio 8; Blood Urea Nitrogen 5 mg/dL (9-20)
[2020-09-08 16:35] LABS: Band Neutrophils # (Manual) 0.6 K/mm3; Total Cells Counted 100
[2020-09-08 16:36] LABS: Target Cells 1+
[2020-09-08 16:37] LABS: Anisocytosis RARE; Platelet Estimate Consistent w Auto
[2020-09-08] MEDS: SODIUM CHLORIDE 0.9% 1000 ML 1,000 ML IV SCH (21:36)
[2020-09-09 09:08] LABS: CD19, Absolute SEE SCANNED RESULT; CD3, Absolute SEE SCANNED RESULT; CD3, Percentage SEE SCANNED RESULT; CD4, Absolute SEE SCANNED RESULT; CD4, Percentage SEE SCANNED RESULT; CD4/CD8 Ratio SEE SCANNED RESULT; CD8, Absolute SEE SCANNED RESULT; CD8, Percentage SEE SCANNED RESULT; Lymphocytes, Absolute SEE SCANNED RESULT
[2020-09-09] MEDS: FLUCONAZOLE 400 MG 200 ML IV SCH (10:28)
[2020-09-09] MEDS: PANTOPRAZOLE 40 MG TAB PO SCH (10:29)
[2020-09-09] MEDS: AMOXICILLIN/K CLAV 875/125MG TAB PO SCH (10:30)
[2020-09-09] MEDS: HEPARIN 5,000 UNIT/1 ML VIAL SUB-Q SCH (10:30)
[2020-09-09] MEDS: SULFAMETHOXAZOLE/TRIMETHOPRIM 800/160MG DS TAB PO SCH (10:30)
--- NOTE | 2020-09-09 11:08 | Progress Note ---
Assessment and Plan Assessment and plan: --Oropharyngeal candidiasis: Ulcerative esophagitis; Current Visit: Yes Status: Acute Plan to address problem: I will continue IV Protonix twice daily IV fluconazole 400 daily x 3 weeks IV ganciclovir, pretreatment for CMV/HSV per ID --Hypokalemia; Current Visit: Yes Status: Acute Plan to address problem: Replenish with oral KCl follow electrolytes -Hyponatremia; Current Visit: Yes Status: Acute Plan to address problem: Gentle hydration, monitor electrolytes --SIRS (systemic inflammatory response syndrome) Current Visit: Yes Status: Acute Plan to address problem: Patient has been having fever for 1 day. Afebrile today closely monitor --GI bleed Current Visit: Yes Status: Acute Plan to address problem: Patient has been having dark stools. Possible upper GI bleed hemoglobin is low at 6.2-8.8 s/p EGD; -Mild antral erythema -Moderate erosive esophagitis with shallow ulcerations Biopsies done, possible [place] esophagitis versus viral CMV versus HSV Normal duodenum --Symptomatic /acute versus chronic blood loss anemia Current Visit: Yes Status: Acute Plan to address problem: Hemoglobin 6.2 Improved to 8.8-8.1 Closely monitor H/H, transfuse as needed -- Febrile illness, acute Current Visit: No Status: Acute Plan to address problem: Secondary to an underlying HIV -- Chest pain/noncardiac, probably secondary to GERD Current Visit: Yes Status: Acute Plan to address problem: Elevated by cardiology Noncardiac chest pain Probably secondary to GERD,Protonix No evidence of pericarditis -- HIV/AIDS Current Visit: Yes Status: Chronic Plan to address problem: Management per ID --History of Crohn's disease Current Visit: Yes Status: Chronic Plan to address problem: Not on any medication GI following --DVT prophylaxis Current Visit: No Status: Acute Plan to address problem: On heparin and GI prophylaxis Closely monitor the patient and adjust management as needed Patient is critically ill with multiple medical problems Poor prognosis Consults and recommendations noted and appreciated Plan of care reviewed with the patient and his nurse 09/06; hypokalemia corrected with KCl, hyponatremia, gentle hydration with normal saline Monitor electrolytes, patient is on ganciclovir and IV Diflucan for total 3 weeks per ID 09/07; patient feels slightly better, receiving ganciclovir and Diflucan, for total 3 weeks Check with case management, discharge planning ID following 09/08; patient is on IV ganciclovir and Diflucan 09/09: Continue long-term IV ganciclovir and Diflucan History Interval history: I have seen and examined the patient in the bedside this morning Patient's chart and current medications reviewed Patient feels slightly better No new complaints Hospitalist Physical - Constitutional Vitals: Temp Pulse Resp BP Pulse Ox 98.2 F 85 18 106/73 100 09/09/20 04:59 09/09/20 04:59 09/09/20 04:59 09/09/20 04:59 09/09/20 04:59 General appearance: Present: no acute distress, well-nourished HEART Score - HEART Score Risk factors: No known risk factors Troponin: Troponin T < 0.010 ng/mL (0.00-0.029) 09/03/20 16:07 Troponin: < normal limit - Critical Actions Critical Actions: 4-6 pts:12-16.6% risk of adverse cardiac event. Should be admitted Results - Labs CBC & Chem 7: 09/08/20 14:01 09/08/20 14:01 Labs: Laboratory Last Values WBC 2.7 K/mm3 (4.5-11.0) L 09/08/20 14:01 RBC 2.99 M/mm3 (3.65-5.03) L 09/08/20 14:01 Hgb 8.4 gm/dl (11.8-15.2) L 09/08/20 14:01 Hct 24.5 % (35.5-45.6) L 09/08/20 14:01 MCV 82 fl (84-94) L 09/08/20 14:01 MCH 28 pg (28-32) 09/08/20 14:01 MCHC 34 % (32-34) 09/08/20 14:01 RDW 14.6 % (13.2-15.2) 09/08/20 14:01 Plt Count 311 K/mm3 (140-440) 09/08/20 14:01 [place] % (Auto) Chemical Dependency Counselor 09/06/20 05:04 Eos % (Auto) Chemical Dependency Counselor 09/03/20 04:39 Baso % (Auto) Chemical Dependency Counselor 09/03/20 04:39 Add Manual Diff Complete 09/08/20 14:01 Total Counted 100 09/08/20 14:01 Seg Neuts % (Manual) 37.0 % (40.0-70.0) L 09/08/20 14:01 Band Neutrophils % 21.0 % 09/08/20 14:01 Lymphocytes % (Manual) 20.0 % (13.4-35.0) 09/08/20 14:01 Reactive Lymphs % (Man) 0 % 09/08/20 14:01 Monocytes % (Manual) 12.0 % (0.0-7.3) H 09/08/20 14:01 Eosinophils % (Manual) 9.0 % (0.0-4.3) H 09/08/20 14:01 Basophils % (Manual) 1.0 % (0.0-1.8) 09/08/20 14:01 Metamyelocytes % 0 % 09/08/20 14:01 Myelocytes % 0 % 09/08/20 14:01 Promyelocytes % 0 % 09/08/20 14:01 Blast Cells % 0 % 09/08/20 14:01 Nucleated RBC % Not Reportable 09/08/20 14:01 Seg Neutrophils # Man 1.0 K/mm3 (1.8-7.7) L 09/08/20 14:01 Band Neutrophils # 0.6 K/mm3 09/08/20 14:01 Abs Lymphs (Manual) See scanned result 09/03/20 16:07 Lymphocytes # (Manual) 0.5 K/mm3 (1.2-5.4) L 09/08/20 14:01 Abs React Lymphs (Man) 0.0 K/mm3 09/08/20 14:01 Monocytes # (Manual) 0.3 K/mm3 (0.0-0.8) 09/08/20 14:01 Eosinophils # (Manual) 0.2 K/mm3 (0.0-0.4) 09/08/20 14:01 Basophils # (Manual) 0.0 K/mm3 (0.0-0.1) 09/08/20 14:01 Metamyelocytes # 0.0 K/mm3 09/08/20 14:01 Myelocytes # 0.0 K/mm3 09/08/20 14:01 Promyelocytes # 0.0 K/mm3 09/08/20 14:01 Blast Cells # 0.0 K/mm3 09/08/20 14:01 WBC Morphology Not Reportable 09/08/20 14:01 Hypersegmented Neuts Not Reportable 09/08/20 14:01 Hyposegmented Neuts Not Reportable 09/08/20 14:01 Hypogranular Neuts Not Reportable 09/08/20 14:01 Smudge Cells Not Reportable 09/08/20 14:01 Toxic Granulation Not Reportable 09/08/20 14:01 Toxic Vacuolation Not Reportable 09/08/20 14:01 Dohle Bodies Not Reportable 09/08/20 14:01 Pelger-Huet Anomaly Not Reportable 09/08/20 14:01 Leah Rods Not Reportable 09/08/20 14:01 Platelet Estimate Consistent w auto 09/08/20 14:01 Clumped Platelets Not Reportable 09/08/20 14:01 Plt Clumps, EDTA Not Reportable 09/08/20 14:01 Large Platelets Not Reportable 09/08/20 14:01 Giant Platelets Not Reportable 09/08/20 14:01 Platelet Satelliting Not Reportable 09/08/20 14:01 Plt Morphology Comment Not Reportable 09/08/20 14:01 RBC Morphology Not Reportable 09/08/20 14:01 Dimorphic RBCs Not Reportable 09/08/20 14:01 Polychromasia Not Reportable 09/08/20 14:01 Hypochromasia Not Reportable 09/08/20 14:01 Poikilocytosis Not Reportable 09/08/20 14:01 Anisocytosis Rare 09/08/20 14:01 Microcytosis Not Reportable 09/08/20 14:01 Macrocytosis Not Reportable 09/08/20 14:01 Spherocytes Not Reportable 09/08/20 14:01 Pappenheimer Bodies Not Reportable 09/08/20 14:01 Sickle Cells Not Reportable 09/08/20 14:01 Target Cells 1+ 09/08/20 14:01 Tear Drop Cells Not Reportable 09/08/20 14:01 Ovalocytes Not Reportable 09/08/20 14:01 Stomatocytes Few 09/03/20 04:39 Helmet Cells Not Reportable 09/08/20 14:01 [place] Bodies Not Reportable 09/08/20 14:01 [place] Rings Not Reportable 09/08/20 14:01 Kaylin Cells Not Reportable 09/08/20 14:01 Bite Cells Not Reportable 09/08/20 14:01 Crenated Cell Not Reportable 09/08/20 14:01 Elliptocytes Not Reportable 09/08/20 14:01 Acanthocytes (Spur) Not Reportable 09/08/20 14:01 Rouleaux Not Reportable 09/08/20 14:01 Hemoglobin C Crystals Not Reportable 09/08/20 14:01 Schistocytes Not Reportable 09/08/20 14:01 Malaria parasites Not Reportable 09/08/20 14:01 Praveen Bodies Not Reportable 09/08/20 14:01 Hem Pathologist Commnt No 09/08/20 14:01 Sodium 140 mmol/L (137-145) D 09/08/20 14:01 Potassium 4.1 mmol/L (3.6-5.0) D 09/08/20 14:01 Chloride 106.6 mmol/L (98-107) 09/08/20 14:01 Carbon Dioxide 24 mmol/L (22-30) 09/08/20 14:01 Anion Gap 14 mmol/L 09/08/20 14:01 BUN 5 mg/dL (9-20) L 09/08/20 14:01 Creatinine 0.6 mg/dL (0.8-1.3) L 09/08/20 14:01 Estimated GFR > 60 ml/min 09/08/20 14:01 BUN/Creatinine Ratio 8 % 09/08/20 14:01 Glucose 95 mg/dL (75-100) 09/08/20 14:01 Hemoglobin A1c 5.4 % (4-6) 09/03/20 04:39 Lactic Acid 1.00 mmol/L (0.7-2.0) 09/02/20 16:44 Calcium 7.9 mg/dL (8.4-10.2) L 09/08/20 14:01 Total Bilirubin 0.30 mg/dL (0.1-1.2) 09/03/20 04:39 AST 45 units/L (5-40) H 09/03/20 04:39 ALT 46 units/L (7-56) 09/03/20 04:39 Alkaline Phosphatase 211 units/L (35-129) H 09/03/20 04:39 Troponin T < 0.010 ng/mL (0.00-0.029) 09/03/20 16:07 Total Protein 7.0 g/dL (6.3-8.2) 09/03/20 04:39 Albumin 3.1 g/dL (3.9-5) L 09/03/20 04:39 Albumin/Globulin Ratio 0.8 % 09/03/20 04:39 Urine Color Yellow (Yellow) 09/02/20 Unknown Urine Turbidity Clear (Clear) 09/02/20 Unknown Urine pH 6.0 (5.0-7.0) 09/02/20 Unknown Ur Specific Loco 1.020 (1.003-1.030) 09/02/20 Unknown Urine Protein 30 mg/dl mg/dL (Negative) 09/02/20 Unknown Urine Glucose (UA) Neg mg/dL (Negative) 09/02/20 Unknown Urine Ketones Neg mg/dL (Negative) 09/02/20 Unknown Urine Blood Neg (Negative) 09/02/20 Unknown Urine Nitrite Neg (Negative) 09/02/20 Unknown Urine Bilirubin Neg (Negative) 09/02/20 Unknown Urine Urobilinogen 4.0 mg/dL (<2.0) 09/02/20 Unknown Ur Leukocyte Esterase Neg (Negative) 09/02/20 Unknown Urine WBC (Auto) 3.0 /HPF (0.0-6.0) 09/02/20 Unknown Urine RBC (Auto) 1.0 /HPF (0.0-6.0) 09/02/20 Unknown U Epithel Cells (Auto) < 1.0 /HPF (0-13.0) 09/02/20 Unknown Urine Mucus Few /HPF 09/02/20 Unknown Nasal Screen MRSA (PCR) Negative (Negative) 09/03/20 16:15 Lymph Enumerat CD4/CD8 See scanned result 09/03/20 16:07 % CD3 Cells See scanned result 09/03/20 16:07 Absolute CD3 Count See scanned result 09/03/20 16:07 % CD4 Cells See scanned result 09/03/20 16:07 Absolute CD4 Count See scanned result 09/03/20 16:07 % CD8 Cells See scanned result 09/03/20 16:07 Absolute CD8 Count See scanned result 09/03/20 16:07 % CD19 Cells See scanned result 09/03/20 16:07 Absolute CD19 Count See scanned result 09/03/20 16:07 CMV Specimen Source Serum 09/03/20 16:07 CMV DNA PCR log helicopter pilot/mL See scanned result 09/03/20 16:07 TB (QFT) Gold In Tube See scanned result 09/04/20 08:56 TB Test (QFT) Nil See scanned result 09/04/20 08:56 TB Test Mitogen - Nil See scanned result 09/04/20 08:56 TB Test Antigen - Nil See scanned result 09/04/20 08:56 Blood Type A POSITIVE 09/03/20 04:45 Antibody Screen Negative 09/03/20 04:45 Crossmatch See Detail 09/03/20 04:45 - Diagnostic Impressions Diagnostic Impressions: Echocardiogram 09/03/20 03:02 Transthoracic Echocardiogram Indication: Chest pain BP: 104/65 HR: 99 Conclusions *EF 55-60% *BORDERLINE LVH * " DILITATION OF ASCENDING AORTA Findings Left Ventricle: The left ventricular chamber size is normal. Global left ventricular wall motion and contractility are within normal limits. Global left ventricular systolic function is normal. The estimated ejection fraction is 55-60%. Left Atrium: The left atrial chamber size is normal. Right Ventricle: The right ventricular cavity size is normal. Right Atrium: The right atrial cavity size is normal. Aortic Valve: The aortic valve leaflets are mildly thickened. There is no evidence of aortic regurgitation. Mitral Valve: The mitral valve leaflets are mildly thickened. There is trace of mitral regurgitation. Tricuspid Valve: The tricuspid valve leaflets are normal. There is trace tricuspid regurgitation. Pulmonic Valve: The pulmonic valve appears normal. Pericardium: There is no pericardial effusion. Aorta: The aorta appears normal. Venous: The inferior vena cava appears normal. Measurements Chambers 2D Name Value Normal Range IVSd (2D) 0.97 cm (0.6 - 1.1) LVPWd (2D) 0.92 cm (0.6 - 1.1) LVIDd (2D) 4.82 cm (3.7 - 5.6) LVIDs (2D) 3.72 cm (2 - 3.8) LV FS (2D) 22.74 % - EF Teichholz (2D) 45.64 % - Ao root diameter (2D) 3.28 cm (2 - 3.7) Volumes/Mass Name Value Normal Range LA ESV SP 4CH (A/L) 16.99 ml - LA ESV SP 2CH (A/L) 26.74 ml - LA ESV BP (A/L) 21.5 ml - LA ESV BP (A/L) index 11.69 ml/m2 - LA ESV SP 4CH (MOD) 14.97 ml - LA ESV SP 2CH (MOD) 26.16 ml - LA ESV BP (MOD) 19.6 ml - LA ESV BP (MOD) index 10.65 ml/m2 - Diastolic/Systolic Function Name Value Normal Range MV E-wave Vmax 0.76 m/sec - MV deceleration time 201.48 msec - MV A-wave Vmax 0.59 m/sec - MV E:A ratio 1.29 ratio - Aortic Valve Name Value Normal Range AV Vmax 1.46 m/sec - AV VTI 24.66 cm - AV peak gradient 8.49 mmHg - AV mean gradient 5.25 mmHg - LVOT diameter 2.1 cm - LVOT Vmax 1.17 m/sec - LVOT VTI 19.28 cm - LVOT peak gradient 5.44 mmHg - LVOT mean gradient 3.38 mmHg - SV LVOT 66.49 ml - KOLE (continuity Vmax) 2.76 cm2 - KOLE (continuity VTI) 2.7 cm2 - Pulmonic Valve/Qp:Qs Name Value Normal Range PV Vmax 0.86 m/sec - PV peak gradient 2.98 mmHg - PV acceleration time 110.37 msec - Solis/IV: Voiding Method Urinal IV Catheter Type [Right Peripheral IV Forearm] Active Medications - Current Medications Current Medications: Generic Name Dose Route Start Last Admin Trade Name Yevgeniyq PRN Reason Stop Dose Admin Acetaminophen 650 mg 09/03/20 02:56 09/07/20 11:38 Tylenol PO 650 mg Q4H PRN Administration Pain MILD(1-3)/Fever >100.5/ALLEN Amoxicillin/Clavulanate Potassium 1 each 09/08/20 11:00 09/09/20 10:30 Augmentin 875 Mg PO 09/28/20 22:01 1 each Q12HR PEACE Administration Heparin Sodium (Porcine) 5,000 unit 09/03/20 10:00 09/09/20 10:30 Heparin SUB-Q 5,000 unit Q12HR PEACE Administration Hydromorphone HCl 0.5 mg 09/03/20 02:56 09/07/20 22:35 Dilaudid IV 0.5 mg Q3H PRN Administration Pain , Severe (7-10) Fluconazole 200 mls @ 100 mls/hr 09/03/20 16:00 09/09/20 10:28 Diflucan IV 09/24/20 11:59 100 mls/hr Q24HR PEACE Administration Protocol Sodium Chloride 1,000 mls @ 100 mls/hr 09/04/20 10:00 09/08/20 21:36 Nacl 0.9% 1000 Ml IV 50 mls/hr DIRECT PEACE Administration Ganciclovir Sodium 350 mg/ 250 mls @ 100 mls/hr 09/04/20 14:00 09/08/20 21:38 Sodium Chloride IV 100 mls/hr Q12HR PEACE Administration Magnesium Hydroxide 30 ml 09/08/20 00:32 09/08/20 00:39 Milk Of Magnesia PO 30 ml Q4H PRN Administration Constipation Metoclopramide HCl 10 mg 09/03/20 02:56 09/07/20 17:27 Reglan IV 10 mg Q6H PRN Administration Nausea And Vomiting Morphine Sulfate 2 mg 09/03/20 02:56 09/08/20 21:36 Morphine IV 2 mg Q4H PRN Administration Pain, Moderate (4-6) Pantoprazole Sodium 40 mg 09/07/20 10:00 09/09/20 10:29 Protonix PO 40 mg BIDAC PEACE Administration Sodium Chloride 10 ml 09/03/20 10:00 09/09/20 10:30 Sodium Chloride Flush Syringe 10 Ml IV 10 ml BID PEACE Administration Sodium Chloride 10 ml 09/03/20 02:56 09/07/20 19:33 Sodium Chloride Flush Syringe 10 Ml IV 10 ml PRN PRN Administration LINE FLUSH Trimethoprim/Sulfamethoxazole 1 each 09/04/20 14:00 09/09/20 10:30 Bactrim Ds PO 1 each DAILY PEACE Administration
[2020-09-09] MEDS: SODIUM CHLORIDE 0.9% IV SCH (12:13)
[2020-09-09] MEDS: GANCICLOVIR SODIUM IV SCH (12:13)
--- NOTE | 2020-09-09 14:57 | Progress Note ---
Assessment and Plan Cultures: 09/02/2020 blood culture: No growth Serum Crypto negative A/P: 35-year-old male with HIV/AIDS not on ART, IV methamphetamine abuse, ulcerative colitis, known to us from his previous hospitalization in June 2020. He presented to the emergency room with complaints of chest pain going on for about 2 weeks: #Fever, ?acute pericarditis: Cardiology on board. TTE unremarkable, not consistent with pericarditis, EKG findings thought to be chronic and early re-polarization. Chest pain probably from severe esophagitis. #HIV/AIDS: Not on ART. Last viral load/HIV PCR in EMR was 622K in 06/2020 with CD4 count of 8 (3%), now 4 (1%). Originally diagnosed in 2006, has not gone back to [place] to restart his ART. He used to be on Triumeq but hasn't taken it at least for 2 years. He cannot give me a reason for his noncompliance. #Leukopenia: probably from AIDS. Rule out CMV viremia. #Polysubstance abuse: check Utox. Patient reports last use was 1 year ago. #Lymphadenopathy: Patient states a few years ago, in [facility], he was told he had lymphoma, was advised to follow up with an oncologist but never did. CT chest abdomen pelvis here only showed mild inguinal lymphadenopathy, no other concerning findings. ?from untreated HIV in which case it should improve with treatment. Can watch for now, patient denies any weight loss. #Oropharyngeal candidiasis / ulcerative esophagitis: severe, treat for possible esophagitis as well. S/P EGD by GI, discussed findings, pathology with numerous bacteria and some spores and hyphae #Cough: CXR without pneumonia, not hypoxic, so PJP less likely. Recs: F/U AFB blood culture, Histoplasma urinary antigen. f/u HIV RNA PCR, Genotype Continue IV Fluconazole 400 mg daily x 3 weeks IV Ganciclovir 5 mg/kg q12 hrs started (empiric coverage for CMV and HSV). Could DC with valganciclovir if patient improved, still awaiting immunohistochemical s tains Augmentin due to bacterial colonies present. F/U EGD biopsies, brushings and immunohistochemical staining Guarded prognosis If patient tolerating PO ok to DC on fluconazole PO 400mg q24h, valganciclovir 900mg q12h PO, and Augmentin 875/125mg q12h PO to complete 3 weeks therapy and discharge. Recommend Bactrim DS q24h to start once in clinic to avoid irritating esophagitis for PJP prophy Patient should follow up with Dr. Caballero or myself in clinic to establish care for HIV treatment. Juan Diaz MD [facility] ([facility]) M: [phone] O: [phone] F: [phone] Subjective Date of service: 09/09/20 Principal diagnosis: anemia Interval history: Afebrile with a persistent lymphopenia. No other acute complaints at this time. Objective - Exam Narrative Exam: Constitutional: Alert, cooperative. No acute distress Head, Ears, Nose: Normocephalic, atraumatic. Eyes: Conjunctivae/corneas clear. No icterus. Neck: Supple, no meningeal signs Oral: Extensive thrush around the uvula and pharynx Cardiovascular: S1, S2 normal. Respiratory: Good air entry, clear to auscultation bilaterally GI: Soft, non-tender; bowel sounds normal. No peritoneal signs Musculoskeletal: No pedal edema, no cyanosis, R underarm excoriation Skin: Dry scaly rash on face Hem/Lymphatic: Bilateral axillary and groin tender lymphadenopathy Psych: Mood ok. Affect flat Neurological: Awake, alert, oriented. No gross abnormality - Constitutional Vitals: Vital Signs Temp Pulse Resp BP Pulse Ox 98.0 F 90 20 104/69 99 09/09/20 12:22 09/09/20 12:22 09/09/20 12:22 09/09/20 12:22 09/09/20 12:22 Temperature -Last 24 Hours Temperature 98.0 F Temperature 98.2 F Temperature 97.1 F Temperature 98.2 F - Labs CBC & Chem 7: 09/08/20 14:01 09/08/20 14:01 Labs: Abnormal lab results 09/08/20 09/08/20 Range/Units 14:01 14:01 Seg Neuts % (Manual) 37.0 L (40.0-70.0) % Monocytes % (Manual) 12.0 H (0.0-7.3) % Eosinophils % (Manual) 9.0 H (0.0-4.3) % Seg Neutrophils # Man 1.0 L (1.8-7.7) K/mm3 Lymphocytes # (Manual) 0.5 L (1.2-5.4) K/mm3 BUN 5 L (9-20) mg/dL
[2020-09-09] MEDS: MORPHINE 2 MG/1 ML INJ IV PRN (16:09)
--- NOTE | 2020-09-09 16:30 | Discharge Summary ---
Providers - Providers Date of Admission: 09/03/20 14:37 Date of discharge: 09/09/20 Attending physician: JUSTINO MACDONALD 09/03/20 02:56 Consult to Physician [CONS] Routine Comment: Consulting Provider: LIANE GARZA Physician Instructions: Reason For Exam: Fever 09/03/20 03:04 Consult to Physician [CONS] Routine Comment: Consulting Provider: JOSIE VENCES Physician Instructions: Reason For Exam: GI bleed 09/08/20 01:10 Consult to Wound/ET Nurse [CONS] Routine Reason For Exam: wound eval for bilateral underarms [facility] Condition: Stable Hospital course: --Oropharyngeal candidiasis: Ulcerative esophagitis; Current Visit: Yes Status: Acute Plan to address problem: I will continue IV Protonix twice daily IV fluconazole 400 daily x 3 weeks IV ganciclovir, pretreatment for CMV/HSV per ID --Hypokalemia; Current Visit: Yes Status: Acute Plan to address problem: Replenish with oral KCl follow electrolytes -Hyponatremia; Current Visit: Yes Status: Acute Plan to address problem: Gentle hydration, monitor electrolytes --SIRS (systemic inflammatory response syndrome) Current Visit: Yes Status: Acute Plan to address problem: Patient has been having fever for 1 day. Afebrile today closely monitor --GI bleed Current Visit: Yes Status: Acute Plan to address problem: Patient has been having dark stools. Possible upper GI bleed hemoglobin is low at 6.2-8.8 s/p EGD; -Mild antral erythema -Moderate erosive esophagitis with shallow ulcerations Biopsies done, possible [place] esophagitis versus viral CMV versus HSV Normal duodenum --Symptomatic /acute versus chronic blood loss anemia Current Visit: Yes Status: Acute Plan to address problem: Hemoglobin 6.2 Improved to 8.8-8.1 Closely monitor H/H, transfuse as needed -- Febrile illness, acute Current Visit: No Status: Acute Plan to address problem: Secondary to an underlying HIV -- Chest pain/noncardiac, probably secondary to GERD Current Visit: Yes Status: Acute Plan to address problem: Elevated by cardiology Noncardiac chest pain Probably secondary to GERD,Protonix No evidence of pericarditis -- HIV/AIDS Current Visit: Yes Status: Chronic Plan to address problem: Management per ID --History of Crohn's disease Current Visit: Yes Status: Chronic Plan to address problem: Not on any medication GI following Disposition: DC-01 TO HOME OR SELFCARE Time spent for discharge: 35 min Core Measure Documentation - Palliative Care Palliative Care/ Comfort Measures: Not Applicable - Core Measures Any of the following diagnoses?: none Exam - Constitutional Vitals: Temp Pulse Resp BP Pulse Ox 98.0 F 90 20 104/69 99 09/09/20 12:22 09/09/20 12:22 09/09/20 12:22 09/09/20 12:22 09/09/20 12:22 General appearance: Present: no acute distress, well-nourished - EENT Eyes: Present: PERRL, EOM intact - Neck Neck: Present: supple, normal ROM - Respiratory Respiratory effort: normal Respiratory: bilateral: diminished, negative: rales, rhonchi, wheezing - Cardiovascular Rhythm: regular Heart Sounds: Present: S1 & S2 - Extremities Extremities: no ischemia, No edema - Abdominal General gastrointestinal: Present: soft, non-tender, non-distended, normal bowel sounds - Integumentary Integumentary: Present: clear, warm Plan Activity: advance as tolerated Diet: regular Additional Instructions: If you have worsening symptoms contact MD or go to emergency room. Advised to follow with infectious diseases/health department, GI and cardiology per schedule. Start taking.Bactrim DS after 3 to 4 weeks Follow up with: [facility] MD KAHLIL [Primary Care Provider] - 7 Days CHANDNI JUNG MD [Staff Physician] - 14 Days LIANE GARZA MD [Staff Physician] - 14 Days RAMANA ELLISON MD [Staff Physician] - 14 Days Prescriptions: Amoxicillin/K Clav Tab [Augmentin 875MG TAB] 1 each PO Q12HR #28 tablet Sulfamethoxazole/Trimethoprim [Bactrim DS TAB] 1 each PO DAILY #30 tablet Fluconazole [Diflucan TAB] 2 tab PO QDAY #28 tablet Pantoprazole [Protonix TAB] 40 mg PO BIDAC #60 tablet valGANciclovir (NF) [Valcyte (Nf)] 900 mg PO BID #28 tab
[2020-09-09 18:15] VITALS: BP 110/74
== END 2020-09-09 21:40 | disposition home or self-care (01) | DRG 974 ==
LOC: ED 12:39 → 3A 15:55 → OBSVTOIN 09-03 14:37
PROVIDERS: ADMIT Internal Medicine; ATTEND Internal Medicine
PROC: 0DD68ZX Extraction of Stomach, Via Natural or Artificial Opening Endoscopic, Diagnostic (ICD-10-PCS; principal; 2020-09-04)
PROC: 0DD38ZX Extraction of Lower Esophagus, Via Natural or Artificial Opening Endoscopic, Diagnostic (ICD-10-PCS; 2020-09-04)
DX: B20 Human immunodeficiency virus [HIV] disease (principal); K22.11 Ulcer of esophagus with bleeding; B37.81 Candidal esophagitis; K29.71 Gastritis, unspecified, with bleeding; E87.1 Hypo-osmolality and hyponatremia; R65.10 Systemic inflammatory response syndrome (SIRS) of non-infectious origin without acute organ dysfunction; D62 Acute posthemorrhagic anemia; K50.90 Crohn's disease, unspecified, without complications; K21.9 Gastro-esophageal reflux disease without esophagitis; E87.6 Hypokalemia; Z88.8 Allergy status to other drugs, medicaments and biological substances
CPT/HCPCS: 36415; 71045; 71260; 74177; 80048; 80053; 81001; 82024; 82140; 82164; 83036; 84484; 85007; 85025; 86403; 86850; 86900; 86901; 86920; 87040; 87497; 87536; 87641; 87901; 88104; 88112; 88305; 88342; 93005; 93306; 96374; G0378; C9113; J1170; J1450; J1570; J1644; J1885; J2270; J2704; J2765; J7030; J7040; J7050; Q9967

== ENCOUNTER 2020-10-26 14:19 | Emergency (ER) | payer MEDICARE ==
[2020-10-26] MEDS ORDERED: ONDANSETRON 4 MG ODT TAB ONE (15:41)
--- NOTE | 2020-10-26 15:54 | Event Note ---
ED Screening Note ED Screening Note: blood in stool for a week states he has had blood in the stool for 7 years has had a colonscopy N/V today +abd pain PMHx HIV, Crohns adverse reaction to zofran not true allergy This initial assessment/diagnostic orders/clinical plan/treatment(s) is/are subject to change based on patients health status, clinical progression and re- assessment by fellow clinical providers in the ED. Further treatment and workup at subsequent clinical providers discretion. Patient/guardian urged not to elope from the ED as their condition may be serious if not clinically assessed and managed. Initial orders include: labs
[2020-10-26] MEDS ORDERED: ONDANSETRON 4 MG ODT TAB PO ONE (15:55)
[2020-10-26 16:39] LABS: Hematocrit 27.4 % (35.5-45.6); Hemoglobin 9.3 gm/dl (11.8-15.2); Mean Corpuscular HGB Conc 34 % (32-34); Mean Corpuscular Volume 84 fl (84-94); Platelet Count 171 K/mm3 (140-440); Red Blood Count 3.27 M/mm3 (3.65-5.03); Red Cell Distribution Width 15.9 % (13.2-15.2)
[2020-10-26 16:48] LABS: INR 0.98 (0.87-1.13)
[2020-10-26 16:59] LABS: Alanine Aminotransferase 77 units/L (7-56); Albumin 3.9 g/dL (3.9-5); BUN/Creatinine Ratio 19; Blood Urea Nitrogen 15 mg/dL (9-20); Calcium 8.7 mg/dL (8.4-10.2); Hemolysis Index 10
[2020-10-26] MEDS ORDERED: ZIPRASIDONE MESYLATE 20 MG VIAL IM ONE (17:23)
[2020-10-26 17:25] LABS: Basophils % (Manual) 0 % (0.0-1.8); Total Cells Counted 100
[2020-10-26 17:28] LABS: Anisocytosis Few; Platelet Estimate Consistent w Auto; Target Cells Few
[2020-10-26 17:29] LABS: Tear Drop Cells Rare
--- NOTE | 2020-10-26 18:22 | Emergency Department Report ---
HPI - HPI HPI: This is a 35-year-old -Citizen Of [place] male presents to the emergency department from home with the initial complaint of abdominal pain and rectal bleeding that he says has been going on for the past 7 years. I was first introduced to this patient today when he was wheeled back to the main emergency department just screaming and talking incoherently. Initially, the patient did respond to his name and after multiple prompts he once again says that he has a longstanding history of abdominal pain. Otherwise, the patient would not answer any other questions or follow any commands, although he remained awake. The patient has a history of HIV and Crohn's disease. The patient was seen here in June of this year and had a work-up for some altered mental status at that time. Ultimately it was decided that it may be secondary to some illicit drug use. He had negative Covid and hepatitis tests. The lumbar puncture done for meningitis was negative. And the patient was back at his normal baseline mental status prior to discharge from that visit. The patient was here last month for the comp laints of abdominal pain and GI bleed. He had an EGD done that showed ulcerative esophagitis and gastritis. <JAMEEL CHAN - Last Filed: 10/26/20 19:24> <JODIE CARLSON - Last Filed: 10/27/20 15:46> - General Chief Complaint: Abdominal Pain Time Seen by Provider: 10/26/20 15:52 ED Past Medical Hx - Past Medical History Previous Medical History?: Yes Hx Congestive Heart Failure: No Hx Diabetes: No Hx Seizures: Yes (Not on any meds.) Hx Asthma: No Hx COPD: No Hx HIV: Yes Additional medical history: Crohns Disease. lyphoma - Surgical History Past Surgical History?: Yes Additional Surgical History: Colonoscopy goes to [facility] - Social History Smoking Status: Never Smoker Substance Use Type: None <JAMEEL CHAN - Last Filed: 10/26/20 19:24> <JODIE CARLSON - Last Filed: 10/27/20 15:46> - Medications Home Medications: Home Medications Medication Instructions Recorded Confirmed Last Taken Type Amoxicillin/K Clav Tab [Augmentin 1 each PO Q12HR #28 tablet 09/09/20 Unknown Rx 875MG TAB] Fluconazole [Diflucan TAB] 2 tab PO QDAY #28 tablet 09/09/20 Unknown Rx Pantoprazole [Protonix TAB] 40 mg PO BIDAC #60 tablet 09/09/20 Unknown Rx Sulfamethoxazole/Trimethoprim 1 each PO DAILY #30 tablet 09/09/20 Unknown Rx [Bactrim DS TAB] valGANciclovir (NF) [Valcyte (Nf)] 900 mg PO BID #28 tab 09/09/20 Unknown Rx ED Review of Systems ROS: Stated complaint: ABD PAIN Other details as noted in HPI Comment: Unobtainable due to pts medical conditions Gastrointestinal: abdominal pain <JAMEEL CHAN - Last Filed: 10/26/20 19:24> ROS: Stated complaint: ABD PAIN Other details as noted in HPI <JODIE CARLSON - Last Filed: 10/27/20 15:46> Physical Exam - Physical Exam Vital Signs: Vital Signs 10/26/20 15:47 Temperature 98.0 F Pulse Rate 100 H Respiratory 20 Rate Blood Pressure 125/85 [Right] O2 Sat by Pulse 94 Oximetry Physical Exam: GENERAL: The patient is well-developed. HENT: Normocephalic. Atraumatic. Patient has moist mucous membranes. EYES: Extraocular motions are intact. NECK: Supple. Trachea is midline. CHEST/LUNGS: Clear to auscultation. There is no respiratory distress noted. HEART/CARDIOVASCULAR: Regular. There is no tachycardia. There is no murmur. ABDOMEN: Abdomen is soft, nontender. Patient has normal bowel sounds. Abdomen is nondistended. SKIN: Skin is warm and dry. NEURO: The patient is awake but only following select commands. No slurred speech but often the patient is just screaming. MUSCULOSKELETAL: There is no tenderness or deformity. There is no limitation range of motion. <JAMEEL CHAN - Last Filed: 10/26/20 19:24> - Physical Exam Vital Signs: Vital Signs 10/26/20 10/26/20 10/27/20 15:47 20:17 02:02 Temperature 98.0 F 99.4 F 99.4 F Pulse Rate 100 H 103 H 100 H Respiratory 20 18 18 Rate Blood Pressure 125/85 101/66 100/68 [Right] O2 Sat by Pulse 94 95 96 Oximetry 10/27/20 10/27/20 09:18 09:19 Temperature 97.8 F Pulse Rate 105 H Respiratory 18 20 Rate Blood Pressure 159/81 [Right] O2 Sat by Pulse 98 98 Oximetry <JODIE CARLSON - Last Filed: 10/27/20 15:46> ED Course Vital Signs 10/26/20 15:47 Temperature 98.0 F Pulse Rate 100 H Respiratory 20 Rate Blood Pressure 125/85 [Right] O2 Sat by Pulse 94 Oximetry - Reevaluation(s) Reevaluation #1: 10/26/20 19:24 Lab Results 10/26/20 10/26/20 10/26/20 Range/Units 16:11 16:11 16:11 WBC 4.2 L (4.5-11.0) K/mm3 RBC 3.27 L (3.65-5.03) M/mm3 Hgb 9.3 L (11.8-15.2) gm/dl Hct 27.4 L (35.5-45.6) % MCV 84 (84-94) fl MCH 28 (28-32) pg MCHC 34 (32-34) % RDW 15.9 H (13.2-15.2) % Plt Count 171 (140-440) K/mm3 Eos % (Auto) Auto Top Mechanic Add Manual Diff Complete Total Counted 100 Seg Neuts % (Manual) 64.0 (40.0-70.0) % Band Neutrophils % 0 % Lymphocytes % (Manual) 9.0 L (13.4-35.0) % Reactive Lymphs % (Man) 0 % Monocytes % (Manual) 13.0 H (0.0-7.3) % Eosinophils % (Manual) 14.0 H (0.0-4.3) % Basophils % (Manual) 0 (0.0-1.8) % Metamyelocytes % 0 % Myelocytes % 0 % Promyelocytes % 0 % Blast Cells % 0 % Nucleated RBC % Not Reportable Seg Neutrophils # Man 2.7 (1.8-7.7) K/mm3 Band Neutrophils # 0.0 K/mm3 Lymphocytes # (Manual) 0.4 L (1.2-5.4) K/mm3 Abs React Lymphs (Man) 0.0 K/mm3 Monocytes # (Manual) 0.5 (0.0-0.8) K/mm3 Eosinophils # (Manual) 0.6 H (0.0-0.4) K/mm3 Basophils # (Manual) 0.0 (0.0-0.1) K/mm3 Metamyelocytes # 0.0 K/mm3 Myelocytes # 0.0 K/mm3 Promyelocytes # 0.0 K/mm3 Blast Cells # 0.0 K/mm3 WBC Morphology Not Reportable Hypersegmented Neuts Not Reportable Hyposegmented Neuts Not Reportable Hypogranular Neuts Not Reportable Smudge Cells Not Reportable Toxic Granulation Not Reportable Toxic Vacuolation Not Reportable Dohle Bodies Not Reportable Pelger-Huet Anomaly Not Reportable Leah Rods Not Reportable Platelet Estimate Consistent w auto Clumped Platelets Not Reportable Plt Clumps, EDTA Not Reportable Large Platelets Not Reportable Giant Platelets Not Reportable Platelet Satelliting Not Reportable Plt Morphology Comment Not Reportable RBC Morphology Not Reportable Dimorphic RBCs Not Reportable Polychromasia Not Reportable Hypochromasia Not Reportable Poikilocytosis Not Reportable Anisocytosis Few Microcytosis Not Reportable Macrocytosis Not Reportable Spherocytes Not Reportable Pappenheimer Bodies Not Reportable Sickle Cells Not Reportable Target Cells Few Tear Drop Cells Rare Ovalocytes Not Reportable Helmet Cells Not Reportable [place] Bodies Not Reportable [place] Rings Not Reportable [place] Cells Not Reportable Bite Cells Not Reportable Crenated Cell Not Reportable Elliptocytes Not Reportable Acanthocytes (Spur) Not Reportable Rouleaux Not Reportable Hemoglobin C Crystals Not Reportable Schistocytes Not Reportable Malaria parasites Not Reportable Praveen Bodies Not Reportable Hem Pathologist Commnt No PT 12.8 (12.2-14.9) Sec. INR 0.98 (0.87-1.13) APTT 30.0 (24.2-36.6) Sec. Sodium 140 (137-145) mmol/L Potassium 3.6 (3.6-5.0) mmol/L Chloride 106.0 (98-107) mmol/L Carbon Dioxide 25 (22-30) mmol/L Anion Gap 13 mmol/L BUN 15 (9-20) mg/dL Creatinine 0.8 (0.8-1.3) mg/dL Estimated GFR > 60 ml/min BUN/Creatinine Ratio 19 % Glucose 98 (75-100) mg/dL Calcium 8.7 (8.4-10.2) mg/dL Total Bilirubin 0.30 (0.1-1.2) mg/dL AST 88 H (5-40) units/L ALT 77 H (7-56) units/L Alkaline Phosphatase 132 H (35-129) units/L Total Protein 8.5 H (6.3-8.2) g/dL Albumin 3.9 (3.9-5) g/dL Albumin/Globulin Ratio 0.8 % Lipase 20 (13-60) units/L Acetaminophen (10.0-30.0) ug/mL Plasma/Serum Alcohol (0-0.07) % Blood Type Antibody Screen 10/26/20 10/26/20 10/26/20 Range/Units 16:11 17:37 17:37 WBC (4.5-11.0) K/mm3 RBC (3.65-5.03) M/mm3 Hgb (11.8-15.2) gm/dl Hct (35.5-45.6) % MCV (84-94) fl MCH (28-32) pg MCHC (32-34) % RDW (13.2-15.2) % Plt Count (140-440) K/mm3 Eos % (Auto) Add Manual Diff Total Counted Seg Neuts % (Manual) (40.0-70.0) % Band Neutrophils % % Lymphocytes % (Manual) (13.4-35.0) % Reactive Lymphs % (Man) % Monocytes % (Manual) (0.0-7.3) % Eosinophils % (Manual) (0.0-4.3) % Basophils % (Manual) (0.0-1.8) % Metamyelocytes % % Myelocytes % % Promyelocytes % % Blast Cells % % Nucleated RBC % Seg Neutrophils # Man (1.8-7.7) K/mm3 Band Neutrophils # K/mm3 Lymphocytes # (Manual) (1.2-5.4) K/mm3 Abs React Lymphs (Man) K/mm3 Monocytes # (Manual) (0.0-0.8) K/mm3 Eosinophils # (Manual) (0.0-0.4) K/mm3 Basophils # (Manual) (0.0-0.1) K/mm3 Metamyelocytes # K/mm3 Myelocytes # K/mm3 Promyelocytes # K/mm3 Blast Cells # K/mm3 WBC Morphology Hypersegmented Neuts Hyposegmented Neuts Hypogranular Neuts Smudge Cells Toxic Granulation Toxic Vacuolation Dohle Bodies Pelger-Huet Anomaly Leah Rods Platelet Estimate Clumped Platelets Plt Clumps, EDTA Large Platelets Giant Platelets Platelet Satelliting Plt Morphology Comment RBC Morphology Dimorphic RBCs Polychromasia Hypochromasia Poikilocytosis Anisocytosis Microcytosis Macrocytosis Spherocytes Pappenheimer Bodies Sickle Cells Target Cells Tear Drop Cells Ovalocytes Helmet Cells [place] Bodies [place] Rings [place] Cells Bite Cells Crenated Cell Elliptocytes Acanthocytes (Spur) Rouleaux Hemoglobin C Crystals Schistocytes Malaria parasites Praveen Bodies Hem Pathologist Commnt PT (12.2-14.9) Sec. INR (0.87-1.13) APTT (24.2-36.6) Sec. Sodium (137-145) mmol/L Potassium (3.6-5.0) mmol/L Chloride (98-107) mmol/L Carbon Dioxide (22-30) mmol/L Anion Gap mmol/L BUN (9-20) mg/dL Creatinine (0.8-1.3) mg/dL Estimated GFR ml/min BUN/Creatinine Ratio % Glucose (75-100) mg/dL Calcium (8.4-10.2) mg/dL Total Bilirubin (0.1-1.2) mg/dL AST (5-40) units/L ALT (7-56) units/L Alkaline Phosphatase (35-129) units/L Total Protein (6.3-8.2) g/dL Albumin (3.9-5) g/dL Albumin/Globulin Ratio % Lipase (13-60) units/L Acetaminophen 5.0 L (10.0-30.0) ug/mL Plasma/Serum Alcohol < 0.01 (0-0.07) % Blood Type A POSITIVE Antibody Screen Negative Reevaluation #3: 10/26/20 19:25 The patient was reevaluated after returning from CT scan, and after receiving some Geodon earlier in the evening. At this point the patient is more oriented and cooperative. The patient is aware that he came back from triage screaming excessively, but that has since stopped. He says that it was due to abdominal pain but that does not seem likely. At this point he is resting comfortably, and is easily arousable. <JAMEEL CHAN - Last Filed: 10/26/20 19:24> Vital Signs 10/26/20 10/26/20 10/27/20 15:47 20:17 02:02 Temperature 98.0 F 99.4 F 99.4 F Pulse Rate 100 H 103 H 100 H Respiratory 20 18 18 Rate Blood Pressure 125/85 101/66 100/68 [Right] O2 Sat by Pulse 94 95 96 Oximetry 10/27/20 10/27/20 09:18 09:19 Temperature 97.8 F Pulse Rate 105 H Respiratory 18 20 Rate Blood Pressure 159/81 [Right] O2 Sat by Pulse 98 98 Oximetry <[id number] Renan. - Last Filed: 10/27/20 15:46> ED Medical Decision Making - Lab Data Result diagrams: 10/26/20 16:11 10/26/20 16:11 - Radiology Data Radiology results: report reviewed CT abdomen pelvis wo con INDICATION / CLINICAL INFORMATION: Abd pain. TECHNIQUE: All CT scans at this location are performed using CT dose reduction for ALARA by means of automated exposure control. COMPARISON: 09/03/2020 FINDINGS: No free fluid is seen in the abdomen. There is a tiny nonobstructing stone present in the right kidney. The liver, spleen, left kidney, pancreas, adrenal glands and great vessels are normal. No enlarged mesenteric or retroperitoneal lymph nodes are seen. A moderate amount of fecal material is present in the colon. In the pelvis, no free fluid is seen. No enlarged lymph nodes are identified. The bl adder and the appendix are normal. A large amount of fecal material seen in the rectum no significant skeletal abnormality is seen. IMPRESSION: 1. Moderate amount of fecal material throughout the colon with a large amount of fecal material present in the rectum raising the question of constipation 2. Tiny nonobstructing right renal stone - Medical Decision Making This patient initially came in through triage with complaint of acute on chronic abdominal pain and alleged rectal bleeding. However, as the patient was being triaged, he began screaming excessively and continues to do so as he was brought back into the main emergency department. When the patient is asked questions, he will often stop screaming and did answer a few questions for me, but then stopped being cooperative and just continued screaming. The patient was given a dose of Geodon so that we could continue his evaluation including further blood work and imaging. It was also at this point that the patient was made a 1013 as he did not exhibit that he had normal decision-making capacity and this may have been signs of acute psychosis. The patient's blood work shows some mild transaminitis and there is some anemia with a hemoglobin of 9.3. However, the hemoglobin has gone up almost 1 g in the past month despite his complaint of the rectal bleeding. A CT scan of the abdomen and pelvis without contrast was completed that showed some possible mild constipation, but otherwise there was no acute abdominal or pelvic process found. We are still awaiting a urine sample for UDS and UA. Vital signs have been reassuring throughout his ED course thus far. The patient was reevaluated after returning from CT scan and appears more appropriate. He is easily arousable and is oriented, AAO x3. Patient is still waiting for an evaluation from the psychiatric assessment team. If he remains awake, oriented, and appropriate, they may deem that the patient does not require the 1013 any longer or inpatient stabilization. If this is the case, then the patient will be discharged home to follow-up with primary care, outpatient psychiatry and gastroenterology. I have placed some discharge instructions at the patient should avoid acetaminophen and alcohol until follow- up with gastroenterology secondary to the transaminitis. If the decision is made that the patient does require inpatient stabilization, I would consider this patient medically cleared. <JAMEEL CHAN - Last Filed: 10/26/20 19:24> - Lab Data Result diagrams: 10/26/20 16:11 10/26/20 16:11 - Medical Decision Making Patient seen and evaluated by psychiatry. They do not feel that patient meets inpatient criteria. Letter to Dr. Addison know patient needs to follow-up with PCP, outpatient psych and GI. Will discharge at this time. <JODIE CARLSON - Last Filed: 10/27/20 15:46> Critical care attestation.: If time is entered above; I have spent that time in minutes in the direct care of this critically ill patient, excluding procedure time. <JAMEEL CHAN - Last Filed: 10/26/20 19:24> Critical care attestation.: If time is entered above; I have spent that time in minutes in the direct care of this critically ill patient, excluding procedure time. <JODIE CARLSON - Last Filed: 10/27/20 15:46> ED Disposition Is pt being admited?: No <JAMEEL CHAN - Last Filed: 10/26/20 19:24> Is pt being admited?: No <JODIE CARLSON - Last Filed: 10/27/20 15:46> Clinical Impression: History of Crohn's disease, Abdominal pain, Acute psychosis, History of GI bleed, Anemia Disposition: TO HOME OR SELFCARE Condition: Stable Instructions: Abdominal Pain, Adult Additional Instructions: You are found to have slightly elevated liver enzymes on your blood work done today. Please avoid any acetaminophen/Tylenol use, or any alcohol use/abuse, until follow-up with the cement and concrete plant worker. Professional and Agency Contacts To help [facility] Cr[facility](19/06) [place] Crisis Line: Suicide Prevention Line: Crisis Text Line: Text START to 088772 Emergency: 911 Outpatient COMMUNITY Behavioral Health Resources: [facility]: [facility] [address], [place] [address] [place]: [facility] - [address] [place] [address] Monday thru Monday - 8am - 5pm [facility] Address: [address] [place] [address] Monday thru Monday- 7am-2pm [facility] Address: [address] [place] [address] Monday thru Monday: 8:30AM-5PM Referrals: PRIMARY CARE, [Primary Care Provider] - 3-5 Days [facility] [Provider Group] - 3-5 Days
--- NOTE | 2020-10-26 19:19 | Cat Scan Report ---
CT abdomen pelvis wo con INDICATION / CLINICAL INFORMATION: Abd pain. TECHNIQUE: All CT scans at this location are performed using CT dose reduction for ALARA by means of automated e xposure control. COMPARISON: 09/03/2020 FINDINGS: No free fluid is seen in the abdomen. There is a tiny nonobstructing stone present in the right kidne y. The liver, spleen, left kidney, pancreas, adrenal glands and great vessels are normal. No enlarged mesenteric or retroperitoneal lymph nodes are seen. A moderate amount of fecal material is present i n the colon. In the pelvis, no free fluid is seen. No enlarged lymph nodes are identified. The bladder and the davi endix are normal. A large amount of fecal material seen in the rectum no significant skeletal abnorma lity is seen. IMPRESSION: 1. Moderate amount of fecal material throughout the colon with a large amount of fecal material prese nt in the rectum raising the question of constipation 2. Tiny nonobstructing right renal stone Signer Name: Ion Guardado MD FACR Signed: 10/26/2020 7:14 PM Workstation Name: [id number]
[2020-10-27 00:40] LABS: Amphetamine Screen,Urine PRESUMPTIVE NEGATIVE; Bacteria,Urine 1+ /HPF (Negative); Benzodiazepines Screen,Urine PRESUMPTIVE NEGATIVE; Bilirubin,Urine NEG (Negative); Blood,Urine NEG (Negative); Cannabinoid Screen,Urine PRESUMPTIVE NEGATIVE; Cocaine Screen,Urine PRESUMPTIVE NEGATIVE; Color,Urine Yellow (Yellow); Hyaline Casts,Urine 3 /LPF; Methadone Screen,Urine PRESUMPTIVE NEGATIVE; Mucus,Urine 3+ /HPF; Opiate Screen,Urine PRESUMPTIVE NEGATIVE
--- NOTE | 2020-10-27 08:24 | Consultation ---
History of Present Illness - Reason for Consult Consult date: 10/27/20 Reason for consult: MHE Requesting physician: JAMEEL CHAN - History of Present Psychiatric Illness Per ED Provider: This is a 35-year-old -[place] male presents to the emergency department from home with the initial complaint of abdominal pain and rectal bleeding that he says has been going on for the past 7 years. I was first introduced to this patient today when he was wheeled back to the main emergency department just screaming and talking incoherently. Initially, the patient did respond to his name and after multiple prompts he once again says that he has a longstanding history of abdominal pain. Otherwise, the patient would not answer any other questions or follow any commands, although he remained awake. The patient has a history of HIV and Crohn's disease. The patient was seen here in June of this year and had a work-up for some altered mental status at that time. Ultimately it was decided that it may be secondary to some illicit drug use. He had negative Covid and hepatitis tests. The lumbar puncture done for meningitis was negative. And the patient was back at his normal baseline mental status prior to discharge from that visit. The patient was here last month for the complaints of abdominal pain and GI bleed. He had an EGD done that showed ulcerative esophagitis and gastritis. PSYCH HPI Patient is a 35-year-old single currently unemployed -[place] male with past medical history of HIV with medication noncompliance, esophagitis and chronic abdominal pain with no significant past psychiatric history who presented to the ER with with medical complaints but due to behavioral presentation was recommended for psychiatric evaluation. Patient is a was in room patient reported he knows where he is, patient knows the year the month states did not the governor and the president. Patient states that he has history of HIV has not followed up with his saw grinder for a while has been out of his HIV medication, reports he suffers from GI bleeding which is chronic and severe abdominal pain which is why he presented to the hospital for medical management but he is apprised he was referred for mental evaluation. patient denies any prior mental health history. She says he is not suicidal homicidal or does not want to hurt himself in any way or form. PAST PSYCHIATRIC HISTORY Diagnoses: none reported Suicide attempts or Self-harm behavior: none reported Prior psychiatric hospitalizations: none reported Substance Abuse history: Previous psychiatric medications tried: none reported Outpatient treatment: none reported PAST MEDICAL HISTORY: HIV, Crohn's disease, esophagitis and chronic GI bleed. Family Psychiatric History: None reported or documented SOCIAL HISTORY Marital Status: Single Living Arrangements: own place Employment Status: Unemployed Access to guns/weapons: None reported Education: College job History of Abuse: Legal History: none reported REVIEW OF SYSTEMS Constitutional: Negative for weight loss ENT: Negative for stridor Respiratory: Negative for cough or hemoptysis All other systems reviewed and are negative MENTAL STATUS EXAMINATION General Appearance and Behavior: Age appropriate, good hygiene, wearing appropriate clothes, good eye contact, cooperative polite with questioning. Cooperation: Participating/engaged Psychomotor Behavior: unremarkable and within normal limits Mood: Good Affect and affective range: congruent with mood Thought Process: Fluent/Logical, Thought Content: Within reality, Speech: Normal volume, Regular rate and rhythm, Intellectual Functioning: Average Suicidal Ideation: Denies SI Homicidal Ideation: Denies HI Impulse Control: Unimpaired Insight and Judgment: Normal insight and judgment, Memory: Normal, Attention: Normal, Orientation: Alert, oriented, Diagnoses: Assessment and Plan - Psychiatric problem (1) Behavior concern in adult Current Visit: Yes Status: Acute Treatment Plan Do not see any need for acute inpatient psychiatric hospitalization management at this time due to patient consistently persistent complaint of somatic symptoms. MEDICATIONS: Risks, benefits and alternatives of medications discussed with the patient, questions answered and consent obtained from patient. PSYCHOTHERAPY: Supportive psychotherapy provided MEDICAL: Per primary team DELIRIUM PRECAUTIONS: Please re-orient patient frequently, keep lights on during the day, and minimize benzodiazepines and opiates as these medications could worsen patient's confusion. COKE DRAWER: DISPOSITION: Do Not Recommend acute inpatient psychiatric hospitalization at this time LEGAL STATUS: Rescinded 1013 FOLLOW-UP: Will sign off Thank you for the consult. Please contact with any questions and/or concerns. Medications and Allergies Allergies Allergy/AdvReac Type Severity Reaction Status Date / Time ondansetron [From Zofran] AdvReac Unknown Verified 10/26/20 15:49 Home Medications Medication Instructions Recorded Confirmed Last Taken Type Amoxicillin/K Clav Tab [Augmentin 1 each PO Q12HR #28 tablet 09/09/20 Unknown Rx 875MG TAB] Fluconazole [Diflucan TAB] 2 tab PO QDAY #28 tablet 09/09/20 Unknown Rx Pantoprazole [Protonix TAB] 40 mg PO BIDAC #60 tablet 09/09/20 Unknown Rx Sulfamethoxazole/Trimethoprim 1 each PO DAILY #30 tablet 09/09/20 Unknown Rx [Bactrim DS TAB] valGANciclovir (NF) [Valcyte (Nf)] 900 mg PO BID #28 tab 09/09/20 Unknown Rx Mental Status Exam - Vital signs Last Vital Signs Temp 99.4 F 10/27/20 02:02 Pulse 100 H 10/27/20 02:02 Resp 18 10/27/20 02:02 BP 100/68 10/27/20 02:02 Pulse Ox 96 10/27/20 02:02 Results Result Diagrams: 10/26/20 16:11 10/26/20 16:11 Abnormal lab results 10/26/20 10/26/20 10/26/20 Range/Units 16:11 16:11 17:37 WBC 4.2 L (4.5-11.0) K/mm3 RBC 3.27 L (3.65-5.03) M/mm3 Hgb 9.3 L (11.8-15.2) gm/dl Hct 27.4 L (35.5-45.6) % RDW 15.9 H (13.2-15.2) % Lymphocytes % (Manual) 9.0 L (13.4-35.0) % Monocytes % (Manual) 13.0 H (0.0-7.3) % Eosinophils % (Manual) 14.0 H (0.0-4.3) % Lymphocytes # (Manual) 0.4 L (1.2-5.4) K/mm3 Eosinophils # (Manual) 0.6 H (0.0-0.4) K/mm3 AST 88 H (5-40) units/L ALT 77 H (7-56) units/L Alkaline Phosphatase 132 H (35-129) units/L Total Protein 8.5 H (6.3-8.2) g/dL Acetaminophen 5.0 L (10.0-30.0) ug/mL All other labs normal. Assessment and Plan - Psychiatric problem (1) Behavior concern in adult Current Visit: Yes Status: Acute
[2020-10-27 09:19] VITALS: BP 159/81
== END 2020-10-27 10:34 | disposition home or self-care (01) ==
LOC: ED 14:19
DX: K92.2 Gastrointestinal hemorrhage, unspecified (principal); D64.9 Anemia, unspecified; K50.90 Crohn's disease, unspecified, without complications; F23 Brief psychotic disorder; R10.9 Unspecified abdominal pain; Z21 Asymptomatic human immunodeficiency virus [HIV] infection status; Z98.890 Other specified postprocedural states; Z88.8 Allergy status to other drugs, medicaments and biological substances
CPT/HCPCS: 36415; 74176; 80053; 80307; 81001; 83690; 85007; 85025; 85610; 85730; 86850; 86900; 86901; 96372; 99285; J3486; 80320; G0480; Q0162